=== PATIENT | female | born 1960 | race Caucasian/White ===

== ENCOUNTER → 2016-04-29 | Outpatient (CLI) | payer MEDICAID ==
[~2016-04-29] MED LIST: ACLI400A INH; ALBU0.8322 IH; ALBU2.5V4 INH; ALBU8.5H2 IH; ALBU8.5H2 PO; ALPR.5T PO; ALPR0.254 PO; ALPR0.5T7 PO; AZIT-21 PO; AZIT500T PO; CEFD300C PO; CEFD300C3 PO; CITA20TA4 PO; CLN150C PO; D50KC PO; DICL500C PO; DXCC100C PO; FLUT16SP22; FLUT1DIS27 IH; HYDR-2856 PO; HYDR1TAB PO; HYDR25TA4 PO; IBP800T PO; IPRA3AMP11 INH; IPRA4AER IH; IPRA4AER INH; LEVO500T69 PO; LORA10TA7 PO; LOSA50TA6 PO; Levofloxacin PO; Loratadine PO; MELO-195 PO; MONT10TA21 PO; MULT-974 PO; Montelukast Sodium PO; ONDA8TAB9 PO; POTA10CA43 PO; PRD20T PO; PRD50T PO; PRM25T PO; Prednisone PO; RT-COMBINH IH; SLMFT1E IH; TRAZ-144 PO; TRM50T PO; ZEMAIRA IV; [UNRECOGNIZED DRUG - OTHER]
[2016-04-29 14:30] LABS: BLOOD UREA NITROGEN 20 MG/DL (7-18); BUN/CREATININE RATIO 27; CREATININE SERUM 0.73 MG/DL (0.60-1.30); GFR ESTIMATED > 60
== END ==
LOC: LAB 14:02
PROVIDERS: ATTEND Internal Medicine Critical Care Medicine
DX: R09.02 Hypoxemia (principal)
CPT/HCPCS: 36415; 82565; 84520

== ENCOUNTER → 2016-04-30 | Outpatient (CLI) | payer MEDICAID ==
[~2016-04-30] MED LIST changes: +CATHETER FLUSH 10 ML SYR IV PRN; +IOHEXOL 350 MG/ML 100 ML (OMNIPAQUE 350) VIAL IV ONE; +NS 100 ML (IVPB) BAG IV ONE
--- NOTE | 2016-04-30 14:15 | Diagnostic Imaging Report ---
PROCEDURE: CT chest with contrast only. TECHNIQUE: Multiple contiguous axial images were obtained through the chest after administration of intravenous contrast. INDICATION: Asthma, anxiety, shortness of breath, oxygen at rehabilitation fell onto the 70% range. COMPARISON STUDY: CTA of the chest from 01/28/16. FINDINGS: Standard noncontrast images demonstrate no large pulmonary emboli. Smaller vessels cannot be well evaluated. No aortic dissection or aneurysm is present. The heart size is normal. No vascular calcifications are seen. There is no abnormal adenopathy. The visualized portions of the abdomen appear normal. Emphysematous changes are again seen within the lungs. No acute infiltrates are present. There are no pulmonary nodules. IMPRESSION: Stable emphysematous changes. Dictated by: Dictated on workstation # [id number]
== END ==
LOC: RAD 12:37
PROVIDERS: ATTEND Internal Medicine Critical Care Medicine
DX: R09.02 Hypoxemia (principal); R06.02 Shortness of breath; J45.909 Unspecified asthma, uncomplicated; E88.01 Alpha-1-antitrypsin deficiency; F41.9 Anxiety disorder, unspecified
CPT/HCPCS: 71260

== ENCOUNTER → 2016-05-27 | Outpatient (RCR) | payer MEDICAID ==
[2016-02-27 10:59] LABS: BASOPHILS # (AUTO) 0.1 10^3/uL (0.0-0.1); BASOPHILS % (AUTO) 1 % (0-10); EOSINOPHILS # (AUTO) 0.2 10^3/uL (0.0-0.3); EOSINOPHILS % (AUTO) 3 % (0-10); LYMPHOCYTES % (AUTO) 20 % (12-44); MEAN CORPUSCULAR HEMOGLOBIN 29 PG (25-34); MEAN CORPUSCULAR HGB CONC 33 G/DL (32-36); MEAN CORPUSCULAR VOLUME 88 FL (80-99); MEAN PLATELET VOLUME 10.4 FL (7.4-10.4); MONOCYTES # (AUTO) 0.8 X 10^3 (0.0-1.0); MONOCYTES % (AUTO) 15 % (0-12); NEUTROPHILS % (AUTO) 60 % (42-75); PLATELET COUNT 157 10^3/uL (130-400); RED BLOOD COUNT 4.75 10^6/uL (4.35-5.85); RED CELL DISTRIBUTION WIDTH 13.8 % (10.0-14.5)
[2016-02-27 11:45] LABS: ALANINE AMINOTRANSFERASE 20 U/L (0-55); ALBUMIN 3.9 G/DL (3.2-4.5); ANION GAP 7 MMOL/L (5-14); ASPARTATE AMINO TRANSFERASE 17 U/L (5-34); BILIRUBIN,TOTAL 0.4 MG/DL (0.1-1.0); BLOOD UREA NITROGEN 21 MG/DL (7-18); BUN/CREATININE RATIO 28; CALCIUM 9.3 MG/DL (8.5-10.1); CARBON DIOXIDE 29 MMOL/L (21-32); CHLORIDE 102 MMOL/L (98-107); CREATININE SERUM 0.74 MG/DL (0.60-1.30); GFR ESTIMATED > 60; GLUCOSE 103 MG/DL (70-105); POTASSIUM 4.3 MMOL/L (3.6-5.0); SODIUM 138 MMOL/L (135-145)
[~2016-05-27] MED LIST changes: -CATHETER FLUSH 10 ML SYR IV PRN; -IOHEXOL 350 MG/ML 100 ML (OMNIPAQUE 350) VIAL IV ONE; -NS 100 ML (IVPB) BAG IV ONE
== END | disposition home or self-care (01) ==
LOC: ONC 02-27 10:34 → PULM 03-18 08:18
PROVIDERS: ATTEND Nurse Practitioner Family
DX: D50.9 Iron deficiency anemia, unspecified (principal); E88.01 Alpha-1-antitrypsin deficiency; I12.9 Hypertensive chronic kidney disease with stage 1 through stage 4 chronic kidney disease, or unspecified chronic kidney disease; N18.9 Chronic kidney disease, unspecified; J44.9 Chronic obstructive pulmonary disease, unspecified; Z79.899 Other long term (current) drug therapy
CPT/HCPCS: 36415; 80053; 82728; 85025; 99211; 99213

== ENCOUNTER → 2016-08-05 | Outpatient (CLI) | payer MEDICAID ==
--- NOTE | 2016-08-05 14:25 | Diagnostic Imaging Report ---
EXAMINATION: PA and lateral views of the chest. INDICATION: Bronchitis. FINDINGS: There is an infusion port through the left subclavian vein with the tip at the cavoatrial junction. The lungs are hyperinflated. There is blunting of the left costophrenic angle suggestive of small effusion or pleural thickening, similar to 01/28/2016. There is minimal bibasilar atelectasis. The mediastinum and héctor appear unremarkable. IMPRESSION: COPD. Minimal bibasilar atelectasis. Dictated by: Dictated on workstation # [id number]
== END ==
LOC: RAD 12:32
PROVIDERS: ATTEND Nurse Practitioner Family
DX: J40 Bronchitis, not specified as acute or chronic (principal); J96.10 Chronic respiratory failure, unspecified whether with hypoxia or hypercapnia
CPT/HCPCS: 71020

== ENCOUNTER 2016-08-21 13:00 | Outpatient (RCR) | payer MEDICAID | END 2016-09-03 | disposition home or self-care (01) | LOC: PULM 13:00 | PROVIDERS: ATTEND Nurse Practitioner Family | DX: D50.9 Iron deficiency anemia, unspecified (principal); E88.01 Alpha-1-antitrypsin deficiency; I12.9 Hypertensive chronic kidney disease with stage 1 through stage 4 chronic kidney disease, or unspecified chronic kidney disease; N18.9 Chronic kidney disease, unspecified; J44.9 Chronic obstructive pulmonary disease, unspecified; Z79.899 Other long term (current) drug therapy ==

== ENCOUNTER 2016-09-17 09:01 | Outpatient (RCR) | payer MEDICAID ==
[2016-09-16 14:06] LABS: BASOPHILS # (AUTO) 0.1 10^3/uL (0.0-0.1); BASOPHILS % (AUTO) 1 % (0-10); EOSINOPHILS # (AUTO) 0.2 10^3/uL (0.0-0.3); EOSINOPHILS % (AUTO) 4 % (0-10); LYMPHOCYTES # (AUTO) 1.3 X 10^3 (1.0-4.0); LYMPHOCYTES % (AUTO) 24 % (12-44); MEAN CORPUSCULAR HEMOGLOBIN 29 PG (25-34); MEAN CORPUSCULAR HGB CONC 32 G/DL (32-36); MEAN CORPUSCULAR VOLUME 89 FL (80-99); MEAN PLATELET VOLUME 10.3 FL (7.4-10.4); MONOCYTES # (AUTO) 0.6 X 10^3 (0.0-1.0); MONOCYTES % (AUTO) 11 % (0-12); NEUTROPHILS # (AUTO) 3.1 X 10^3 (1.8-7.8); NEUTROPHILS % (AUTO) 60 % (42-75); PLATELET COUNT 182 10^3/uL (130-400); RED BLOOD COUNT 4.62 10^6/uL (4.35-5.85); RED CELL DISTRIBUTION WIDTH 14.1 % (10.0-14.5); WHITE BLOOD COUNT 5.2 10^3/uL (4.3-11.0)
[2016-09-16 14:46] LABS: ALANINE AMINOTRANSFERASE 20 U/L (0-55); ALBUMIN 3.9 GM/DL (3.2-4.5); ANION GAP 10 MMOL/L (5-14); ASPARTATE AMINO TRANSFERASE 14 U/L (5-34); BILIRUBIN,TOTAL 0.5 MG/DL (0.1-1.0); BLOOD UREA NITROGEN 14 MG/DL (7-18); BUN/CREATININE RATIO 19; CALCIUM 9.4 MG/DL (8.5-10.1); CARBON DIOXIDE 30 MMOL/L (21-32); CHLORIDE 98 MMOL/L (98-107); CREATININE SERUM 0.74 MG/DL (0.60-1.30); GFR ESTIMATED > 60; GLUCOSE 88 MG/DL (70-105); POTASSIUM 3.9 MMOL/L (3.6-5.0); SODIUM 138 MMOL/L (135-145); TOTAL PROTEIN 7.1 GM/DL (6.4-8.2)
== END 2016-11-22 | disposition home or self-care (01) ==
LOC: ONC 09:01
PROVIDERS: ATTEND Internal Medicine Hematology & Oncology
DX: D50.9 Iron deficiency anemia, unspecified (principal); E88.01 Alpha-1-antitrypsin deficiency; I12.9 Hypertensive chronic kidney disease with stage 1 through stage 4 chronic kidney disease, or unspecified chronic kidney disease; N18.9 Chronic kidney disease, unspecified; J44.9 Chronic obstructive pulmonary disease, unspecified; Z79.899 Other long term (current) drug therapy
CPT/HCPCS: 36415; 80053; 82728; 85025; 99213

== ENCOUNTER 2016-10-28 13:00 | Outpatient (RCR) | payer MEDICAID | END 2016-11-22 | disposition home or self-care (01) | LOC: PULM 13:00 | PROVIDERS: ATTEND Nurse Practitioner Family | DX: D50.9 Iron deficiency anemia, unspecified (principal); E88.01 Alpha-1-antitrypsin deficiency; I12.9 Hypertensive chronic kidney disease with stage 1 through stage 4 chronic kidney disease, or unspecified chronic kidney disease; N18.9 Chronic kidney disease, unspecified; J44.9 Chronic obstructive pulmonary disease, unspecified; Z79.899 Other long term (current) drug therapy ==

== ENCOUNTER 2017-02-03 13:00 | Outpatient (RCR) | payer MEDICAID | END 2017-02-23 | disposition home or self-care (01) | LOC: PULM 13:00 | PROVIDERS: ATTEND Nurse Practitioner Family | DX: D50.9 Iron deficiency anemia, unspecified (principal); E88.01 Alpha-1-antitrypsin deficiency; I12.9 Hypertensive chronic kidney disease with stage 1 through stage 4 chronic kidney disease, or unspecified chronic kidney disease; N18.9 Chronic kidney disease, unspecified; J44.9 Chronic obstructive pulmonary disease, unspecified; Z79.899 Other long term (current) drug therapy ==

== ENCOUNTER 2017-04-07 13:00 | Outpatient (RCR) | payer MEDICAID | END 2017-05-25 | disposition home or self-care (01) | LOC: PULM 13:00 | PROVIDERS: ATTEND Nurse Practitioner Family | DX: D50.9 Iron deficiency anemia, unspecified (principal); E88.01 Alpha-1-antitrypsin deficiency; I12.9 Hypertensive chronic kidney disease with stage 1 through stage 4 chronic kidney disease, or unspecified chronic kidney disease; N18.9 Chronic kidney disease, unspecified; J44.9 Chronic obstructive pulmonary disease, unspecified; Z79.899 Other long term (current) drug therapy ==

== ENCOUNTER 2017-09-24 08:57 | Outpatient (RCR) | payer MEDICAID ==
[2017-09-17 15:50] LABS: BASOPHILS # (AUTO) 0.1 10^3/uL (0.0-0.1); BASOPHILS % (AUTO) 1 % (0-10); EOSINOPHILS # (AUTO) 0.2 10^3/uL (0.0-0.3); EOSINOPHILS % (AUTO) 3 % (0-10); HEMATOCRIT 43 % (35-52); HEMOGLOBIN 14.6 G/DL (11.5-16.0); LYMPHOCYTES # (AUTO) 1.3 X 10^3 (1.0-4.0); LYMPHOCYTES % (AUTO) 25 % (12-44); MEAN CORPUSCULAR HEMOGLOBIN 30 PG (25-34); MEAN CORPUSCULAR HGB CONC 34 G/DL (32-36); MEAN CORPUSCULAR VOLUME 87 FL (80-99); MEAN PLATELET VOLUME 10.6 FL (7.4-10.4); MONOCYTES # (AUTO) 0.5 X 10^3 (0.0-1.0); MONOCYTES % (AUTO) 10 % (0-12); NEUTROPHILS # (AUTO) 3.2 X 10^3 (1.8-7.8); NEUTROPHILS % (AUTO) 61 % (42-75); PLATELET COUNT 189 10^3/uL (130-400); RED BLOOD COUNT 4.89 10^6/uL (4.35-5.85); RED CELL DISTRIBUTION WIDTH 13.6 % (10.0-14.5); WHITE BLOOD COUNT 5.3 10^3/uL (4.3-11.0)
[2017-09-17 16:10] LABS: ALANINE AMINOTRANSFERASE 18 U/L (0-55); ALBUMIN 4.1 GM/DL (3.2-4.5); ALKALINE PHOSPHATASE 94 U/L (40-136); BILIRUBIN,TOTAL 0.6 MG/DL (0.1-1.0); BUN/CREATININE RATIO 16; CALCIUM 10.2 MG/DL (8.5-10.1); CARBON DIOXIDE 29 MMOL/L (21-32); CHLORIDE 103 MMOL/L (98-107); GFR ESTIMATED > 60; GLUCOSE 94 MG/DL (70-105); POTASSIUM 4.8 MMOL/L (3.6-5.0); SODIUM 138 MMOL/L (135-145); TOTAL PROTEIN 7.2 GM/DL (6.4-8.2)
[~2017-09-24 08:57] MED LIST changes: +ACLI400A2 IH; +ALBU90AE IH; +ALPH1000 IV; +AZIT250T12 PO; +CETI10TA17 PO; +CITA20TA9 PO; +FLUT16SP22 NSEACH; +FLUT1DIS26 IH; +FURO40TA4 PO; +LOSA50TA7 PO; +MELO15TA39 PO; +MONT10TA24 PO; +MULT-1021 PO; +PRD10T PO; +TRAZ-190 PO
== END 2017-12-16 | disposition home or self-care (01) ==
LOC: ONC 08:57
PROVIDERS: ATTEND Internal Medicine Hematology & Oncology
DX: D50.9 Iron deficiency anemia, unspecified (principal); E88.01 Alpha-1-antitrypsin deficiency; I12.9 Hypertensive chronic kidney disease with stage 1 through stage 4 chronic kidney disease, or unspecified chronic kidney disease; N18.9 Chronic kidney disease, unspecified; J44.9 Chronic obstructive pulmonary disease, unspecified; Z79.899 Other long term (current) drug therapy
CPT/HCPCS: 80053; 82728; 85025; 99213

== ENCOUNTER → 2017-10-07 | Outpatient (CLI) | payer MEDICAID ==
[~2017-10-07] MED LIST changes: +LOSA50TA36 PO; -LOSA50TA7 PO; +RT-ALBUTEROL SULF 2.5 MG/3 ML PRE-MIX VIAL INH ONE; +RT-ALBUTEROL SULF 2.5 MG/3 ML PRE-MIX VIAL ONE
== END ==
LOC: RT 11:39
PROVIDERS: ATTEND Nurse Practitioner Family
DX: J96.10 Chronic respiratory failure, unspecified whether with hypoxia or hypercapnia (principal); J45.909 Unspecified asthma, uncomplicated; E88.01 Alpha-1-antitrypsin deficiency; E66.01 Morbid (severe) obesity due to excess calories; Z68.43 Body mass index [BMI] 50.0-59.9, adult
CPT/HCPCS: 94060; 94726; 94729

== ENCOUNTER 2017-10-27 10:00 | Outpatient (RCR) | payer MEDICAID ==
[2017-09-29 10:15] VITALS: BP 120/70
[2017-09-29 11:09] VITALS: BP 120/80
[2017-10-01 10:05] VITALS: BP 150/60
[2017-10-01 11:10] VITALS: BP 120/60
[2017-10-08 10:00] VITALS: BP 110/60
[2017-10-08 11:00] VITALS: BP 120/80
[2017-10-15 10:00] VITALS: BP 120/60
[2017-10-15 11:02] VITALS: BP 120/70
[~2017-10-27 10:00] MED LIST changes: -LOSA50TA36 PO; +LOSA50TA7 PO; -RT-ALBUTEROL SULF 2.5 MG/3 ML PRE-MIX VIAL INH ONE; -RT-ALBUTEROL SULF 2.5 MG/3 ML PRE-MIX VIAL ONE
[2017-10-27 10:05] VITALS: BP 125/75
[2017-11-12 10:20] VITALS: BP 116/80
[2017-11-12 10:55] VITALS: BP 139/61
== END 2017-11-08 | disposition home or self-care (01) ==
LOC: PULM 10:00
PROVIDERS: ATTEND Internal Medicine Critical Care Medicine
DX: J96.10 Chronic respiratory failure, unspecified whether with hypoxia or hypercapnia (principal); J45.909 Unspecified asthma, uncomplicated; E88.01 Alpha-1-antitrypsin deficiency; E66.01 Morbid (severe) obesity due to excess calories
CPT/HCPCS: 99211

== ENCOUNTER → 2017-10-29 | Outpatient (CLI) | payer MEDICAID ==
--- NOTE | 2017-10-29 12:34 | Diagnostic Imaging Report ---
EXAM: PA and lateral Chest 11:14 INDICATION: Shortness of breath. FINDINGS: The heart size is within normal limits and stable when compared to 06/27/2017. Also, as noted on the prior exam, there are coarse perihilar markings bilaterally, mild hyperexpansion of the lungs and blunting of both costophrenic angles. These finding seem similar to the prior study. There is no new area of pneumonia identified and there is no sign of overt congestive failure. The mediastinum is not widened. The osseous structures are intact. The left-sided Port-A-Cath seen previously is unchanged in position with the tip overlying the distal superior vena cava. IMPRESSION: Stable chest. When compared to the prior study, there has been no adverse change. There is no acute abnormality identified. Dictated by: Dictated on workstation # [id number]
== END ==
LOC: RAD 10:13
PROVIDERS: ATTEND Nurse Practitioner Family
DX: R06.02 Shortness of breath (principal)
CPT/HCPCS: 71046

== ENCOUNTER → 2017-11-16 | Outpatient (CLI) | payer MEDICAID ==
[~2017-11-16] MED LIST changes: +CATHETER FLUSH 10 ML SYR IV PRN; +IOHEXOL 350 MG/ML 150 ML (OMNIPAQUE 350) VIAL IV ONE; +NS 250 ML (IVPB) BAG IV ONE
[2017-11-16 09:31] LABS: BUN/CREATININE RATIO 29; CREATININE SERUM 0.73 MG/DL (0.60-1.30); GFR ESTIMATED > 60
--- NOTE | 2017-11-16 10:10 | Diagnostic Imaging Report ---
PROCEDURE: CT angiography of the chest with contrast. TECHNIQUE: Multiple contiguous axial images were obtained through the chest after uneventful bolus administration of intravenous contrast. 2D reconstructed CTA MIP acquisitions were also performed. INDICATION: Shortness of breath and hypoxia. FINDINGS: There is moderate centrilobular emphysematous change. There is some scarring in the lingula as well as the right lower lobe. There is no pleural or pericardial fluid. There is no pneumothorax. There is no pathologically enlarged adenopathy in the chest. Thoracic aorta is normal in caliber without evidence of dissection. There are no filling defects within the pulmonary arteries to suggest pulmonary embolism. There are degenerative changes in the spine. Visualized intraabdominal structures are unremarkable. IMPRESSION: Moderately severe centrilobular emphysema with scarring in the lingula and right lower lobe. No evidence of pulmonary embolism or aortic dissection. Dictated by: Dictated on workstation # [id number]
== END ==
LOC: RAD 09:03
PROVIDERS: ATTEND Internal Medicine Critical Care Medicine
DX: J43.2 Centrilobular emphysema (principal); E88.01 Alpha-1-antitrypsin deficiency; E66.01 Morbid (severe) obesity due to excess calories; J96.10 Chronic respiratory failure, unspecified whether with hypoxia or hypercapnia; J45.909 Unspecified asthma, uncomplicated
CPT/HCPCS: 36415; 71275; 82565; 84520

== ENCOUNTER 2018-01-12 10:00 | Outpatient (RCR) | payer MEDICAID ==
[2017-11-24 10:00] VITALS: BP 158/64
[2017-11-24 11:00] VITALS: BP 142/60
[2017-12-03 09:55] VITALS: BP 120/70
[2017-12-08 10:00] VITALS: BP 116/70
[2017-12-08 11:00] VITALS: BP 120/80
[2017-12-15 10:00] VITALS: BP 140/80
[2017-12-15 11:00] VITALS: BP 115/40
[2017-12-17 09:53] VITALS: BP 135/70
[2017-12-17 11:00] VITALS: BP 120/80
[2017-12-29 09:50] VITALS: BP 140/60
[2017-12-29 11:00] VITALS: BP 140/85
[2017-12-31 10:00] VITALS: BP 130/90
[2017-12-31 11:00] VITALS: BP 138/80
[2018-01-07 10:00] VITALS: BP 122/60
[2018-01-07 11:00] VITALS: BP 122/60
[2018-01-12 10:00] VITALS: BP 120/60
[~2018-01-12 10:00] MED LIST changes: -CATHETER FLUSH 10 ML SYR IV PRN; -IOHEXOL 350 MG/ML 150 ML (OMNIPAQUE 350) VIAL IV ONE; -NS 250 ML (IVPB) BAG IV ONE
[2018-01-12 11:00] VITALS: BP 115/70
[2018-02-02 10:00] VITALS: BP 118/65
== END 2018-02-22 | disposition home or self-care (01) ==
LOC: PULM 10:00
PROVIDERS: ATTEND Internal Medicine Critical Care Medicine
DX: J96.10 Chronic respiratory failure, unspecified whether with hypoxia or hypercapnia (principal); J45.909 Unspecified asthma, uncomplicated; E88.01 Alpha-1-antitrypsin deficiency; E66.01 Morbid (severe) obesity due to excess calories

== ENCOUNTER 2018-03-20 18:12 | Emergency (ER) | payer MEDICAID | END 2018-03-20 20:10 | disposition home or self-care (01) | LOC: ER 18:12 ==

== ENCOUNTER 2018-04-22 11:17 | Outpatient (RCR) | payer MEDICAID ==
[2018-02-18] MEDS: ALPHA 1 PROTEINASE INHIBITOR IV SCH ×2 (11:21)
[2018-02-18 11:45] VITALS: BP 116/73
[2018-02-25] MEDS: ALPHA 1 PROTEINASE INHIBITOR IV SCH ×2 (11:31)
[2018-02-25 11:55] VITALS: BP 132/85
[2018-03-04 11:00] VITALS: BP 149/55
[2018-03-04] MEDS: ALPHA 1 PROTEINASE INHIBITOR IV SCH ×2 (11:37)
[2018-03-11] MEDS: ALPHA 1 PROTEINASE INHIBITOR IV SCH ×2 (12:24)
[2018-03-11 12:40] VITALS: BP 111/89
[2018-03-25 11:32] VITALS: BP 138/94
[2018-04-06 12:15] VITALS: BP 136/60
[2018-04-13 11:37] VITALS: BP 107/74
[2018-04-13] MEDS: ALPHA 1 PROTEINASE INHIBITOR IV SCH ×2 (11:45)
[~2018-04-22] VITALS: Ht 165.1 cm; Wt 140.6 kg
[2018-04-22 11:17] VITALS: BP 116/87
[~2018-04-22 11:17] MED LIST changes: +ALPHA 1 PROTEINASE INHIBITOR IV ONE; +ALPHA 1 PROTEINASE INHIBITOR XX SCH; +BENZ100C18 PO; +CATHETER FLUSH 10 ML SYR IV PRN; +DOXY100C42 PO; +EPINEPHrine INJECTION 1 MG/ML AMP IM/IV/SC PRN; +GUAI1TBM19 PO; +LOSA50TA63 PO; -LOSA50TA7 PO; +METH4TAB PO
[2018-04-22] MEDS: ALPHA 1 PROTEINASE INHIBITOR IV SCH ×2 (11:45)
[2018-04-22] MEDS ORDERED: HEParin (CENTRAL IV FLUSH) 500 UNIT/5 ML SYR ONE (12:01)
[2018-04-22] MEDS ORDERED: HEParin (CENTRAL IV FLUSH) 500 UNIT/5 ML SYR IV ONE (12:15)
== END 2018-04-22 12:05 | disposition home or self-care (01) ==
LOC: SDC 11:17
PROVIDERS: ATTEND Internal Medicine Critical Care Medicine
DX: E88.01 Alpha-1-antitrypsin deficiency (principal)
CPT/HCPCS: 96365

== ENCOUNTER 2018-05-27 10:34 | Emergency (ER) | payer MEDICAID ==
[~2018-05-27] VITALS: Ht 165.1 cm; Wt 133.8 kg
[~2018-05-27 10:34] MED LIST changes: -ALPHA 1 PROTEINASE INHIBITOR IV ONE; -ALPHA 1 PROTEINASE INHIBITOR XX SCH; -CATHETER FLUSH 10 ML SYR IV PRN; -EPINEPHrine INJECTION 1 MG/ML AMP IM/IV/SC PRN
--- NOTE | 2018-05-27 10:52 | ED General ---
General Stated Complaint: IRREGULAR HEART BEAT;LOW OXYGEN Source of Information: Patient Exam Limitations: No Limitations History of Present Illness Date Seen by Provider: May 27, 2018 Time Seen by Provider: 10:50 Initial Comments To ER with reports of irregular heartbeat and low oxygen. Patient has COPD and wears oxygen [id number]. Today while at pulmonary rehabilitation they noticed her pulse to be irregular so they referred her to the emergency room. She states that she feels normal now and that this irregular pulse seems to come with exertion, she has been weaker than usual for the past few days. No fevers or chills. She is 94% on her baseline supplemental oxygen, heart rate is in the 80s sinus with occasional PVC. Timing/Duration: 1/2 Hour Severity: Mild Associated Systoms: No Chest Pain, No Cough, No Diaphoresis, No Fever/Chills, No Headaches, No Loss of Appetite; Malaise; No Nausea/Vomiting, No Rash, No Seizure, No Shortness of Air, No Syncope; Weakness Allergies and Home Medications Allergies Coded Allergies: Penicillins (Verified Allergy, Unknown, 03/29/18) Home Medications Aclidinium [place] 400 Mcg Aer.pow.ba, 1 PUFF IH BID, (Reported) Albuterol Sulfate 90 Mcg Aer.pow.ba, 2 PUFF IH QID PRN for SHORTNESS OF BREATH, (Reported) USE WITH SPACER Albuterol/Ipratropium 4 Gm Aero, 1 PUFF IH Q4H PRN for SHORTNESS OF BREATH, ( Reported) Wyhkb-4-Qducrmnynt Inhibitor 1,000 Mg Vial, IV We, (Reported) Alprazolam 0.25 Mg Tablet, 0.25 MG PO QID PRN for ANXIETY, (Reported) Azithromycin 250 Mg Tablet, 250 MG PO DAILY Prescribed by: TAWANNA FLEMING on 07/10/17 1009 Benzonatate 100 Mg Capsule, 1-2 TAB PO TID Prescribed by: TAMMY MINOR on 03/20/181917 Cetirizine HCl 10 Mg Tablet, 10 MG PO DAILY, (Reported) Citalopram Hydrobromide 20 Mg Tablet, 30 MG PO DAILY, (Reported) TAKES 1 & 1/2 OF A (20 MG) TABLET Doxycycline Monohydrate 100 Mg Capsule, 100 MG PO BID Prescribed by: TAMMY MINOR on 03/20/181917 Fluticasone Propionate 16 Gm [place].susp, 2 SPRAYS NSEACH DAILY, (Reported) Fluticasone/Salmeterol 1 Each Blst.w.dev, 1 PUFF IH BID, (Reported) RINSE MOUTH AND THROAT AFTER EACH USE Furosemide 40 Mg Tablet, 40 MG PO Q48H, (Reported) Guaifenesin/Dextromethorphan 1 Each Tbmp.12hr, 1 EACH PO BID Prescribed by: TAMMY MINOR on 03/20/181917 Losartan Potassium 50 Mg Tablet, 50 MG PO DAILY, (Reported) Meloxicam 15 Mg Tablet, 15 MG PO DAILY, (Reported) Methylprednisolone 4 Mg Tab.ds.pk, 4 MG PO UD Prescribed by: TAMMY MINOR on 03/20/181917 Montelukast Sodium 10 Mg Tablet, 10 MG PO HS, (Reported) Multivits-Min/Iron/FA/Lutein 1 Each Tablet, 1 TAB PO DAILY, (Reported) Prednisone 10 Mg Tab, 50 MG PO DAILY 50 mg x1 day, 40 mg x2 day, 30 mg x2 day, 20 mg x2 day, 10 mg x1 day Prescribed by: TAWANNA FLEMING on 07/10/17 100 Trazodone HCl 100 Mg Tablet, 100 MG PO HS, (Reported) Patient Home Medication List Home Medication List Reviewed: Yes Review of Systems Review of Systems Constitutional: see HPI, weakness EENTM: see HPI Respiratory: dyspnea on exertion (chronic and unchanged) Cardiovascular: No chest pain; palpitations Genitourinary: no symptoms reported Musculoskeletal: no symptoms reported Skin: no symptoms reported Psychiatric/Neurological: No Symptoms Reported Past Kprefuv-Tgzhtf-Fovhkm Hx Patient Social History Type Used: Cigarettes Former Smoker, Quit: July 05, 2006 2nd Hand Smoke Exposure: No (quit 2006) Recent Hopitalizations: No Immunizations Up To Date Tetanus Booster (TDap): Less than 5yrs PED Vaccines UTD: Yes Date of Pneumonia Vaccine: Oct 24, 2016 Date of Influenza Vaccine: Nov 24, 2015 Seasonal Allergies Seasonal Allergies: Yes Past Medical History Surgeries: Yes ( THORACENTISIS LEFT LUNG, LUNG BIOPSY; PORT LEFT CHEST) Tubal Ligation, Vascular Surgery 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) Asthma, Pneumonia, Chronic Bronchitis, COPD, Emphysema Currently Using CPAP: No Currently Using BIPAP: No Cardiac: Yes High Cholesterol, Hypertension Neurological: No Reproductive Disorders: No [employer] WORKER History: Tubal Ligation, Menopausal Sexually Transmitted Disease: No HIV/AIDS: No Genitourinary: No Gastrointestinal: No Musculoskeletal: Yes Arthritis Endocrine: No (OBESITY) HEENT: No Cancer: No Psychosocial: Yes Anxiety, Depression Integumentary: No Blood Disorders: No Adverse Reaction/Blood Tranf: No Family Medical History Cancer maternal uncle, Onset:40's - 50 Family history: Cardiovascular disease maternal grandmother, Onset:50's - 60 maternal grandfather, Onset:50's - 60 Psychotic disorder 03 MOTHER, Onset:20's - 25 Visual impairment maternal grandmother, Onset:50's - 60 Physical Exam Vital Signs Vital Signs - First Documented 05/27/18 10:35 Temp 98.6 Pulse 81 Resp 18 B/P (MAP) 145/91 (109) Pulse Ox 96 O2 Delivery Nasal Cannula O2 Flow Rate 3.00 Capillary Refill : Height, Weight, BMI Height: 5'5.00" Weight: 299lbs. 0.8oz. 140.332613ny; 50.1 BMI Method:Stated General Appearance: No Apparent Distress, WD/WN, Obese, Other (alert and oriented. Very pleasant. Oxygen saturation 94% on her baseline supplemental oxygen, heart rate is in the 80s sinus with rare PVC on telemetry monitoring) Eyes: Bilateral Eye Normal Inspection, Bilateral Eye PERRL HEENT: PERRL/EOMI, Normal ENT Inspection Neck: Full Range of Motion, Normal Inspection Respiratory: Normal Breath Sounds, No Accessory Muscle Use, No Respiratory Distress; No Wheezing Cardiovascular: Regular Rate, Rhythm, Normal Peripheral Pulses Gastrointestinal: Normal Bowel Sounds, Non Tender, Soft Extremity: Normal Capillary Refill, Normal Inspection Neurologic/Psychiatric: Alert, Oriented x3 Skin: Normal Color, Warm/Dry Progress/Results/Core Measures Suspected Sepsis SIRS Temperature: Pulse: Respiratory Rate: Laboratory Tests 05/27/18 10:47: White Blood Count 6.9 Blood Pressure / Mean: Laboratory Tests 05/27/18 10:47: Creatinine 0.83, INR Comment 1.0, Platelet Count 211, Total Bilirubin 0.5 Results/Orders Lab Results Laboratory Tests Test 05/27/18 10:47 Range/Units White Blood Count 6.9 4.3-11.0 10^3/uL Red Blood Count 5.01 4.35-5.85 10^6/uL Hemoglobin 14.6 11.5-16.0 G/DL Hematocrit 45 35-52 % Mean Corpuscular Volume 90 80-99 FL Mean Corpuscular Hemoglobin 29 25-34 PG Mean Corpuscular Hemoglobin Concent 32 32-36 G/DL Red Cell Distribution Width 13.7 10.0-14.5 % Platelet Count 211 130-400 10^3/uL Mean Platelet Volume 10.5 H 7.4-10.4 FL Neutrophils (%) (Auto) 66 42-75 % Lymphocytes (%) (Auto) 18 12-44 % Monocytes (%) (Auto) 12 0-12 % Eosinophils (%) (Auto) 3 0-10 % Basophils (%) (Auto) 1 0-10 % Neutrophils # (Auto) 4.6 1.8-7.8 X 10^3 Lymphocytes # (Auto) 1.3 1.0-4.0 X 10^3 Monocytes # (Auto) 0.8 0.0-1.0 X 10^3 Eosinophils # (Auto) 0.2 0.0-0.3 10^3/uL Basophils # (Auto) 0.1 0.0-0.1 10^3/uL Prothrombin Time 13.5 12.2-14.7 SEC INR Comment 1.0 0.8-1.4 Activated Partial Thromboplast Time 31 24-35 SEC Sodium Level 138 135-145 MMOL/L Potassium Level 4.0 3.6-5.0 MMOL/L Chloride Level 101 98-107 MMOL/L Carbon Dioxide Level 29 21-32 MMOL/L Anion Gap 8 5-14 MMOL/L Blood Urea Nitrogen 20 H 7-18 MG/DL Creatinine 0.83 0.60-1.30 MG/DL Estimat Glomerular Filtration Rate > 60 BUN/Creatinine Ratio 24 Glucose Level 102 70-105 MG/DL Calcium Level 10.4 H 8.5-10.1 MG/DL Corrected Calcium 10.2 H 8.5-10.1 MG/DL Magnesium Level 2.2 1.8-2.4 MG/DL Total Bilirubin 0.5 0.1-1.0 MG/DL Aspartate Amino Transf (AST/SGOT) 16 5-34 U/L Alanine Aminotransferase (ALT/SGPT) 19 0-55 U/L Alkaline Phosphatase 133 40-136 U/L Myoglobin 36.3 10.0-92.0 NG/ML Troponin I < 0.028 <0.028 NG/ML B-Type Natriuretic Peptide 19.1 <100.0 PG/ML Total Protein 8.0 6.4-8.2 GM/DL Albumin 4.3 3.2-4.5 GM/DL My Orders Orders - CRYSTAL DEMARCO APRN Cbc With Automated Diff (05/27/18 10:42) Magnesium (05/27/18 10:42) Chest 1 View, Ap/Pa Only (05/27/18 10:42) Ekg Tracing (05/27/18 10:42) Cardiac Profile 1 (05/27/18 10:42) Comprehensive Metabolic Panel (05/27/18 10:42) Myoglobin Serum (05/27/18 10:42) Protime With Inr (05/27/18 10:42) Partial Thromboplastin Time (05/27/18 10:42) O2 (05/27/18 10:42) Monitor-Rhythm Ecg Trace Only (05/27/18 10:42) Lipid Panel (05/28/18 06:00) Saline Lock/Iv-Start (05/27/18 10:42) BNP (05/27/18 10:42) Vital Signs/I&O 05/27/18 05/27/18 10:35 10:35 Temp 98.6 Pulse 81 Resp 18 B/P (MAP) 145/91 (109) Pulse Ox 96 96 O2 Delivery Nasal Cannula Nasal Cannula O2 Flow Rate 3.00 3.00 Capillary Refill : Diagnostic Imaging Diagonstic Imaging: CT Comments NAME: PATTIE JACKSON [facility] REC#: [id number] PT STATUS: REG ER : 1960 PHYSICIAN: CRYSTAL DEMARCO APRN ADMIT DATE: 05/27/18/ER Draft Date of Exam:05/27/18 CHEST 1 VIEW, AP/PA ONLY Indication: Hypoxia Frontal chest obtained at 1101 hrs am, and compared to 03/20/2018. Heart and mediastinal silhouette are normal in appearance. Port-A-Cath is unchanged. There is some linear scarring in the left midlung. There is some mild infiltrate versus atelectasis in the right base. There is no pneumothorax or gross pleural fluid. There is chronic blunting of the left costophrenic angle. IMPRESSION: Unchanged linear scarring in left midlung. There is some infiltrate versus atelectasis in the right lung base which is increased or new compared to the previous study. There appears to be chronic blunting of the left costophrenic angle. Dictated on workstation # [id number] Dict: 05/27/18 1108 Trans: 05/27/18 1111 [facility] [id number] Interpreted by: ANJANA BUTT MD Electronically signed by: Departure Communication (Admissions) Cefuroxime axetil since she is allergic to penicillins and I will not use a macrolide in addition or fluoroscopy quinolone as substitution due to the potential for QT prolongation when given with her other medications Impression Primary Impression: COPD (chronic obstructive pulmonary disease) Qualified Codes: J44.9 - Chronic obstructive pulmonary disease, unspecified Additional Impressions: Palpitations Pneumonia Dependence on supplemental oxygen Disposition: HOME, SELF-CARE Condition: Stable Departure-Patient Inst. Decision time for Depature: 11:40 Referrals: LEÓN RUDOLPH MD (PCP/Family) Primary Care Physician JACKSON BLACK MD FACP [facility] Randell ANDRADE MD, BASHAR J MD Patient Instructions: Palpitations (DC) Add. Discharge Instructions: 1. Call one of The cardiologists listed to make an appointment to be seen. Return to the emergency room with any concerns or worsening symptoms. Follow-up with your doctor next week. Scripts Cefuroxime Axetil (Cefuroxime) 500 Mg Tablet 500 MG PO BID, #14 TAB Prov: CRYSTAL DEMARCO [employer] 05/27/18 CRYSTAL DEMARCO APRN May 27, 2018 10:52
[2018-05-27 10:55] LABS: BASOPHILS # (AUTO) 0.1 10^3/uL (0.0-0.1); BASOPHILS % (AUTO) 1 % (0-10); EOSINOPHILS # (AUTO) 0.2 10^3/uL (0.0-0.3); EOSINOPHILS % (AUTO) 3 % (0-10); HEMATOCRIT 45 % (35-52); HEMOGLOBIN 14.6 G/DL (11.5-16.0); LYMPHOCYTES # (AUTO) 1.3 X 10^3 (1.0-4.0); LYMPHOCYTES % (AUTO) 18 % (12-44); MEAN CORPUSCULAR HEMOGLOBIN 29 PG (25-34); MEAN CORPUSCULAR HGB CONC 32 G/DL (32-36); MEAN CORPUSCULAR VOLUME 90 FL (80-99); MEAN PLATELET VOLUME 10.5 FL (7.4-10.4); MONOCYTES # (AUTO) 0.8 X 10^3 (0.0-1.0); MONOCYTES % (AUTO) 12 % (0-12); NEUTROPHILS # (AUTO) 4.6 X 10^3 (1.8-7.8); NEUTROPHILS % (AUTO) 66 % (42-75); PLATELET COUNT 211 10^3/uL (130-400); RED CELL DISTRIBUTION WIDTH 13.7 % (10.0-14.5); WHITE BLOOD COUNT 6.9 10^3/uL (4.3-11.0)
--- NOTE | 2018-05-27 11:04 | NUR ---
SEE LIST FROM DR BEE'S OFFICE FOR CURRENT MED LIST
--- OUTSIDE RECORDS SUMMARY | 2018-05-27 11:08 | XMS REPORT ---
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 40991558 Problem Chronic obstructive pulmonary disease, unspecified COPD type J44.9 Active [id number] ALLERGIES No Information ENCOUNTERS Encounter Location Date Diagnosis [place] [address] [address] Nov, [place] [address] [address]- 4694 Sep, [place] [address] [address]- 49[address] Aug, [place] [address] [place] [id number] [place] [address] 12293- 0208 Aug, Muscle strain T14.8 [place] [address] [address]- [address]107 Jul, Chronic obstructive pulmonary disease, unspecified COPD type J44.9 and Contusion of left knee, initial encounter S80.02XA [place] [address] [address]- 9788 May, Exposure to influenza Z20.828 [place] [address] [place] [id number] [place] [address] 25784- 6495 03 Mar, 2016 [place] [address] 82725- 9948 Mar, Acute pain of right knee M25.561 [place] [address] [place] [id number] [place] [address] 29452- 1475 Jan, Venous insufficiency I87.2 and Chronic obstructive pulmonary disease, unspecified J44.9 [facility] [address] [place] [id number] [place] [address] 49449- 3126 Dec, [place] [address] 37588- 9940 Dec, [place] [address] [place] [id number] [place] [address] 47064- 2577 Oct, Chronic obstructive pulmonary disease, unspecified COPD type J44.9 and Weakness R53.1 [place] [address] 66594- 1879 Sep, Cellulitis of left lower extremity L03.116 [place] [address] 93560- 9491 Sep, [place] [address] [place] [id number] [place] [address] 31988- 1944 Sep, [place] [address] [place] [id number] [place] [address] 13933- 8262 Sep, Chronic obstructive pulmonary disease, unspecified J44.9 [place] [address] [place] [id number] [place] [address] 45190- 2688 Aug, Chronic obstructive pulmonary disease, unspecified COPD type J44.9 and Eresh-3-vfxaojnebrd deficiency E88.01 [facility] [address] [place] [id number] [place] [address] 34135- 4399 Aug, [place] [address] [place] [id number] [place] [address] 98630- 0901 May, Sinusitis J32.9 [place] [address] [place] [id number] [place] [address] 12108- 3798 Apr, Exposure to influenza Z20.828 [facility] [address] [place] [address] 2648 Dec, [facility] [address] [place] [id number] [place] [address] 89279- 2781 Oct, [facility] [address] [place] [id number] [address] 8874 Sep, [facility] [address] [place] [id number] [place] [address] 54270- 4423 Sep, [facility] [address] [place] [id number] [place] [address] 59197- 5711 Sep, Bilateral conjunctivitis 372.30 [facility] [address] [place] [id number] [place] [address] 20459- 9214 Sep, [facility] [address] [place] [id number] [place] [address] 09279- 1016 Aug, [facility] [id number] [place] [address] 14616- 5710 Jul, Chronic airway obstruction, not elsewhere classified 496 [facility] [address] [place] [id number] [place] [address] 53247- 3923 June, [facility] [address], [place] [address]- 1817 June, [facility] [address] [address]- 9677 June, [facility] [address] [address]- 3929 June, [facility] [address] [place] [address]- 6164 May, [facility] [address] [place] [address]- 9453 May, [facility] [address] [address]- 1299 Apr, [facility] [place] [facility] [address] [id number] [place] [address]- 3639 Apr, [facility] [place] [facility] [address] [id number] [place] [address]- 1262 Apr, [facility] [place] [facility] [address] [id number] [place] [address]- 4531 Apr, [facility] [place] [facility] [address] [id number] [place] [address]- 7252 Apr, [facility] [place] [facility] [address] [id number] [place] [address]- 8091 Mar, [facility] [place] [facility] [address] [id number] [place] [address]- 6283 Mar, [facility] [place] [facility] [address] [id number] [place] [address]- 1204 Feb, [facility] [place] [facility] [address] [id number] [place] [address]- 5766 Feb, [facility] [place] [facility] [address] [id number] [place] [address]- 7590 Feb, [facility] [place] [facility] [address] [id number] [place] [address]- 9309 Feb, [facility] [place] [facility] [address] [id number] [place] [address]- 0207 Nov, [facility] [place] [facility] [address] [id number] [place] [address]- 8312 Nov, [facility] [place] [facility] [address] [id number] [place] [address]- 3100 Nov, [facility] [place] [facility] [address] [id number] [place] [address]- 2444 Nov, [facility] [place] [facility] [address] [id number] [place] [address]- 6563 Oct, [facility] [place] [facility] [address] [id number] [place] [address]- 1894 Oct, [facility] [place] [facility] [address] [id number] [place] [address]- 5311 Sep, [facility] [place] [facility] [address] [id number] [place] [address]- 7872 Sep, [facility] [place] [facility] [address] [id number] [place] [address]- 0220 Sep, [facility] [place] [facility] [address] [id number] [place] [address]- 1904 Sep, [facility] [place] [facility] [address] [id number] [place] [address]- 0096 Sep, [facility] [place] [facility] [address] [id number] [place] [address]- 8851 Sep, [facility] [place] [facility] [address] [id number] [place] [address]- 2821 Jul, [facility] [place] [facility] [address] [id number] [place] [address]- 6977 Jul, [facility] [place] [facility] [address] [id number] [place] [address]- 8928 Jul, [facility] [place] [facility] [address] [id number] [place] [address]- 3044 Jul, [facility] [place] [facility] [address] [id number] [place] [address]- 6938 May, [facility] [place] [facility] [address] [id number] [place] [address]- 2599 May, [facility] [place] [facility] [address] [id number] [place] [address]- 5693 May, [facility] [place] [facility] [address] [id number] [place] [address]- 5230 May, [facility] [place] [facility] [address] [id number] [place] [address]- 7761 Feb, [facility] [place] [facility] [address] [id number] [place] [address]- 3019 27 Feb, 2013 [facility] [address] [id number] [place] [address]- 8929 Feb, [facility] [place] [facility] [address] [id number] [place] [address]- 4775 16 Feb, 2013 [facility] [address] [id number] [place] [address]- 3946 16 Feb, 2013 [facility] [address] [id number] [place] [address]- 4721 15 Feb, 2013 [facility] [address] [id number] [place] 9972 Jan, [facility] [address] [id number] [place] [address]- 6551 Jan, [facility] [address] [id number] [place] [address]- 8461 Dec, [facility] [address] [id number] [place] [address]- 5073 Dec, [facility] [address] [id number] [place] [address]- 5894 Dec, [facility] [address] [id number] [place] [address]- 5351 Dec, [facility] [place] [facility] [address] [id number] [place] [address]- 2514 Dec, [facility] [address] [id number] [place] [address]- 2400 18 Nov, 2012 [facility] [place] [facility] [address] [id number] [place] [address]- 3974 18 Nov, 2012 [facility] [place] [facility] [address] [id number] [place] [address]- 4064 26 Oct, 2012 [facility] [place] [facility] [address] [id number] [place] [address]- 6473 Oct, [facility] [address] [id number] [place] [address]- 7087 Sep, [facility] [place] [facility] [address] [id number] [place] [address]- 7412 Sep, [facility] [place] [facility] [address] [id number] [place] [address]- 6757 Aug, [facility] [place] [facility] [address] [id number] [place] [address]- 6594 Aug, [facility] [address] [id number] [place] [address]- 7487 Aug, [facility] [place] [facility] [address] [id number] [place] [address]- 5842 Aug, [facility] [place] [facility] [address] [id number] [place] [address]- 0261 June, [facility] [address] [id number] [place] [address]- 9058 Apr, [facility] [place] [facility] [address] [id number] [place] [address]- 9336 Apr, [facility] [place] [facility] [address] [id number] [place] [address]- 3858 Apr, [facility] [place] [facility] [address] [id number] [place] [address]- 7436 Apr, [facility] [place] [facility] [address] [id number] [place] [address]- 6992 Mar, [facility] [place] [facility] [address] [id number] [place] [address]- 1976 Mar, [facility] [place] [facility] [address] [id number] [place] [address]- 7226 Feb, [facility] [place] [facility] [address] [id number] [place] [address]- 6546 Jan, [facility] [place] [facility] [address] [id number] [place] [address]- 4971 Jan, [facility] [place] [facility] [address] [id number] [place] [address]- 4628 Dec, [facility] [place] [facility] [address] [id number] [place] [address]- 1515 Dec, [facility] [place] [facility] [address] [id number] [place] [address]- 7756 Dec, [facility] [place] [facility] [address] [id number] [place] [address]- 8483 Dec, [facility] [place] [facility] [address] [id number] [place] [address]- 2627 Dec, [facility] [place] [facility] [address] [id number] [place] [address]- 7530 Dec, [facility] [place] [facility] [address] [facility] [id number] [place] [address]- 2639 Dec, [facility] [place] [facility] [address] [id number] [place] [address]- 7619 Dec, [facility] [place] [facility] [address] [facility] [id number] [place] [address]- 0898 Nov, [facility] [place] [facility] [address] [facility] [id number] [place] [address]- 9904 Nov, [facility] [place] [facility] [address] [facility] [id number] [place] [address]- 8380 Nov, [facility] [place] [facility] [address] [id number], [place] [address]- 6753 Nov, [facility] [place] [facility] [address] [id number] [place] [address]- 2353 Nov, [facility] [place] [facility] [address] [facility] [id number] [place] [address]- 1862 Nov, [facility] [place] [facility] [address] [facility] [id number], [place] [address]- 1432 Oct, [facility] [place] [facility] [address] [id number] [place] [address]- 5720 Oct, [facility] [place] [facility] [address] [id number] [place] [address]- 2036 Oct, [facility] [place] [facility] [address] [id number] [place] [address]- 8926 Oct, [facility] [place] [facility] [address] [id number] [place] [address]- 9146 Oct, [facility] [place] [facility] [address] [id number] [place] [address]- 3988 Sep, [facility] [place] [facility] [address] [id number] [place] [address]- 0731 Sep, [facility] [place] [facility] [address] [id number] [place] [address]- 5056 Sep, [facility] [place] [facility] [address] [id number] [place] [address]- 9586 Sep, [facility] [place] [facility] [address] [id number] [place] [address]- 0840 Aug, [facility] [place] [facility] [address] [id number] [place] [address]- 8273 Aug, [facility] [place] [facility] [address] [id number] [place] [address]- 9102 Aug, [facility] [place] [facility] [address] [id number] [place] [address]- 1122 Aug, [facility] [place] [facility] [address] [id number] [place] [address]- 0259 Aug, [facility] [place] [facility] [address] [id number] [place] [address]- 2182 Aug, [facility] [place] [facility] [address] [id number] [place] [address]- 6033 Aug, [facility] [place] [facility] [address] [id number] [place] [address]- 8876 Jul, [facility] [address] [id number] [place] [address]- 6253 Jul, [facility] [place] [facility] [address] [id number] [place] [address]- 1476 June, [facility] [place] [facility] [address] [id number] [place] [address]- 9260 June, [facility] [place] [facility] [address] [id number] [place] [address]- 9050 June, [facility] [place] [facility] [address] [id number] [place] [address]- 5340 June, [facility] [place] [facility] [address] [id number] [place] [address]- 8119 May, [facility] [place] [facility] [address] [id number] [place] [address]- 2486 May, [facility] [place] [facility] [address] [id number] [place] [address]- 0421 Apr, [facility] [place] [facility] [address] [id number] [place] [address]- 4535 Mar, [facility] [place] [facility] [address] [id number] [place] [address]- 4352 Mar, [facility] [place] [facility] [address] [id number] [place] [address]- 8725 Mar, [facility] [place] [facility] [address] [id number] [place] [address]- 3766 Feb, [facility] [place] [facility] [address] [id number] [place] [address]- 7519 Feb, [facility] [place] [facility] [address] [id number] [place] [address]- 9494 Feb, [facility] [place] [facility] [address] [id number] [place] [address]- 6014 Dec, [facility] [place] [facility] [address] [id number] [place] [address]- 0290 17 Dec, 2010 [facility] [place] [facility] [address] [id number] [place] [address]- 4558 17 Dec, 2010 [facility] [place] [facility] [address] [id number] [place] [address]- 9826 24 Nov, 2010 [facility] [place] [facility] [address] [id number] [place] [address]- 2940 Nov, [facility] [place] [facility] [address] [id number] [place] [address]- 3350 Nov, [facility] [place] [facility] [address] [id number] [place] [address]- 4914 Nov, [facility] [place] [facility] [address] [id number] [place] [address]- 4165 Nov, [facility] [place] [facility] [address] [id number] [place] [address]- 0823 Nov, [facility] [place] [facility] [address] [id number] [place] [address]- 8893 14 Jan, 2010 [facility] [place] [facility] [address] [id number] [place] [address]- 3282 14 Jan, 2010 [facility] [place] [facility] [address] [id number] [place] [address]- 3041 Dec, [facility] [place] [facility] [address] [id number] [place] [address]- 0436 Dec, [facility] [place] [facility] [address] [id number] [place] [address]- 4954 Nov, [facility] [place] [facility] [address] [id number] [place] [address]- 7269 Mar, [facility] [place] [facility] [address] [id number] [place] [address]- 2546 Dec, [facility] [place] [facility] [address] [id number] [place] [address]- 1806 Dec, [facility] [address] [facility] [id number] [place] [address]- 2546 Nov, [facility] [address] [facility] [id number] [place] [address]- 2546 Mar, IMMUNIZATIONS No Known Immunizations SOCIAL HISTORY Never Assessed REASON FOR VISIT Schedule eye exam PLAN OF CARE VITAL SIGNS MEDICATIONS Unknown Medications RESULTS No Results PROCEDURES No Known procedures INSTRUCTIONS MEDICATIONS ADMINISTERED No Known Medications MEDICAL (GENERAL) HISTORY Type Description Date Medical History chronic obstructive pulmonary disease (COPD) Medical History hypertension Medical History asthma Medical History hyperlipidemia Medical History Ckkkt-7-lsqojkkxcvr deficiency Medical History anemia -resolved Surgical History tubal ligation 1994 Surgical History lung drained prior to tubal 1994 Hospitalization History surgeries Hospitalization History pneumonia 05/07 Hospitalization History pneumonia 07/07
[2018-05-27 11:11] LABS: PROTHROMBIN TIME PATIENT 13.5 SEC (12.2-14.7)
--- NOTE | 2018-05-27 11:11 | Diagnostic Imaging Report ---
Indication: Hypoxia Frontal chest obtained at 1101 hrs am, and compared to 03/20/2018. Heart and mediastinal silhouette are normal in appearance. Port-A-Cath is unchanged. There is some linear scarring in the left midlung. There is some mild infiltrate versus atelectasis in the right base. There is no pneumothorax or gross pleural fluid. There is chronic blunting of the left costophrenic angle. IMPRESSION: Unchanged linear scarring in left midlung. There is some infiltrate versus atelectasis in the right lung base which is increased or new compared to the previous study. There appears to be chronic blunting of the left costophrenic angle. Dictated by: Dictated on workstation # [id number]
--- OUTSIDE RECORDS SUMMARY | 2018-05-27 11:15 | XMS REPORT | Continuity of Care Document ---
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 TREVIZO STEVEDORING SUPERINTENDENT Ot 273.4 05/02/2015 REMY TREVIZO STEVEDORING SUPERINTENDENT Ot 280.9 05/02/2015 REMY TREVIZO STEVEDORING SUPERINTENDENT Ot 401.9 05/02/2015 REMY TREVIZO STEVEDORING SUPERINTENDENT Ot 496 05/02/2015 TREVIZOREMY Beasley STEVEDORING SUPERINTENDENT Ot 585.3 05/02/2015 REMY TREVIZO STEVEDORING SUPERINTENDENT Ot V58.69 05/11/2015 ERNESTO CAMPBELL N Ot D50.9 06/05/2015 ERNESTO CAMPBELL N Ot D50.9 06/07/2015 Ot 285.9 06/07/2015 Ot 621.2 06/07/2015 Ot 626.2 06/07/2015 Ot 793.82 06/07/2015 Ot V76.12 06/07/2015 Ot 793.89 06/07/2015 Ot 793.11 06/07/2015 Ot 492.8 06/07/2015 REMY TREVIZO STEVEDORING SUPERINTENDENT Ot 273.4 06/07/2015 REMY TREVIZO STEVEDORING SUPERINTENDENT Ot 280.9 06/07/2015 REMY TREVIZO STEVEDORING SUPERINTENDENT Ot 496 06/07/2015 REMY TREVIZO STEVEDORING SUPERINTENDENT Ot 626.2 06/07/2015 REMY TREVIZO S STEVEDORING SUPERINTENDENT Ot V58.69 06/07/2015 LOIS SANDERS DO Ot 278.01 06/07/2015 LOIS SANDERS DO Ot 493.20 06/07/2015 TREVIZOREMY Beasley S STEVEDORING SUPERINTENDENT Ot 273.4 06/07/2015 TREVIZOREMY Beasley S STEVEDORING SUPERINTENDENT Ot 280.9 06/07/2015 REMY TREVIZO S STEVEDORING SUPERINTENDENT Ot 496 06/07/2015 TREVIZOREMY Beasley S STEVEDORING SUPERINTENDENT Ot 626.2 06/07/2015 REMY TREVIZO S STEVEDORING SUPERINTENDENT Ot V58.69 06/07/2015 REMY TREVIZO S STEVEDORING SUPERINTENDENT Ot 273.4 06/07/2015 REMY TREVIZO S STEVEDORING SUPERINTENDENT Ot 280.9 06/07/2015 REMY TREVIZO S STEVEDORING SUPERINTENDENT Ot 496 06/07/2015 REMY TREVIZO S STEVEDORING SUPERINTENDENT Ot 626.2 06/07/2015 REYM TREVIZO STEVEDORING SUPERINTENDENT Ot V58.69 06/07/2015 LOIS SANDERS DO Ot 273.4 06/07/2015 LOIS SANDERS DO Ot 518.83 06/07/2015 LOIS SANDERS DO Ot 786.05 06/07/2015 ANKITA TAM DO Ot V76.12 06/07/2015 ADRIANERNESTO N Ot 273.4 06/07/2015 ADRIANERNESTO WOODS N Ot 280.9 06/07/2015 ADRIANERNESTO WOODS N Ot 496 06/07/2015 ADRIAN ERNESTO N Ot 626.2 06/07/2015 ADRIANMELVIRI N Ot V58.69 06/07/2015 Ot 273.4 06/07/2015 Ot 280.8 06/07/2015 Ot 496 06/07/2015 Ot 585.3 06/07/2015 Ot 626.2 06/07/2015 Ot V58.69 06/07/2015 Ot 273.4 06/07/2015 Ot 280.9 06/07/2015 Ot 401.9 06/07/2015 Ot 496 06/07/2015 AYDEN GUZMAN, ARANZA F Ot 273.4 06/07/2015 REMY TREVIZO STEVEDORING SUPERINTENDENT Ot 273.4 06/07/2015 REMY TREVIZO STEVEDORING SUPERINTENDENT Ot 280.9 06/07/2015 REMY TREVIZO STEVEDORING SUPERINTENDENT Ot 401.9 06/07/2015 REMY TREVIZO STEVEDORING SUPERINTENDENT Ot 496 06/07/2015 REMY TREVIZO STEVEDORING SUPERINTENDENT Ot 585.3 06/07/2015 REMY TREVIZO STEVEDORING SUPERINTENDENT Ot V58.69 06/07/2015 ADRIAN ERNESTO N Ot D50.9 06/07/2015 ADRIANERNESTO N Ot D50.9 06/07/2015 TAM DO, ANKITA C Ot Z12.31 06/07/2015 TAM DO, ANKITA C Ot Z12.31 06/08/2015 TAM DO, ANKITA C Ot Z12.31 ENCNTR SCREEN MAMMOGRAM FOR MALIGNANT NE 06/08/2015 TAM DO, ANKITA C Ot N91.2 AMENORRHEA, UNSPECIFIED 06/15/2015 TAM DO, ANKITA C Ot N91.2 AMENORRHEA, UNSPECIFIED 06/19/2015 TAM DO, ANKITA C Ot Z12.31 ENCNTR SCREEN MAMMOGRAM FOR MALIGNANT NE 08/05/2015 ERNESTO CAMPBELL Ot D50.9 IRON DEFICIENCY ANEMIA, UNSPECIFIED 08/08/2015 REMY TREVIZO STEVEDORING SUPERINTENDENT Ot D50.9 IRON DEFICIENCY ANEMIA, UNSPECIFIED 08/15/2015 REMY TREVIZO STEVEDORING SUPERINTENDENT Ot D50.9 IRON DEFICIENCY ANEMIA, UNSPECIFIED 08/15/2015 REMY TREVIZO STEVEDORING SUPERINTENDENT Ot E88.01 TAZIX-4-USWPOKPHWXF DEFICIENCY 08/15/2015 REMY TREVIZO STEVEDORING SUPERINTENDENT Ot I12.9 HYPERTENSIVE CHRONIC KIDNEY DISEASE W ST 08/15/2015 REMY TREVIZO STEVEDORING SUPERINTENDENT Ot J44.9 CHRONIC OBSTRUCTIVE PULMONARY DISEASE, U 08/15/2015 REMY TREVIZO STEVEDORING SUPERINTENDENT Ot N18.9 CHRONIC KIDNEY DISEASE, UNSPECIFIED 08/15/2015 REMY TREVIZO STEVEDORING SUPERINTENDENT Ot Z79.899 OTHER RADIATION MONITOR (CURRENT) DRUG THERAPY 08/17/2015 REMY TREVIZO STEVEDORING SUPERINTENDENT Ot D50.9 IRON DEFICIENCY ANEMIA, UNSPECIFIED 08/30/2015 REMY TREVIZO Ot D50.9 IRON DEFICIENCY ANEMIA, UNSPECIFIED 08/30/2015 REMY TREVIZO Ot E88.01 VGBMM-0-SEHSDYPHYUA DEFICIENCY 08/30/2015 REMY TREVIZO Ot I12.9 HYPERTENSIVE CHRONIC KIDNEY DISEASE W ST 08/30/2015 REMY TREVIZO Ot J44.9 CHRONIC OBSTRUCTIVE PULMONARY DISEASE, U 08/30/2015 REMY TREVIZO Ot N18.9 CHRONIC KIDNEY DISEASE, UNSPECIFIED 08/30/2015 REMY TREVIZO Ot Z79.899 OTHER RADIATION MONITOR (CURRENT) DRUG THERAPY 01/28/2016 DANIEL BRITTON DO Ot F41.9 ANXIETY DISORDER, UNSPECIFIED 01/28/2016 DANIEL BRITTON DO Ot I10 ESSENTIAL (PRIMARY) HYPERTENSION 01/28/2016 DANIEL BRITTON DO, Ot J44.9 CHRONIC OBSTRUCTIVE PULMONARY DISEASE, U 01/28/2016 DANIEL BRITTON DO Ot R00.2 PALPITATIONS 01/28/2016 DANIEL BRITTON DO Ot R06.02 SHORTNESS OF BREATH 01/28/2016 DANIEL BRITTON DO Ot Z79.899 OTHER RADIATION MONITOR (CURRENT) DRUG THERAPY 01/28/2016 DANIEL BRITTON DO Ot Z87.891 PERSONAL HISTORY OF NICOTINE DEPENDENCE 01/29/2016 Ot 793.82 INCONCLUSIVE MAMMOGRAM 01/29/2016 Ot V76.12 OTH SCREEN MAMMO-MALIGN NEOPLASM OF [place] 01/29/2016 Ot 793.89 OTH (ABN) FINDINGS ON RADIOLOGICAL EXAMI 01/29/2016 Ot 793.11 SOLITARY PULMONARY NODULE 01/29/2016 Ot 492.8 EMPHYSEMA NEC 01/29/2016 REMY TREVIZOP Ot 273.4 OAXWS-8-EGQODBOHNIP DEFICIENCY 01/29/2016 REMY TREVIZO Ot 280.9 IRON DEFIC ANEMIA NOS 01/29/2016 REMY TREVIZO Ot 496 CHR AIRWAY OBSTRUCT NEC 01/29/2016 REMY TREVIZOP Ot 626.2 EXCESSIVE MENSTRUATION 01/29/2016 REMY TREVIZO Ot V58.69 OTH MED,LT,CURRENT USE 01/29/2016 LOIS SANDERS DO Ot 278.01 MORBID OBESITY 01/29/2016 LOIS SANDERS DO Ot 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, NOS 01/29/2016 REMY TREVIZO STEVEDORING SUPERINTENDENT Ot 273.4 ZSBSD-2-ICGINYQAUIY DEFICIENCY 01/29/2016 REMY TREVIZO STEVEDORING SUPERINTENDENT Ot 280.9 IRON DEFIC ANEMIA NOS 01/29/2016 REMY TREVIZO STEVEDORING SUPERINTENDENT Ot 496 CHR AIRWAY OBSTRUCT NEC 01/29/2016 REMY TREVIZO STEVEDORING SUPERINTENDENT Ot 626.2 EXCESSIVE MENSTRUATION 01/29/2016 REMY TREVIZO STEVEDORING SUPERINTENDENT Ot V58.69 OTH MED,LT,CURRENT USE 01/29/2016 REMY TREVIZO STEVEDORING SUPERINTENDENT Ot 273.4 UPQXW-9-MPQFEOYYOAC DEFICIENCY 01/29/2016 REMY TREVIZO STEVEDORING SUPERINTENDENT Ot 280.9 IRON DEFIC ANEMIA NOS 01/29/2016 REMY TREVIZO STEVEDORING SUPERINTENDENT Ot 496 CHR AIRWAY OBSTRUCT NEC 01/29/2016 REMY TREVIZO STEVEDORING SUPERINTENDENT Ot 626.2 EXCESSIVE MENSTRUATION 01/29/2016 REMY TREVIZO STEVEDORING SUPERINTENDENT Ot V58.69 OTH MED,LT,CURRENT USE 01/29/2016 LOIS SANDERS DO Ot 273.4 ILPKC-2-DMGKFRCXCGJ DEFICIENCY 01/29/2016 LOIS SANDERS DO Ot 518.83 CHRONIC RESPIRATORY FAILURE 01/29/2016 LOIS SANDERS DO Ot 786.05 SHORTNESS OF BREATH 01/29/2016 ANKITA TAM DO Ot V76.12 OTH SCREEN MAMMO-MALIGN NEOPLASM OF [place] 01/29/2016 ERNESTO CAMPBELL Ot 273.4 GAVQL-0-ZXFORZWORFT DEFICIENCY 01/29/2016 ERNESTO CAMPBELL Ot 280.9 IRON DEFIC ANEMIA NOS 01/29/2016 ERNESTO CAMPBELL Ot 496 CHR AIRWAY OBSTRUCT NEC 01/29/2016 ERNESTO CAMPBELL Ot 626.2 EXCESSIVE MENSTRUATION 01/29/2016 ERNESTO CAMPBELL Ot V58.69 OTH MED,LT,CURRENT USE 01/29/2016 Ot 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 01/29/2016 Ot 280.8 IRON DEFIC ANEMIA NEC 01/29/2016 Ot 496 CHR AIRWAY OBSTRUCT NEC 01/29/2016 Ot 585.3 CHRONIC KIDNEY DISEASE, STAGE III (MODER 01/29/2016 Ot 626.2 EXCESSIVE MENSTRUATION 01/29/2016 Ot V58.69 OTH MED,LT, CURRENT USE 01/29/2016 Ot 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 01/29/2016 Ot 280.9 IRON DEFIC ANEMIA NOS 01/29/2016 Ot 401.9 HYPERTENSION NOS 01/29/2016 Ot 496 CHR AIRWAY OBSTRUCT NEC 01/29/2016 ARANZA HENSLEY MD Ot 273.4 EDRGW-1-HSWYLLENPUU DEFICIENCY 01/29/2016 REMY TREVIZO STEVEDORING SUPERINTENDENT Ot 273.4 QFXWX-3-EHSDRTOUKJY DEFICIENCY 01/29/2016 REMY TREVIZO STEVEDORING SUPERINTENDENT Ot 280.9 IRON DEFIC ANEMIA NOS 01/29/2016 REMY TREVIZO STEVEDORING SUPERINTENDENT Ot 401.9 HYPERTENSION NOS 01/29/2016 REMY TREVIZOP Ot 496 CHR AIRWAY OBSTRUCT NEC 01/29/2016 REMY TREVIZOP Ot 585.3 CHRONIC KIDNEY DISEASE, STAGE III (MODER 01/29/2016 REMY TREVIZOP Ot V58.69 OTH MED,LT,CURRENT USE 01/29/2016 ERNESTO CAMPBELL Ot D50.9 IRON DEFICIENCY ANEMIA, UNSPECIFIED 01/29/2016 ANKITA TAM DO Ot Z12.31 ENCNTR SCREEN MAMMOGRAM FOR MALIGNANT NE 01/29/2016 ANKITA TAM DO Ot N91.2 AMENORRHEA, UNSPECIFIED 01/29/2016 REMY TREVIZOP Ot D50.9 IRON DEFICIENCY ANEMIA, UNSPECIFIED 01/29/2016 REMY TREVIZOP Ot E88.01 GYLRI-8-KWYLAWCOPYY DEFICIENCY 01/29/2016 REMY TREVIZOP Ot I12.9 HYPERTENSIVE CHRONIC KIDNEY DISEASE W ST 01/29/2016 REMY TREVIZOP Ot J44.9 CHRONIC OBSTRUCTIVE PULMONARY DISEASE, U 01/29/2016 REMY TREVIZOP Ot N18.9 CHRONIC KIDNEY DISEASE, UNSPECIFIED 01/29/2016 REMY TREVIZOP Ot Z79.899 OTHER JAIL (CURRENT) DRUG THERAPY 01/29/2016 REMY TREVIZOP Ot D50.9 IRON DEFICIENCY ANEMIA, UNSPECIFIED 01/29/2016 MARIO ANDERSON APRN Ot D50.9 IRON DEFICIENCY ANEMIA, UNSPECIFIED 01/29/2016 DANIEL BRITTON DO Ot F41.9 ANXIETY DISORDER, UNSPECIFIED 01/29/2016 DANIEL BRITTON DO Ot I10 ESSENTIAL (PRIMARY) HYPERTENSION 01/29/2016 DANIEL BRITTON DO Ot J44.9 CHRONIC OBSTRUCTIVE PULMONARY DISEASE, U 01/29/2016 DANIEL BRITTON DO Ot R00.2 PALPITATIONS 01/29/2016 DANIEL BRITTON DO Ot R06.02 SHORTNESS OF BREATH 01/29/2016 DANIEL BRITTON DO Ot Z79.899 OTHER RADIATION MONITOR (CURRENT) DRUG THERAPY 01/29/2016 DANIEL BRITTON DO Ot Z87.891 PERSONAL HISTORY OF NICOTINE DEPENDENCE 01/30/2016 Ot 793.82 INCONCLUSIVE MAMMOGRAM 01/30/2016 Ot V76.12 OTH SCREEN MAMMO-MALIGN NEOPLASM OF [place] 01/30/2016 Ot 793.89 OTH (ABN) FINDINGS ON RADIOLOGICAL EXAMI 01/30/2016 Ot 793.11 SOLITARY PULMONARY NODULE 01/30/2016 Ot 492.8 EMPHYSEMA NEC 01/30/2016 REMY TREVIZO STEVEDORING SUPERINTENDENT Ot 273.4 CBTOW-1-URFYHHPZUXV DEFICIENCY 01/30/2016 REMY TREVIZO STEVEDORING SUPERINTENDENT Ot 280.9 IRON DEFIC ANEMIA NOS 01/30/2016 REMY TREVIZO STEVEDORING SUPERINTENDENT Ot 496 CHR AIRWAY OBSTRUCT NEC 01/30/2016 REMY TREVIZO STEVEDORING SUPERINTENDENT Ot 626.2 EXCESSIVE MENSTRUATION 01/30/2016 REMY TREVIZOP Ot V58.69 OTH MED,LT,CURRENT USE 01/30/2016 LOIS SANDERS DO Ot 278.01 MORBID OBESITY 01/30/2016 LOIS SANDERS DO Ot 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, NOS 01/30/2016 REMY TREVIZOP Ot 273.4 BRGCR-7-USAAYVTGWQK DEFICIENCY 01/30/2016 REMY TREVIZO STEVEDORING SUPERINTENDENT Ot 280.9 IRON DEFIC ANEMIA NOS 01/30/2016 REMY TREVIZO STEVEDORING SUPERINTENDENT Ot 496 CHR AIRWAY OBSTRUCT NEC 01/30/2016 REMY TREVIZO STEVEDORING SUPERINTENDENT Ot 626.2 EXCESSIVE MENSTRUATION 01/30/2016 REMY TREVIZO STEVEDORING SUPERINTENDENT Ot V58.69 OTH MED,LT,CURRENT USE 01/30/2016 REMY TREVIZO STEVEDORING SUPERINTENDENT Ot 273.4 RKAIM-9-LELFWYSYHEG DEFICIENCY 01/30/2016 REMY TREVIZO STEVEDORING SUPERINTENDENT Ot 280.9 IRON DEFIC ANEMIA NOS 01/30/2016 REMY TREVIZO STEVEDORING SUPERINTENDENT Ot 496 CHR AIRWAY OBSTRUCT NEC 01/30/2016 REMY TREVIZO STEVEDORING SUPERINTENDENT Ot 626.2 EXCESSIVE MENSTRUATION 01/30/2016 REMY TREVIZO STEVEDORING SUPERINTENDENT Ot V58.69 OTH MED,LT,CURRENT USE 01/30/2016 LOIS SANDERS DO Ot 273.4 JDKJA-7-MLIMEWBRXGZ DEFICIENCY 01/30/2016 LOIS SANDERS DO Ot 518.83 CHRONIC RESPIRATORY FAILURE 01/30/2016 LOIS SANDERS DO Ot 786.05 SHORTNESS OF BREATH 01/30/2016 ANKITA TAM DO Ot V76.12 OTH SCREEN MAMMO-MALIGN NEOPLASM OF [place] 01/30/2016 ERNESTO CAMPBELL N Ot 273.4 WAQHM-4-ICYIMALPYPO DEFICIENCY 01/30/2016 ERNESTO CAMPBELL Ot 280.9 IRON DEFIC ANEMIA NOS 01/30/2016 ERNESTO CAMPBELL N Ot 496 CHR AIRWAY OBSTRUCT NEC 01/30/2016 ERNESTO CAMPBELL N Ot 626.2 EXCESSIVE MENSTRUATION 01/30/2016 ERNESTO CAMPBELL Ot V58.69 OTH MED,LT,CURRENT USE 01/30/2016 Ot 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 01/30/2016 Ot 280.8 IRON DEFIC ANEMIA NEC 01/30/2016 Ot 496 CHR AIRWAY OBSTRUCT NEC 01/30/2016 Ot 585.3 CHRONIC KIDNEY DISEASE, STAGE III (MODER 01/30/2016 Ot 626.2 EXCESSIVE MENSTRUATION 01/30/2016 Ot V58.69 OTH MED,LT, CURRENT USE 01/30/2016 Ot 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 01/30/2016 Ot 280.9 IRON DEFIC ANEMIA NOS 01/30/2016 Ot 401.9 HYPERTENSION NOS 01/30/2016 Ot 496 CHR AIRWAY OBSTRUCT NEC 01/30/2016 AYDEN GUZMAN, ARNAZA Sawyer Ot 273.4 PNBSS-2-FOSIWZDVMAD DEFICIENCY 01/30/2016 REMY TREVIZO STEVEDORING SUPERINTENDENT Ot 273.4 MJOJB-3-TXULMSVJMJV DEFICIENCY 01/30/2016 REMY TREVIZO STEVEDORING SUPERINTENDENT Ot 280.9 IRON DEFIC ANEMIA NOS 01/30/2016 REMY TREVIZO STEVEDORING SUPERINTENDENT Ot 401.9 HYPERTENSION NOS 01/30/2016 REMY TREVIZO STEVEDORING SUPERINTENDENT Ot 496 CHR AIRWAY OBSTRUCT NEC 01/30/2016 REMY TREVIZO STEVEDORING SUPERINTENDENT Ot 585.3 CHRONIC KIDNEY DISEASE, STAGE III (MODER 01/30/2016 REMY TREVIZOP Ot V58.69 OTH MED,LT,CURRENT USE 01/30/2016 ERNESTO CAMPBELL Ot D50.9 IRON DEFICIENCY ANEMIA, UNSPECIFIED 01/30/2016 ANKITA TAM DO Ot Z12.31 ENCNTR SCREEN MAMMOGRAM FOR MALIGNANT NE 01/30/2016 ANKITA TAM DO Ot N91.2 AMENORRHEA, UNSPECIFIED 01/30/2016 REMY TREVIZO STEVEDORING SUPERINTENDENT Ot D50.9 IRON DEFICIENCY ANEMIA, UNSPECIFIED 01/30/2016 REMY TREVIZO STEVEDORING SUPERINTENDENT Ot E88.01 NOHAF-9-YTIJBBTSTJH DEFICIENCY 01/30/2016 REMY TREVIZOP Ot I12.9 HYPERTENSIVE CHRONIC KIDNEY DISEASE W ST 01/30/2016 REMY TREVIZO STEVEDORING SUPERINTENDENT Ot J44.9 CHRONIC OBSTRUCTIVE PULMONARY DISEASE, U 01/30/2016 REMY TREVIZO STEVEDORING SUPERINTENDENT Ot N18.9 CHRONIC KIDNEY DISEASE, UNSPECIFIED 01/30/2016 REMY TREVIZO STEVEDORING SUPERINTENDENT Ot Z79.899 OTHER RADIATION MONITOR (CURRENT) DRUG THERAPY 01/30/2016 REMY TREVIZO STEVEDORING SUPERINTENDENT Ot D50.9 IRON DEFICIENCY ANEMIA, UNSPECIFIED 01/30/2016 MARIO ANDERSON ORDINARY SEAMAN Ot D50.9 IRON DEFICIENCY ANEMIA, UNSPECIFIED 02/28/2016 MARIO ANDERSON ORDINARY SEAMAN Ot D50.9 IRON DEFICIENCY ANEMIA, UNSPECIFIED 03/06/2016 MARIO ANDERSON ORDINARY SEAMAN Ot D50.9 IRON DEFICIENCY ANEMIA, UNSPECIFIED 03/06/2016 MARIO ANDERSON ORDINARY SEAMAN Ot E88.01 LSZUN-2-MYKQCCLUSDN DEFICIENCY 03/06/2016 MARIO ANDERSON ORDINARY SEAMAN Ot I12.9 HYPERTENSIVE CHRONIC KIDNEY DISEASE W ST 03/06/2016 MARIO ANDERSON ORDINARY SEAMAN Ot J44.9 CHRONIC OBSTRUCTIVE PULMONARY DISEASE, U 03/06/2016 MARIO ANDERSON ORDINARY SEAMAN Ot N18.9 CHRONIC KIDNEY DISEASE, UNSPECIFIED 03/06/2016 MARIO ANDERSON ORDINARY SEAMAN Ot Z79.899 OTHER JAIL (CURRENT) DRUG THERAPY 03/17/2016 MARIO ANDERSON ORDINARY SEAMAN Ot D50.9 IRON DEFICIENCY ANEMIA, UNSPECIFIED 03/17/2016 MARIO ANDERSON ORDINARY SEAMAN Ot E88.01 WSXYC-6-YTTTAPPWVAS DEFICIENCY 03/17/2016 MARIO ANDERSON ORDINARY SEAMAN Ot I12.9 HYPERTENSIVE CHRONIC KIDNEY DISEASE W ST 03/17/2016 MARIO ANDERSON ORDINARY SEAMAN Ot J44.9 CHRONIC OBSTRUCTIVE PULMONARY DISEASE, U 03/17/2016 MARIO ANDERSON ORDINARY SEAMAN Ot N18.9 CHRONIC KIDNEY DISEASE, UNSPECIFIED 03/17/2016 MARIO ANDERSON ORDINARY SEAMAN Ot Z79.899 OTHER RADIATION MONITOR (CURRENT) DRUG THERAPY 03/17/2016 MARIO ANDERSON ORDINARY SEAMAN Ot D50.9 IRON DEFICIENCY ANEMIA, UNSPECIFIED 03/17/2016 MARIO ANDERSON ORDINARY SEAMAN Ot E88.01 ICVBA-0-HVLFLNSEDXV DEFICIENCY 03/17/2016 MARIO ANDERSON ORDINARY SEAMAN Ot I12.9 HYPERTENSIVE CHRONIC KIDNEY DISEASE W ST 03/17/2016 MARIO ANDERSON ORDINARY SEAMAN Ot J44.9 CHRONIC OBSTRUCTIVE PULMONARY DISEASE, U 03/17/2016 MARIO ANDERSON ORDINARY SEAMAN Ot N18.9 CHRONIC KIDNEY DISEASE, UNSPECIFIED 03/17/2016 MARIO ANDERSON ORDINARY SEAMAN Ot Z79.899 OTHER JAIL (CURRENT) DRUG THERAPY 03/17/2016 MARIO ANDERSON ORDINARY SEAMAN Ot D50.9 IRON DEFICIENCY ANEMIA, UNSPECIFIED 03/17/2016 MARIO ANDERSON ORDINARY SEAMAN Ot E88.01 ZWEJX-9-ECCETSIFHUP DEFICIENCY 03/17/2016 MARIO ANDERSON ORDINARY SEAMAN Ot I12.9 HYPERTENSIVE CHRONIC KIDNEY DISEASE W ST 03/17/2016 MARIO ANDERSON ORDINARY SEAMAN Ot J44.9 CHRONIC OBSTRUCTIVE PULMONARY DISEASE, U 03/17/2016 MARIO ANDERSON ORDINARY SEAMAN Ot N18.9 CHRONIC KIDNEY DISEASE, UNSPECIFIED 03/17/2016 MARIO ANDERSON ORDINARY SEAMAN Ot Z79.899 OTHER JAIL (CURRENT) DRUG THERAPY 03/17/2016 MARIO ANDERSON ORDINARY SEAMAN Ot D50.9 IRON DEFICIENCY ANEMIA, UNSPECIFIED 03/17/2016 MARIO ANDERSON APRN Ot E88.01 ZMIHD-8-VYNIRKSPOHQ DEFICIENCY 03/17/2016 MARIO ANDERSON ORDINARY SEAMAN Ot I12.9 HYPERTENSIVE CHRONIC KIDNEY DISEASE W ST 03/17/2016 MARIO ANDERSON ORDINARY SEAMAN Ot J44.9 CHRONIC OBSTRUCTIVE PULMONARY DISEASE, U 03/17/2016 MARIO ANDERSON ORDINARY SEAMAN Ot N18.9 CHRONIC KIDNEY DISEASE, UNSPECIFIED 03/17/2016 MARIO ANDERSON ORDINARY SEAMAN Ot Z79.899 OTHER JAIL (CURRENT) DRUG THERAPY 04/08/2016 MARIO ANDERSON ORDINARY SEAMAN Ot D50.9 IRON DEFICIENCY ANEMIA, UNSPECIFIED 04/08/2016 MARIO ANDERSON APRN Ot E88.01 YYCHR-7-XAMGAYQVVFQ DEFICIENCY 04/08/2016 MARIO ANDERSON ORDINARY SEAMAN Ot I12.9 HYPERTENSIVE CHRONIC KIDNEY DISEASE W ST 04/08/2016 MARIO ANDERSON ORDINARY SEAMAN Ot J44.9 CHRONIC OBSTRUCTIVE PULMONARY DISEASE, U 04/08/2016 MARIO ANDERSON ORDINARY SEAMAN Ot N18.9 CHRONIC KIDNEY DISEASE, UNSPECIFIED 04/08/2016 MARIO ANDERSON ORDINARY SEAMAN Ot Z79.899 OTHER RADIATION MONITOR (CURRENT) DRUG THERAPY 04/30/2016 LOIS SANDERS DO Ot R09.02 HYPOXEMIA 05/01/2016 LOIS SANDERS DO Ot E88.01 VSJCW-6-ZCRAUZRFSYN DEFICIENCY 05/01/2016 LOIS SANDERS DO Ot F41.9 ANXIETY DISORDER, UNSPECIFIED 05/01/2016 LOIS SANDERS DO Ot J45.909 UNSPECIFIED ASTHMA, UNCOMPLICATED 05/01/2016 LOIS SANDERS DO Ot R06.02 SHORTNESS OF BREATH 05/01/2016 LOIS SANDERS DO Ot R09.02 HYPOXEMIA 05/02/2016 LOIS SANDERS DO Ot E88.01 NTGFJ-0-QHBJMIMZOKM DEFICIENCY 05/02/2016 LOIS SANDERS DO, Ot F41.9 ANXIETY DISORDER, UNSPECIFIED 05/02/2016 TOMMYLOIS WELCH DO Ot J45.909 UNSPECIFIED ASTHMA, UNCOMPLICATED 05/02/2016 TOMMY LOIS OCAMPO Ot R06.02 SHORTNESS OF BREATH 05/02/2016 TOMMY OCAMPOLOIS Ot R09.02 HYPOXEMIA 05/05/2016 TOMMY OCAMPO LOIS Mejias Ot R09.02 HYPOXEMIA 05/09/2016 TOMMY OCAMPO LOIS Randell Ot R09.02 HYPOXEMIA 05/26/2016 TOMMY LOIS Mejias Ot E88.01 HRCWJ-4-IYKROKJWIJP DEFICIENCY 05/26/2016 TOMMY LOIS Randell Ot F41.9 ANXIETY DISORDER, UNSPECIFIED 05/26/2016 TOMMY OCAMPO LOIS Randell Ot J45.909 UNSPECIFIED ASTHMA, UNCOMPLICATED 05/26/2016 TOMMY OCAMPO LOIS Mejias Ot R06.02 SHORTNESS OF BREATH 05/26/2016 TOMMY OCAMPO LOIS Mejias Ot R09.02 HYPOXEMIA 05/27/2016 MARIO ANDERSON APRN Ot D50.9 IRON DEFICIENCY ANEMIA, UNSPECIFIED 05/27/2016 MARIO ANDERSON APRN Ot E88.01 VTUHS-4-VRBWTAFWSXM DEFICIENCY 05/27/2016 MARIO ANDERSON APRN Ot I12.9 HYPERTENSIVE CHRONIC KIDNEY DISEASE W 05/27/2016 MARIO ANDERSON APRN Ot J44.9 CHRONIC OBSTRUCTIVE PULMONARY DISEASE, U 05/27/2016 MARIO ANDERSON APRN Ot N18.9 CHRONIC KIDNEY DISEASE, UNSPECIFIED 05/27/2016 MARIO ANDERSON APRN Ot Z79.899 OTHER JAIL (CURRENT) DRUG THERAPY 06/05/2016 MARIO ANDERSON APRN Ot D50.9 IRON DEFICIENCY ANEMIA, UNSPECIFIED 06/05/2016 MARIO ANDERSON APRN Ot E88.01 SFIMW-1-GVDKVHJFXEH DEFICIENCY 06/05/2016 MARIO ANDERSON APRN Ot I12.9 HYPERTENSIVE CHRONIC KIDNEY DISEASE W ST 06/05/2016 MARIO ANDERSON ORDINARY SEAMAN Ot J44.9 CHRONIC OBSTRUCTIVE PULMONARY DISEASE, U 06/05/2016 MARIO ANDERSON ORDINARY SEAMAN Ot N18.9 CHRONIC KIDNEY DISEASE, UNSPECIFIED 06/05/2016 MARIO ANDERSON ORDINARY SEAMAN Ot Z79.899 OTHER JAIL (CURRENT) DRUG THERAPY 06/05/2016 MARIO ANDERSON ORDINARY SEAMAN Ot D50.9 IRON DEFICIENCY ANEMIA, UNSPECIFIED 06/05/2016 MARIO ANDERSON ORDINARY SEAMAN Ot E88.01 CPMVR-4-NQPEPQTQDJT DEFICIENCY 06/05/2016 MARIO ANDERSON ORDINARY SEAMAN Ot I12.9 HYPERTENSIVE CHRONIC KIDNEY DISEASE W ST 06/05/2016 MARIO ANDERSON ORDINARY SEAMAN Ot J44.9 CHRONIC OBSTRUCTIVE PULMONARY DISEASE, U 06/05/2016 MARIO ANDERSON ORDINARY SEAMAN Ot N18.9 CHRONIC KIDNEY DISEASE, UNSPECIFIED 06/05/2016 MARIO ANDERSON ORDINARY SEAMAN Ot Z79.899 OTHER RADIATION MONITOR (CURRENT) DRUG THERAPY 06/06/2016 MARIO ANDERSON ORDINARY SEAMAN Ot D50.9 IRON DEFICIENCY ANEMIA, UNSPECIFIED 06/06/2016 MARIO ANDERSON ORDINARY SEAMAN Ot E88.01 YKFYI-9-SHBDIXQPFZL DEFICIENCY 06/06/2016 MARIO ANDERSON ORDINARY SEAMAN Ot I12.9 HYPERTENSIVE CHRONIC KIDNEY DISEASE W ST 06/06/2016 MARIO ANDERSON ORDINARY SEAMAN Ot J44.9 CHRONIC OBSTRUCTIVE PULMONARY DISEASE, U 06/06/2016 MARIO ANDERSON ORDINARY SEAMAN Ot N18.9 CHRONIC KIDNEY DISEASE, UNSPECIFIED 06/06/2016 MARIO ANDERSON ORDINARY SEAMAN Ot Z79.899 OTHER RADIATION MONITOR (CURRENT) DRUG THERAPY 07/04/2016 MARIO ANDERSON ORDINARY SEAMAN Ot D50.9 IRON DEFICIENCY ANEMIA, UNSPECIFIED 07/04/2016 MARIO ANDERSON ORDINARY SEAMAN Ot E88.01 MDUDX-4-VAVCKDAGYJU DEFICIENCY 07/04/2016 MARIO ANDERSON ORDINARY SEAMAN Ot I12.9 HYPERTENSIVE CHRONIC KIDNEY DISEASE W ST 07/04/2016 MARIO ANDERSON ORDINARY SEAMAN Ot J44.9 CHRONIC OBSTRUCTIVE PULMONARY DISEASE, U 07/04/2016 MARIO ANDERSON ORDINARY SEAMAN Ot N18.9 CHRONIC KIDNEY DISEASE, UNSPECIFIED 07/04/2016 MARIO ANDERSON ORDINARY SEAMAN Ot Z79.899 OTHER RADIATION MONITOR (CURRENT) DRUG THERAPY 08/05/2016 Ot 793.11 SOLITARY PULMONARY NODULE 08/05/2016 Ot 492.8 EMPHYSEMA NEC 08/05/2016 JANET TREVIZOCHRIS S STEVEDORING SUPERINTENDENT Ot 273.4 UMLSE-8-NFKHKODPRYC DEFICIENCY 08/05/2016 SANTHOSH REMY S STEVEDORING SUPERINTENDENT Ot 280.9 IRON DEFIC ANEMIA NOS 08/05/2016 SANTHOSH REMY S STEVEDORING SUPERINTENDENT Ot 496 CHR AIRWAY OBSTRUCT NEC 08/05/2016 SANTHOSH REMY S STEVEDORING SUPERINTENDENT Ot 626.2 EXCESSIVE MENSTRUATION 08/05/2016 SANTHOSH REMY Beasley STEVEDORING SUPERINTENDENT Ot V58.69 OTH MED,LT,CURRENT USE 08/05/2016 LOIS SANDERS DO Ot 278.01 MORBID OBESITY 08/05/2016 LOIS SANDERS DO Ot 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, NOS 08/05/2016 SANTHOSH REMY S STEVEDORING SUPERINTENDENT Ot 273.4 JELJP-9-UNNCDSCDIIJ DEFICIENCY 08/05/2016 SANTHOSH REMY S STEVEDORING SUPERINTENDENT Ot 280.9 IRON DEFIC ANEMIA NOS 08/05/2016 SANTHOSH REMY S STEVEDORING SUPERINTENDENT Ot 496 CHR AIRWAY OBSTRUCT NEC 08/05/2016 SANTHOSH REMY S STEVEDORING SUPERINTENDENT Ot 626.2 EXCESSIVE MENSTRUATION 08/05/2016 TREVIZO REMY Beasley STEVEDORING SUPERINTENDENT Ot V58.69 OTH MED,LT,CURRENT USE 08/05/2016 SANTHOSH REMY S STEVEDORING SUPERINTENDENT Ot 273.4 FCNSI-3-LKRSGHYSODL DEFICIENCY 08/05/2016 SANTHOSH REMY S STEVEDORING SUPERINTENDENT Ot 280.9 IRON DEFIC ANEMIA NOS 08/05/2016 JANET TREVIZOCHRIS S STEVEDORING SUPERINTENDENT Ot 496 CHR AIRWAY OBSTRUCT NEC 08/05/2016 SANTHOSH REMY S STEVEDORING SUPERINTENDENT Ot 626.2 EXCESSIVE MENSTRUATION 08/05/2016 REMY TREVIZO S STEVEDORING SUPERINTENDENT Ot V58.69 OTH MED,LT,CURRENT USE 08/05/2016 LOIS SANDERS DO Ot 273.4 VZMLV-2-MTGTOHUNKMP DEFICIENCY 08/05/2016 LOIS SANDERS DO Ot 518.83 CHRONIC RESPIRATORY FAILURE 08/05/2016 LOIS SANDERS DO Ot 786.05 SHORTNESS OF BREATH 08/05/2016 ANKITA TAM DO Ot V76.12 OTH SCREEN MAMMO-MALIGN NEOPLASM OF [place] 08/05/2016 ERNESTO CAMPBELL Ot 273.4 XXBHK-6-HMAJVCUTOAC DEFICIENCY 08/05/2016 ERNESTO CAMPBELL N Ot 280.9 IRON DEFIC ANEMIA NOS 08/05/2016 ERNESTO CAMPBELL N Ot 496 CHR AIRWAY OBSTRUCT NEC 08/05/2016 ERNESTO CAMPBELL N Ot 626.2 EXCESSIVE MENSTRUATION 08/05/2016 ERNESTO CAMPBELL Ot V58.69 OTH MED,LT,CURRENT USE 08/05/2016 Ot 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 08/05/2016 Ot 280.8 IRON DEFIC ANEMIA NEC 08/05/2016 Ot 496 CHR AIRWAY OBSTRUCT NEC 08/05/2016 Ot 585.3 CHRONIC KIDNEY DISEASE, STAGE III (MODER 08/05/2016 Ot 626.2 EXCESSIVE MENSTRUATION 08/05/2016 Ot V58.69 OTH MED,LT, CURRENT USE 08/05/2016 Ot 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 08/05/2016 Ot 280.9 IRON DEFIC ANEMIA NOS 08/05/2016 Ot 401.9 HYPERTENSION NOS 08/05/2016 Ot 496 CHR AIRWAY OBSTRUCT NEC 08/05/2016 AYDEN GUZMAN, ARANZA Sawyer Ot 273.4 NPPBV-7-BURYRWMTSQL DEFICIENCY 08/05/2016 REMY TREVIZO STEVEDORING SUPERINTENDENT Ot 273.4 TEZCI-4-SLZPQVYIXAE DEFICIENCY 08/05/2016 REMY TREVIZO STEVEDORING SUPERINTENDENT Ot 280.9 IRON DEFIC ANEMIA NOS 08/05/2016 REMY TREVIZO STEVEDORING SUPERINTENDENT Ot 401.9 HYPERTENSION NOS 08/05/2016 REMY TREVIZO STEVEDORING SUPERINTENDENT Ot 496 CHR AIRWAY OBSTRUCT NEC 08/05/2016 REMY TREVIZO STEVEDORING SUPERINTENDENT Ot 585.3 CHRONIC KIDNEY DISEASE, STAGE III (MODER 08/05/2016 REMY TREVIZO STEVEDORING SUPERINTENDENT Ot V58.69 OTH MED,LT,CURRENT USE 08/05/2016 ERNESTO CAMPBELL N Ot D50.9 IRON DEFICIENCY ANEMIA, UNSPECIFIED 08/05/2016 ANKITA TAM DO Ot Z12.31 ENCNTR SCREEN MAMMOGRAM FOR MALIGNANT NE 08/05/2016 ANKITA TAM DO Ot N91.2 AMENORRHEA, UNSPECIFIED 08/05/2016 REMY TREVIZO STEVEDORING SUPERINTENDENT Ot D50.9 IRON DEFICIENCY ANEMIA, UNSPECIFIED 08/05/2016 REMY TREVIZO STEVEDORING SUPERINTENDENT Ot E88.01 ENAFD-5-SFKVSQLDYBW DEFICIENCY 08/05/2016 TREVIZOREMY Beasley STEVEDORING SUPERINTENDENT Ot I12.9 HYPERTENSIVE CHRONIC KIDNEY DISEASE W ST 08/05/2016 TREVIZOREMY Beasley STEVEDORING SUPERINTENDENT Ot J44.9 CHRONIC OBSTRUCTIVE PULMONARY DISEASE, U 08/05/2016 REMY TREVIZO STEVEDORING SUPERINTENDENT Ot N18.9 CHRONIC KIDNEY DISEASE, UNSPECIFIED 08/05/2016 REMY TREVIZO STEVEDORING SUPERINTENDENT Ot Z79.899 OTHER JAIL (CURRENT) DRUG THERAPY 08/05/2016 TREVIZOREMY Beasley STEVEDORING SUPERINTENDENT Ot D50.9 IRON DEFICIENCY ANEMIA, UNSPECIFIED 08/05/2016 LOIS SANDERS DO Ot E88.01 ZKWWH-3-WMXBXZZDQYJ DEFICIENCY 08/05/2016 LOIS SANDERS DO Ot F41.9 ANXIETY DISORDER, UNSPECIFIED 08/05/2016 LOIS SANDERS DO Ot J45.909 UNSPECIFIED ASTHMA, UNCOMPLICATED 08/05/2016 LOIS SANDERS DO Ot R06.02 SHORTNESS OF BREATH 08/05/2016 LOIS SANDERS DO Ot R09.02 HYPOXEMIA 08/05/2016 LOIS SANDERS DO Ot R09.02 HYPOXEMIA 08/05/2016 MARIO ANDERSON APRN Ot D50.9 IRON DEFICIENCY ANEMIA, UNSPECIFIED 08/05/2016 MARIO ANDERSON APRN Ot E88.01 VMBWX-9-ECQNPBQSADY DEFICIENCY 08/05/2016 MARIO ANDERSON APRN Ot I12.9 HYPERTENSIVE CHRONIC KIDNEY DISEASE W ST 08/05/2016 MARIO ANDERSON APRN Ot J44.9 CHRONIC OBSTRUCTIVE PULMONARY DISEASE, U 08/05/2016 MARIO ANDERSON ORDINARY SEAMAN Ot N18.9 CHRONIC KIDNEY DISEASE, UNSPECIFIED 08/05/2016 MARIO ANDERSON ORDINARY SEAMAN Ot Z79.899 OTHER JAIL (CURRENT) DRUG THERAPY 08/15/2016 MARIO ANDERSON APRN Ot J40 BRONCHITIS, NOT SPECIFIED ACUTE OR CH 08/15/2016 MARIO ANDERSON ORDINARY SEAMAN Ot J96.10 CHRONIC RESPIRATORY FAILURE, UNSP W HYPO 09/03/2016 MARIO ANDERSON APRN Ot D50.9 IRON DEFICIENCY ANEMIA, UNSPECIFIED 09/03/2016 JUSTIN, MARIO E ORDINARY SEAMAN Ot E88.01 WATBS-1-NGDNKPZJCVH DEFICIENCY 09/03/2016 MARIO ANDERSON E ORDINARY SEAMAN Ot I12.9 HYPERTENSIVE CHRONIC KIDNEY DISEASE W ST 09/03/2016 MARIO ANDERSON E ORDINARY SEAMAN Ot J44.9 CHRONIC OBSTRUCTIVE PULMONARY DISEASE, U 09/03/2016 MARIO ANDERSON ORDINARY SEAMAN Ot N18.9 CHRONIC KIDNEY DISEASE, UNSPECIFIED 09/03/2016 MARIO ANDERSON ORDINARY SEAMAN Ot Z79.899 OTHER RADIATION MONITOR (CURRENT) DRUG THERAPY 09/04/2016 MARIO ANDERSON ORDINARY SEAMAN Ot D50.9 IRON DEFICIENCY ANEMIA, UNSPECIFIED 09/04/2016 MARIO ANDERSON ORDINARY SEAMAN Ot E88.01 GUZRA-1-CDXIQMVOSQD DEFICIENCY 09/04/2016 MARIO ANDERSON ORDINARY SEAMAN Ot I12.9 HYPERTENSIVE CHRONIC KIDNEY DISEASE W ST 09/04/2016 MARIO ANDERSON ORDINARY SEAMAN Ot J44.9 CHRONIC OBSTRUCTIVE PULMONARY DISEASE, U 09/04/2016 MARIO ANDERSON ORDINARY SEAMAN Ot N18.9 CHRONIC KIDNEY DISEASE, UNSPECIFIED 09/04/2016 MARIO ANDERSON ORDINARY SEAMAN Ot Z79.899 OTHER RADIATION MONITOR (CURRENT) DRUG THERAPY 09/17/2016 ADRIAN, BOBAN N Ot D50.9 IRON DEFICIENCY ANEMIA, UNSPECIFIED 09/17/2016 ADRIAN, BOBAN N Ot E88.01 FLDBO-8-NJGSSJUEORN DEFICIENCY 09/17/2016 ADRIAN, BOBAN N Ot I12.9 HYPERTENSIVE CHRONIC KIDNEY DISEASE W ST 09/17/2016 ADRIAN, BOBAN N Ot J44.9 CHRONIC OBSTRUCTIVE PULMONARY DISEASE, U 09/17/2016 ADRIAN, BOBAN N Ot N18.9 CHRONIC KIDNEY DISEASE, UNSPECIFIED 09/17/2016 ADRIAN, BOBAN N Ot Z79.899 OTHER JAIL (CURRENT) DRUG THERAPY 09/17/2016 MARIO ANDERSON ORDINARY SEAMAN Ot D50.9 IRON DEFICIENCY ANEMIA, UNSPECIFIED 09/17/2016 MARIO ANDERSON ORDINARY SEAMAN Ot E88.01 LKHGV-4-QIFVSLZQTOK DEFICIENCY 09/17/2016 MARIO ANDERSON ORDINARY SEAMAN Ot I12.9 HYPERTENSIVE CHRONIC KIDNEY DISEASE W ST 09/17/2016 MARIO ANDERSON ORDINARY SEAMAN Ot J44.9 CHRONIC OBSTRUCTIVE PULMONARY DISEASE, U 09/17/2016 MARIO ANDERSON ORDINARY SEAMAN Ot N18.9 CHRONIC KIDNEY DISEASE, UNSPECIFIED 09/17/2016 MAI ANDERSONINE Harvey ORDINARY SEAMAN Ot Z79.899 OTHER JAIL (CURRENT) DRUG THERAPY 10/03/2016 MAI ANDERSONINE E ORDINARY SEAMAN Ot D50.9 IRON DEFICIENCY ANEMIA, UNSPECIFIED 10/03/2016 MAI ANDERSONINE E ORDINARY SEAMAN Ot E88.01 GPQFN-9-KDVJFJMYDBS DEFICIENCY 10/03/2016 MARIO ANDERSON ORDINARY SEAMAN Ot I12.9 HYPERTENSIVE CHRONIC KIDNEY DISEASE W ST 10/03/2016 MARIO ANDERSON ORDINARY SEAMAN Ot J44.9 CHRONIC OBSTRUCTIVE PULMONARY DISEASE, U 10/03/2016 MARIO ANDERSON ORDINARY SEAMAN Ot N18.9 CHRONIC KIDNEY DISEASE, UNSPECIFIED 10/03/2016 MAI ANDERSONINE Harvey ORDINARY SEAMAN Ot Z79.899 OTHER JAIL (CURRENT) DRUG THERAPY 10/03/2016 ADRIAN BOBAN N Ot D50.9 IRON DEFICIENCY ANEMIA, UNSPECIFIED 10/03/2016 ADRIAN, BOBAN N Ot E88.01 FFJSB-3-UBWEUEXDLWO DEFICIENCY 10/03/2016 ADRIAN, BOBAN N Ot I12.9 HYPERTENSIVE CHRONIC KIDNEY DISEASE W ST 10/03/2016 ADRIAN, BOBAN N Ot J44.9 CHRONIC OBSTRUCTIVE PULMONARY DISEASE, U 10/03/2016 ADRIAN, BOBAN N Ot N18.9 CHRONIC KIDNEY DISEASE, UNSPECIFIED 10/03/2016 ADRIAN, BOBAN N Ot Z79.899 OTHER RADIATION MONITOR (CURRENT) DRUG THERAPY 11/22/2016 MARIO ANDERSON ORDINARY SEAMAN Ot D50.9 IRON DEFICIENCY ANEMIA, UNSPECIFIED 11/22/2016 MARIO ANDERSON E ORDINARY SEAMAN Ot E88.01 IJGFB-1-QVXDZFQUUGD DEFICIENCY 11/22/2016 MARIO ANDERSON ORDINARY SEAMAN Ot I12.9 HYPERTENSIVE CHRONIC KIDNEY DISEASE W ST 11/22/2016 MARIO ANDERSON ORDINARY SEAMAN Ot J44.9 CHRONIC OBSTRUCTIVE PULMONARY DISEASE, U 11/22/2016 MAI ANDERSONINE E ORDINARY SEAMAN Ot N18.9 CHRONIC KIDNEY DISEASE, UNSPECIFIED 11/22/2016 MAI ANDERSONINE E ORDINARY SEAMAN Ot Z79.899 OTHER RADIATION MONITOR (CURRENT) DRUG THERAPY 11/22/2016 ADRIAN, BOBAN N Ot D50.9 IRON DEFICIENCY ANEMIA, UNSPECIFIED 11/22/2016 ERNESTO CAMPBELL N Ot E88.01 ASDGG-8-YPGVBPAHMFL DEFICIENCY 11/22/2016 ERNESTO CAMPBELL N Ot I12.9 HYPERTENSIVE CHRONIC KIDNEY DISEASE W ST 11/22/2016 ERNESTO CAMPBELL N Ot J44.9 CHRONIC OBSTRUCTIVE PULMONARY DISEASE, U 11/22/2016 ERNESTO CAMPBELL N Ot N18.9 CHRONIC KIDNEY DISEASE, UNSPECIFIED 11/22/2016 ADRIAN, BOBVIRI N Ot Z79.899 OTHER RADIATION MONITOR (CURRENT) DRUG THERAPY 11/25/2016 MAI ANDERSONINE Harvey ORDINARY SEAMAN Ot D50.9 IRON DEFICIENCY ANEMIA, UNSPECIFIED 11/25/2016 MAI ANDERSONINE Harvey ORDINARY SEAMAN Ot E88.01 CMSHA-0-AZEVYALJFVN DEFICIENCY 11/25/2016 MAI ANDERSONINE E ORDINARY SEAMAN Ot I12.9 HYPERTENSIVE CHRONIC KIDNEY DISEASE W ST 11/25/2016 MAI ANDERSONINE Harvey ORDINARY SEAMAN Ot J44.9 CHRONIC OBSTRUCTIVE PULMONARY DISEASE, U 11/25/2016 MIA ANDERSONINE Harvey ORDINARY SEAMAN Ot N18.9 CHRONIC KIDNEY DISEASE, UNSPECIFIED 11/25/2016 MAI ANDERSONINE E ORDINARY SEAMAN Ot Z79.899 OTHER JAIL (CURRENT) DRUG THERAPY 11/26/2016 MAI ANDERSONINE Harvey ORDINARY SEAMAN Ot D50.9 IRON DEFICIENCY ANEMIA, UNSPECIFIED 11/26/2016 MAI ANDERSONINE E ORDINARY SEAMAN Ot E88.01 XZARS-5-XPSPBQSYDDP DEFICIENCY 11/26/2016 MARIO ANDERSON ORDINARY SEAMAN Ot I12.9 HYPERTENSIVE CHRONIC KIDNEY DISEASE W ST 11/26/2016 MARIO ANDERSON ORDINARY SEAMAN Ot J44.9 CHRONIC OBSTRUCTIVE PULMONARY DISEASE, U 11/26/2016 MAI ANDERSONINE E ORDINARY SEAMAN Ot N18.9 CHRONIC KIDNEY DISEASE, UNSPECIFIED 11/26/2016 MAI ANDERSONINE E ORDINARY SEAMAN Ot Z79.899 OTHER RADIATION MONITOR (CURRENT) DRUG THERAPY 11/28/2016 MAI ANDERSONINE E ORDINARY SEAMAN Ot D50.9 IRON DEFICIENCY ANEMIA, UNSPECIFIED 11/28/2016 MAI ANDERSONINE E ORDINARY SEAMAN Ot E88.01 MKBVU-8-BWRUGWKGWTO DEFICIENCY 11/28/2016 MAI ANDERSONINE E ORDINARY SEAMAN Ot I12.9 HYPERTENSIVE CHRONIC KIDNEY DISEASE W ST 11/28/2016 MARIO ANDERSON ORDINARY SEAMAN Ot J44.9 CHRONIC OBSTRUCTIVE PULMONARY DISEASE, U 11/28/2016 MARIO ANDERSON ORDINARY SEAMAN Ot N18.9 CHRONIC KIDNEY DISEASE, UNSPECIFIED 11/28/2016 MARIO ANDERSON ORDINARY SEAMAN Ot Z79.899 OTHER RADIATION MONITOR (CURRENT) DRUG THERAPY 12/31/2016 MARIO ANDERSON ORDINARY SEAMAN Ot D50.9 IRON DEFICIENCY ANEMIA, UNSPECIFIED 12/31/2016 MARIO ANDERSON ORDINARY SEAMAN Ot E88.01 KJRIS-7-STTZGHFQUCU DEFICIENCY 12/31/2016 MARIO ANDERSON ORDINARY SEAMAN Ot I12.9 HYPERTENSIVE CHRONIC KIDNEY DISEASE W ST 12/31/2016 MARIO ANDERSON ORDINARY SEAMAN Ot J44.9 CHRONIC OBSTRUCTIVE PULMONARY DISEASE, U 12/31/2016 MARIO ANDERSON ORDINARY SEAMAN Ot N18.9 CHRONIC KIDNEY DISEASE, UNSPECIFIED 12/31/2016 MARIO ANDERSON ORDINARY SEAMAN Ot Z79.899 OTHER JAIL (CURRENT) DRUG THERAPY 01/09/2017 MARIO ANDERSON ORDINARY SEAMAN Ot D50.9 IRON DEFICIENCY ANEMIA, UNSPECIFIED 01/09/2017 MARIO ANDERSON ORDINARY SEAMAN Ot E88.01 NXWDL-3-PPQLECBMFLW DEFICIENCY 01/09/2017 MARIO ANDERSON ORDINARY SEAMAN Ot I12.9 HYPERTENSIVE CHRONIC KIDNEY DISEASE W ST 01/09/2017 MARIO ANDERSON ORDINARY SEAMAN Ot J44.9 CHRONIC OBSTRUCTIVE PULMONARY DISEASE, U 01/09/2017 MARIO ANDERSON ORDINARY SEAMAN Ot N18.9 CHRONIC KIDNEY DISEASE, UNSPECIFIED 01/09/2017 MARIO ANDERSON ORDINARY SEAMAN Ot Z79.899 OTHER RADIATION MONITOR (CURRENT) DRUG THERAPY 02/23/2017 MARIO ANDERSON ORDINARY SEAMAN Ot D50.9 IRON DEFICIENCY ANEMIA, UNSPECIFIED 02/23/2017 MARIO ANDRESON ORDINARY SEAMAN Ot E88.01 NHVAF-1-LCDDTQOQMTG DEFICIENCY 02/23/2017 MARIO ANDERSON ORDINARY SEAMAN Ot I12.9 HYPERTENSIVE CHRONIC KIDNEY DISEASE W ST 02/23/2017 MARIO ANDERSON ORDINARY SEAMAN Ot J44.9 CHRONIC OBSTRUCTIVE PULMONARY DISEASE, U 02/23/2017 MARIO ANDERSON ORDINARY SEAMAN Ot N18.9 CHRONIC KIDNEY DISEASE, UNSPECIFIED 02/23/2017 MARIO ANDERSON ORDINARY SEAMAN Ot Z79.899 OTHER JAIL (CURRENT) DRUG THERAPY 02/25/2017 MARIO ANDERSON ORDINARY SEAMAN Ot D50.9 IRON DEFICIENCY ANEMIA, UNSPECIFIED 02/25/2017 MAI ANDERSONINE Harvey ORDINARY SEAMAN Ot E88.01 IPKED-2-AYZWYMQNZBW DEFICIENCY 02/25/2017 MAI ANDERSONINE Harvey ORDINARY SEAMAN Ot I12.9 HYPERTENSIVE CHRONIC KIDNEY DISEASE W ST 02/25/2017 MARIO ANDERSON ORDINARY SEAMAN Ot J44.9 CHRONIC OBSTRUCTIVE PULMONARY DISEASE, U 02/25/2017 MARIO ANDERSON ORDINARY SEAMAN Ot N18.9 CHRONIC KIDNEY DISEASE, UNSPECIFIED 02/25/2017 MARIO ANDERSON ORDINARY SEAMAN Ot Z79.899 OTHER RADIATION MONITOR (CURRENT) DRUG THERAPY 04/07/2017 MARIO ANDERSON ORDINARY SEAMAN Ot D50.9 IRON DEFICIENCY ANEMIA, UNSPECIFIED 04/07/2017 MARIO ANDERSON ORDINARY SEAMAN Ot E88.01 NIXMW-6-TTZOVXYWXSN DEFICIENCY 04/07/2017 MARIO ANDERSON ORDINARY SEAMAN Ot I12.9 HYPERTENSIVE CHRONIC KIDNEY DISEASE W ST 04/07/2017 MARIO ANDERSON ORDINARY SEAMAN Ot J44.9 CHRONIC OBSTRUCTIVE PULMONARY DISEASE, U 04/07/2017 MARIO ANDERSON ORDINARY SEAMAN Ot N18.9 CHRONIC KIDNEY DISEASE, UNSPECIFIED 04/07/2017 MAI ANDERSONINE E ORDINARY SEAMAN Ot Z79.899 OTHER JAIL (CURRENT) DRUG THERAPY 05/25/2017 MARIO ANDERSON ORDINARY SEAMAN Ot D50.9 IRON DEFICIENCY ANEMIA, UNSPECIFIED 05/25/2017 MARIO ANDERSON ORDINARY SEAMAN Ot E88.01 TDSWI-4-RFKBNKRQKBK DEFICIENCY 05/25/2017 MARIO ANDERSON ORDINARY SEAMAN Ot I12.9 HYPERTENSIVE CHRONIC KIDNEY DISEASE W ST 05/25/2017 MARIO ANDERSON ORDINARY SEAMAN Ot J44.9 CHRONIC OBSTRUCTIVE PULMONARY DISEASE, U 05/25/2017 MAI ANDERSONINE Harvey ORDINARY SEAMAN Ot N18.9 CHRONIC KIDNEY DISEASE, UNSPECIFIED 05/25/2017 MAI ANDERSONINE Harvey ORDINARY SEAMAN Ot Z79.899 OTHER JAIL (CURRENT) DRUG THERAPY 07/07/2017 REMY TREVIZO Ot 273.4 JTMWS-4-GMYYIFIIWIL DEFICIENCY 07/07/2017 SANTHOSH REMY Beasley STEVEDORING SUPERINTENDENT Ot 280.9 IRON DEFIC ANEMIA NOS 07/07/2017 TREVIZOREMY Beasley S STEVEDORING SUPERINTENDENT Ot 496 CHR AIRWAY OBSTRUCT NEC 07/07/2017 TREVIZOREMY Beasley S STEVEDORING SUPERINTENDENT Ot 626.2 EXCESSIVE MENSTRUATION 07/07/2017 TREVIZOREMY Beasley STEVEDORING SUPERINTENDENT Ot V58.69 OTH MED,LT,CURRENT USE 07/07/2017 LOIS SANDERS DO Ot 278.01 MORBID OBESITY 07/07/2017 LOIS SANDERS DO Ot 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, NOS 07/07/2017 SANTH[place]H REMY S STEVEDORING SUPERINTENDENT Ot 273.4 ZGRCO-2-CKSUUYZGJED DEFICIENCY 07/07/2017 SANTHOSH REMY S STEVEDORING SUPERINTENDENT Ot 280.9 IRON DEFIC ANEMIA NOS 07/07/2017 TREVIZOREMY Beasley S STEVEDORING SUPERINTENDENT Ot 496 CHR AIRWAY OBSTRUCT NEC 07/07/2017 TREVIZO REMY S STEVEDORING SUPERINTENDENT Ot 626.2 EXCESSIVE MENSTRUATION 07/07/2017 TREVIZO REMY Beasley STEVEDORING SUPERINTENDENT Ot V58.69 OTH MED,LT,CURRENT USE 07/07/2017 TREVIZO REMY S STEVEDORING SUPERINTENDENT Ot 273.4 JZBGZ-5-QPEOSFAXPZO DEFICIENCY 07/07/2017 SANTH[place] REMY S STEVEDORING SUPERINTENDENT Ot 280.9 IRON DEFIC ANEMIA NOS 07/07/2017 TREVIZOREMY Beasley S STEVEDORING SUPERINTENDENT Ot 496 CHR AIRWAY OBSTRUCT NEC 07/07/2017 TREVIZO REMY S STEVEDORING SUPERINTENDENT Ot 626.2 EXCESSIVE MENSTRUATION 07/07/2017 SANTHOSH REMY S STEVEDORING SUPERINTENDENT Ot V58.69 OTH MED,LT,CURRENT USE 07/07/2017 LOIS SANDERS DO Ot 273.4 HXSSQ-7-QENCVEACEGK DEFICIENCY 07/07/2017 LOIS SANDERS DO Ot 518.83 CHRONIC RESPIRATORY FAILURE 07/07/2017 LOIS SANDERS DO Ot 786.05 SHORTNESS OF BREATH 07/07/2017 ANKITA TAM DO Ot V76.12 OTH SCREEN MAMMO-MALIGN NEOPLASM OF [place] 07/07/2017 ERNESTO CAMPBELL Ot 273.4 VEEIT-2-WIQEWMXAVQK DEFICIENCY 07/07/2017 ERNESTO CAMPBELL Ot 280.9 IRON DEFIC ANEMIA NOS 07/07/2017 ERNESTO CAMPBELL N Ot 496 CHR AIRWAY OBSTRUCT NEC 07/07/2017 ERNESTO CAMPBELL N Ot 626.2 EXCESSIVE MENSTRUATION 07/07/2017 ERNESTO CAMPBELL N Ot V58.69 OTH MED,LT,CURRENT USE 07/07/2017 Ot 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 07/07/2017 Ot 280.8 IRON DEFIC ANEMIA NEC 07/07/2017 Ot 496 CHR AIRWAY OBSTRUCT NEC 07/07/2017 Ot 585.3 CHRONIC KIDNEY DISEASE, STAGE III (MODER 07/07/2017 Ot 626.2 EXCESSIVE MENSTRUATION 07/07/2017 Ot V58.69 OTH MED,LT, CURRENT USE 07/07/2017 Ot 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 07/07/2017 Ot 280.9 IRON DEFIC ANEMIA NOS 07/07/2017 Ot 401.9 HYPERTENSION NOS 07/07/2017 Ot 496 CHR AIRWAY OBSTRUCT NEC 07/07/2017 AYDEN GUZMAN, ARANZA Sawyer Ot 273.4 XITUU-4-WQCBMGJNOYS DEFICIENCY 07/07/2017 TREVIZOREMY Beasley S STEVEDORING SUPERINTENDENT Ot 273.4 WPWBF-1-DDBDCDNQQYY DEFICIENCY 07/07/2017 REMY TREVIZO S STEVEDORING SUPERINTENDENT Ot 280.9 IRON DEFIC ANEMIA NOS 07/07/2017 REMY TREVIZO S STEVEDORING SUPERINTENDENT Ot 401.9 HYPERTENSION NOS 07/07/2017 REMY TREVIZO S STEVEDORING SUPERINTENDENT Ot 496 CHR AIRWAY OBSTRUCT NEC 07/07/2017 REMY TREVIZO S STEVEDORING SUPERINTENDENT Ot 585.3 CHRONIC KIDNEY DISEASE, STAGE III (MODER 07/07/2017 REMY TREVIZO STEVEDORING SUPERINTENDENT Ot V58.69 OTH MED,LT,CURRENT USE 07/07/2017 ERNESTO CAMPBELL Long Ot D50.9 IRON DEFICIENCY ANEMIA, UNSPECIFIED 07/07/2017 ANKITA TAM DO Ot Z12.31 ENCNTR SCREEN MAMMOGRAM FOR MALIGNANT NE 07/07/2017 ANKITA TAM DO Ot N91.2 AMENORRHEA, UNSPECIFIED 07/07/2017 REMY TREVIZO S STEVEDORING SUPERINTENDENT Ot D50.9 IRON DEFICIENCY ANEMIA, UNSPECIFIED 07/07/2017 REMY TREVIZO S STEVEDORING SUPERINTENDENT Ot E88.01 ZJFLH-0-VOHJQSIRTIF DEFICIENCY 07/07/2017 REMY TREVIZO S STEVEDORING SUPERINTENDENT Ot I12.9 HYPERTENSIVE CHRONIC KIDNEY DISEASE W ST 07/07/2017 TREVIZOREMY Beasley STEVEDORING SUPERINTENDENT Ot J44.9 CHRONIC OBSTRUCTIVE PULMONARY DISEASE, U 07/07/2017 REMY TREVIZO STEVEDORING SUPERINTENDENT Ot N18.9 CHRONIC KIDNEY DISEASE, UNSPECIFIED 07/07/2017 REMY TREVIZO STEVEDORING SUPERINTENDENT Ot Z79.899 OTHER RADIATION MONITOR (CURRENT) DRUG THERAPY 07/07/2017 TREVIZOREMY Beasley STEVEDORING SUPERINTENDENT Ot D50.9 IRON DEFICIENCY ANEMIA, UNSPECIFIED 07/07/2017 LOIS SANDERS DO Ot E88.01 FLHTH-2-XAJWZDVXIRG DEFICIENCY 07/07/2017 LOIS SANDERS DO Ot F41.9 ANXIETY DISORDER, UNSPECIFIED 07/07/2017 LOIS SANDERS DO Ot J45.909 UNSPECIFIED ASTHMA, UNCOMPLICATED 07/07/2017 LOIS SANDERS DO Ot R06.02 SHORTNESS OF BREATH 07/07/2017 LOIS SANDERS DO Ot R09.02 HYPOXEMIA 07/07/2017 LOIS SANDERS DO Ot R09.02 HYPOXEMIA 07/07/2017 MARIO ANDERSON APRN Ot J40 BRONCHITIS, NOT SPECIFIED ACUTE OR CH 07/07/2017 MARIO ANDERSON APRN Ot J96.10 CHRONIC RESPIRATORY FAILURE, UNSP W HYPO 07/07/2017 ERNESTO CAMPBELL Ot D50.9 IRON DEFICIENCY ANEMIA, UNSPECIFIED 07/07/2017 ERNESTO CAMPBELL Ot E88.01 RNTVK-7-MYECJNRVROQ DEFICIENCY 07/07/2017 ERNESTO CAMPBELL Ot I12.9 HYPERTENSIVE CHRONIC KIDNEY DISEASE W ST 07/07/2017 ERNESTO CAMPBELL Ot J44.9 CHRONIC OBSTRUCTIVE PULMONARY DISEASE, U 07/07/2017 ERNESTO CAMPBELL Ot N18.9 CHRONIC KIDNEY DISEASE, UNSPECIFIED 07/07/2017 ERNESTO CAMPBELL Ot Z79.899 OTHER JAIL (CURRENT) DRUG THERAPY 07/07/2017 MARIO ANDERSON APRN Ot D50.9 IRON DEFICIENCY ANEMIA, UNSPECIFIED 07/07/2017 MARIO ANDERSON APRN Ot E88.01 FTTOL-8-IVTSTRCMOAD DEFICIENCY 07/07/2017 MARIO ANDERSON APRN Ot I12.9 HYPERTENSIVE CHRONIC KIDNEY DISEASE W ST 07/07/2017 MARIO ANDESRON APRN Ot J44.9 CHRONIC OBSTRUCTIVE PULMONARY DISEASE, U 07/07/2017 MARIO ANDERSON APRN Ot N18.9 CHRONIC KIDNEY DISEASE, UNSPECIFIED 07/07/2017 MARIO ANDERSON APRN Ot Z79.899 OTHER JAIL (CURRENT) DRUG THERAPY 07/09/2017 ARANZA HENSLEY MD, Ot E66.01 MORBID (SEVERE) OBESITY DUE TO EXCESS CA 07/09/2017 ARANZA HENSLEY MD, Ot E88.01 OGFJP-8-YJWQUAGSZGQ DEFICIENCY 07/09/2017 ARANZA HENSLEY MD, Ot F32.9 MAJOR DEPRESSIVE DISORDER, SINGLE EPISOD 07/09/2017 ARANZA HENSLEY MD, Ot F41.9 ANXIETY DISORDER, UNSPECIFIED 07/09/2017 ARANZA HENSLEY MD, Ot J43.9 EMPHYSEMA, UNSPECIFIED 07/09/2017 ARANZA HENSLEY MD, Ot J45.909 UNSPECIFIED ASTHMA, UNCOMPLICATED 07/09/2017 ARANZA HENSLEY MD Ot J96.20 ACUTE AND CHR RESP FAILURE, UNSP W HYPOX 07/09/2017 ARANZA HENSLEY MD, Ot J98.11 ATELECTASIS 07/09/2017 ARANZA HENSLEY MD, Ot M19.91 PRIMARY OSTEOARTHRITIS, UNSPECIFIED SITE 07/09/2017 ARANZA HENSLEY MD Ot R91.8 OTHER NONSPECIFIC ABNORMAL FINDING OF ZHAO 07/09/2017 ARANZA HENSLEY MD Ot Z68.43 BODY MASS INDEX (BMI) 50-59.9 , ADULT 07/09/2017 ARANZA HENSLEY MD Ot Z87.01 PERSONAL HISTORY OF PNEUMONIA (RECURRENT 07/09/2017 ARANZA HENSLEY MD, Ot Z87.891 PERSONAL HISTORY OF NICOTINE DEPENDENCE 07/09/2017 ARANZA HENSLEY MD Ot Z99.81 DEPENDENCE ON SUPPLEMENTAL OXYGEN 07/10/2017 ARANZA HENSLEY MD, Ot E66.01 MORBID (SEVERE) OBESITY DUE TO EXCESS CA 07/10/2017 ARANZA HENSLEY MD, Ot E88.01 TPJMA-7-CQMWPOISDLM DEFICIENCY 07/10/2017 ARANZA HENSLEY MD, Ot F32.9 MAJOR DEPRESSIVE DISORDER, SINGLE EPISOD 07/10/2017 ARANZA HENSLEY MD, Ot F41.9 ANXIETY DISORDER, UNSPECIFIED 07/10/2017 ARANZA HENSLEY MD Ot J43.9 EMPHYSEMA, UNSPECIFIED 07/10/2017 ARANZA HENSLEY MD Ot J45.909 UNSPECIFIED ASTHMA, UNCOMPLICATED 07/10/2017 ARANZA HENSLEY MD Ot J96.20 ACUTE AND CHR RESP FAILURE, UNSP W HYPOX 07/10/2017 ARANZA HENSLEY MD Ot J98.11 ATELECTASIS 07/10/2017 ARANZA HENSLEY MD Ot M19.91 PRIMARY OSTEOARTHRITIS, UNSPECIFIED SITE 07/10/2017 ARANZA HENSLEY MD Ot R91.8 OTHER NONSPECIFIC ABNORMAL FINDING OF ZHAO 07/10/2017 ARANZA HENSLEY MD Ot Z68.43 BODY MASS INDEX (BMI) 50-59.9 , ADULT 07/10/2017 ARANZA HENSLEY MD Ot Z87.01 PERSONAL HISTORY OF PNEUMONIA (RECURRENT 07/10/2017 ARANZA HENSLEY MD Ot Z87.891 PERSONAL HISTORY OF NICOTINE DEPENDENCE 07/10/2017 ARANZA HENSLEY MD Ot Z99.81 DEPENDENCE ON SUPPLEMENTAL OXYGEN 09/03/2017 LOIS SANDERS DO Ot E66.01 MORBID (SEVERE) OBESITY DUE TO EXCESS CA 09/03/2017 LOIS SANDERS DO Ot E88.01 GGSLF-7-KUDFOSOJJTT DEFICIENCY 09/03/2017 LOIS SANDERS DO, Ot J45.909 UNSPECIFIED ASTHMA, UNCOMPLICATED 09/03/2017 LOIS SANDERS DO Ot J96.10 CHRONIC RESPIRATORY FAILURE, UNSP W HYPO 09/18/2017 ERNESTO CAMPBELL Ot D50.9 IRON DEFICIENCY ANEMIA, UNSPECIFIED 09/18/2017 ERNESTO CAMPBELL Ot E88.01 ZGHQK-1-GBDKOTXFONQ DEFICIENCY 09/18/2017 ERNESTO CAMPBELL Ot I12.9 HYPERTENSIVE CHRONIC KIDNEY DISEASE W ST 09/18/2017 ERNESTO CAMPBELL Ot J44.9 CHRONIC OBSTRUCTIVE PULMONARY DISEASE, U 09/18/2017 ERNESTO CAMPBELL Ot N18.9 CHRONIC KIDNEY DISEASE, UNSPECIFIED 09/18/2017 ERNESTO CAMPBELL Ot Z79.899 OTHER RADIATION MONITOR (CURRENT) DRUG THERAPY 10/13/2017 MARIO ANDERSON APRN Ot E66.01 MORBID (SEVERE) OBESITY DUE TO EXCESS CA 10/13/2017 MARIO ANDERSON APRN Ot E88.01 FEFJT-0-BVKSLGDTWRO DEFICIENCY 10/13/2017 MARIO ANDERSON APRN Ot J45.909 UNSPECIFIED ASTHMA, UNCOMPLICATED 10/13/2017 MARIO ANDERSON APRN Ot J96.10 CHRONIC RESPIRATORY FAILURE, UNSP W HYPO 10/13/2017 MARIO ANDERSON APRN Ot Z68.43 BODY MASS INDEX (BMI) 50-59.9 , ADULT 10/15/2017 LOIS SANDERS DO Ot E66.01 MORBID (SEVERE) OBESITY DUE TO EXCESS CA 10/15/2017 LOIS SANDERS DO Ot E88.01 OETMY-8-RPGAJZILUMS DEFICIENCY 10/15/2017 LOIS SANDERS DO Ot J45.909 UNSPECIFIED ASTHMA, UNCOMPLICATED 10/15/2017 LOIS SANDERS DO Ot J96.10 CHRONIC RESPIRATORY FAILURE, UNSP W HYPO 10/20/2017 MARIO ANDERSON APRN Ot E66.01 MORBID (SEVERE) OBESITY DUE TO EXCESS CA 10/20/2017 MARIO ANDERSON APRN Ot E88.01 TLEHF-5-TVAWBKCEWME DEFICIENCY 10/20/2017 MARIO ANDERSON APRN Ot J45.909 UNSPECIFIED ASTHMA, UNCOMPLICATED 10/20/2017 MARIO ANDERSON APRN Ot J96.10 CHRONIC RESPIRATORY FAILURE, UNSP W HYPO 10/20/2017 MARIO ANDERSON APRN Ot Z68.43 BODY MASS INDEX (BMI) 50-59.9 , ADULT 10/27/2017 LOIS SANDERS DO Ot E66.01 MORBID (SEVERE) OBESITY DUE TO EXCESS CA 10/27/2017 LOIS SANDERS DO Ot E88.01 EBIPY-1-JEIGDVKJHXW DEFICIENCY 10/27/2017 LOIS SANDERS DO Ot J45.909 UNSPECIFIED ASTHMA, UNCOMPLICATED 10/27/2017 LOIS SANDERS DO Ot J96.10 CHRONIC RESPIRATORY FAILURE, UNSP W HYPO 10/30/2017 MARIO ANDERSON APRN Ot R06.02 SHORTNESS OF BREATH 11/04/2017 MARIO ANDERSON APRN Ot R06.02 SHORTNESS OF BREATH 11/08/2017 LOIS SANDERS DO, Ot E66.01 MORBID (SEVERE) OBESITY DUE TO EXCESS CA 11/08/2017 LOIS SANDERS DO Ot E88.01 HFFYY-1-MKYNBZSVWSG DEFICIENCY 11/08/2017 LOIS SANDERS DO, Ot J45.909 UNSPECIFIED ASTHMA, UNCOMPLICATED 11/08/2017 LOIS SANDERS DO Ot J96.10 CHRONIC RESPIRATORY FAILURE, UNSP W HYPO 11/10/2017 MARIO ANDERSON APRN Ot R06.02 SHORTNESS OF BREATH 11/10/2017 LOIS SANDERS DO Ot E66.01 MORBID (SEVERE) OBESITY DUE TO EXCESS CA 11/10/2017 LOIS SANDERS DO, Ot E88.01 LUULK-6-FHRPISCKLIE DEFICIENCY 11/10/2017 LOIS SANDERS DO, Ot J45.909 UNSPECIFIED ASTHMA, UNCOMPLICATED 11/10/2017 LOIS SANDERS DO, Ot J96.10 CHRONIC RESPIRATORY FAILURE, UNSP W HYPO 11/14/2017 LOIS SANDERS DO, Ot E66.01 MORBID (SEVERE) OBESITY DUE TO EXCESS CA 11/14/2017 LOIS SANDERS DO, Ot E88.01 YVUYW-6-ATOKCXVHZQL DEFICIENCY 11/14/2017 LOIS SANDERS DO, Ot J45.909 UNSPECIFIED ASTHMA, UNCOMPLICATED 11/14/2017 LOIS SANDERS DO Ot J96.10 CHRONIC RESPIRATORY FAILURE, UNSP W HYPO 11/17/2017 LOIS SANDERS DO Ot E66.01 MORBID (SEVERE) OBESITY DUE TO EXCESS CA 11/17/2017 LOIS SANDERS DO, Ot E88.01 TQGFJ-8-ZDOOIHFPJFM DEFICIENCY 11/17/2017 LOIS SANDERS DO Ot J43.2 CENTRILOBULAR EMPHYSEMA 11/17/2017 LOIS SANDERS DO, Ot J45.909 UNSPECIFIED ASTHMA, UNCOMPLICATED 11/17/2017 LOIS SANDERS DO Ot J96.10 CHRONIC RESPIRATORY FAILURE, UNSP W HYPO 11/24/2017 LOIS SANDERS DO Ot E66.01 MORBID (SEVERE) OBESITY DUE TO EXCESS CA 11/24/2017 LOIS SANDERS DO, Ot E88.01 GLBDC-3-YSRTNKUBZYO DEFICIENCY 11/24/2017 LOIS SANDERS DO Ot J45.909 UNSPECIFIED ASTHMA, UNCOMPLICATED 11/24/2017 LOIS SANDERS DO Ot J96.10 CHRONIC RESPIRATORY FAILURE, UNSP W HYPO 11/27/2017 LOIS SANDERS DO Ot E66.01 MORBID (SEVERE) OBESITY DUE TO EXCESS CA 11/27/2017 LOIS SANDERS DO Ot E88.01 NUTFQ-0-TKNGNLXUSCQ DEFICIENCY 11/27/2017 LOIS SANDERS DO Ot J45.909 UNSPECIFIED ASTHMA, UNCOMPLICATED 11/27/2017 LOIS SANDERS DO Ot J96.10 CHRONIC RESPIRATORY FAILURE, UNSP W HYPO 12/03/2017 LOIS SANDERS DO Ot E66.01 MORBID (SEVERE) OBESITY DUE TO EXCESS CA 12/03/2017 LOIS SANDERS DO Ot E88.01 SRDTN-1-URBMWYACZNU DEFICIENCY 12/03/2017 LOIS SANDERS DO Ot J45.909 UNSPECIFIED ASTHMA, UNCOMPLICATED 12/03/2017 LOIS SANDERS DO Ot J96.10 CHRONIC RESPIRATORY FAILURE, UNSP W HYPO 12/08/2017 LOIS SANDERS DO Ot E66.01 MORBID (SEVERE) OBESITY DUE TO EXCESS CA 12/08/2017 LOIS SANDERS DO Ot E88.01 VULRN-5-YZXEHPXBMHS DEFICIENCY 12/08/2017 LOIS SANDERS DO Ot J45.909 UNSPECIFIED ASTHMA, UNCOMPLICATED 12/08/2017 LOIS SANDERS DO Ot J96.10 CHRONIC RESPIRATORY FAILURE, UNSP W HYPO 12/08/2017 LOIS SANDERS DO Ot E66.01 MORBID (SEVERE) OBESITY DUE TO EXCESS CA 12/08/2017 LOIS SANDERS DO Ot E88.01 ENDHH-6-FZEVPQTFXAK DEFICIENCY 12/08/2017 LOIS SANDERS DO Ot J43.2 CENTRILOBULAR EMPHYSEMA 12/08/2017 LOIS SANDERS DO Ot J45.909 UNSPECIFIED ASTHMA, UNCOMPLICATED 12/08/2017 LOIS SANDERS DO Ot J96.10 CHRONIC RESPIRATORY FAILURE, UNSP W HYPO 12/15/2017 LOIS SANDERS DO Ot E66.01 MORBID (SEVERE) OBESITY DUE TO EXCESS CA 12/15/2017 LOIS SANDERS DO Ot E88.01 LGIJH-1-MUJTSUAIFMN DEFICIENCY 12/15/2017 LOIS SANDERS DO Ot J45.909 UNSPECIFIED ASTHMA, UNCOMPLICATED 12/15/2017 LOIS SANDERS DO Ot J96.10 CHRONIC RESPIRATORY FAILURE, UNSP W HYPO 12/16/2017 ERNESTO CAMPBELL Ot D50.9 IRON DEFICIENCY ANEMIA, UNSPECIFIED 12/16/2017 ERNESTO CAMPBELL Ot E88.01 YHDKK-6-OACVXIPBLHI DEFICIENCY 12/16/2017 ERNESTO CAMPBELL Ot I12.9 HYPERTENSIVE CHRONIC KIDNEY DISEASE W ST 12/16/2017 ERNESTO CAMPBELL Ot J44.9 CHRONIC OBSTRUCTIVE PULMONARY DISEASE, U 12/16/2017 ERNESTO CAMPBELL Ot N18.9 CHRONIC KIDNEY DISEASE, UNSPECIFIED 12/16/2017 ERNESTO CAMPBELL N Ot Z79.899 OTHER JAIL (CURRENT) DRUG THERAPY 12/17/2017 LOIS SANDERS DO Ot E66.01 MORBID (SEVERE) OBESITY DUE TO EXCESS CA 12/17/2017 LOIS SANDERS DO Ot E88.01 NONST-5-TEAGZVZWDNP DEFICIENCY 12/17/2017 LOIS SANDERS DO, Ot J45.909 UNSPECIFIED ASTHMA, UNCOMPLICATED 12/17/2017 LOIS SANDERS DO, Ot J96.10 CHRONIC RESPIRATORY FAILURE, UNSP W HYPO 12/17/2017 ERNESTO CAMPBELL Ot D50.9 IRON DEFICIENCY ANEMIA, UNSPECIFIED 12/17/2017 ERNESTO CAMPBELL Ot E88.01 GQWCU-0-IVHSUXQJIZU DEFICIENCY 12/17/2017 ERNESTO CAMPBELL Ot I12.9 HYPERTENSIVE CHRONIC KIDNEY DISEASE W ST 12/17/2017 ERNESTO CAMPBELL Ot J44.9 CHRONIC OBSTRUCTIVE PULMONARY DISEASE, U 12/17/2017 ERNESTO CAMPBELL N Ot N18.9 CHRONIC KIDNEY DISEASE, UNSPECIFIED 12/17/2017 ERNESTO CAMPBELL N Ot Z79.899 OTHER JAIL (CURRENT) DRUG THERAPY 12/29/2017 LOIS SANDERS DO Ot E66.01 MORBID (SEVERE) OBESITY DUE TO EXCESS CA 12/29/2017 LOIS SANDERS DO Ot E88.01 OQJSC-1-GWOTNORSWFJ DEFICIENCY 12/29/2017 LOIS SANDERS DO Ot J45.909 UNSPECIFIED ASTHMA, UNCOMPLICATED 12/29/2017 LOIS SANDERS DO Ot J96.10 CHRONIC RESPIRATORY FAILURE, UNSP W HYPO 01/05/2018 LOIS SANDERS DO Ot E66.01 MORBID (SEVERE) OBESITY DUE TO EXCESS CA 01/05/2018 LOIS SANDERS DO Ot E88.01 UNKET-5-WFUQMALDKHU DEFICIENCY 01/05/2018 LOIS SANDERS DO Ot J45.909 UNSPECIFIED ASTHMA, UNCOMPLICATED 01/05/2018 LOIS SANDERS DO Ot J96.10 CHRONIC RESPIRATORY FAILURE, UNSP W HYPO 02/02/2018 LOIS SANDERS DO Ot E66.01 MORBID (SEVERE) OBESITY DUE TO EXCESS CA 02/02/2018 LOIS SANDERS DO Ot E88.01 GAAOK-2-GYOFQKIVZKZ DEFICIENCY 02/02/2018 LOIS SANDERS DO Ot J45.909 UNSPECIFIED ASTHMA, UNCOMPLICATED 02/02/2018 LOIS SANDERS DO Ot J96.10 CHRONIC RESPIRATORY FAILURE, UNSP W HYPO 02/22/2018 LOIS SANDERS DO Ot E66.01 MORBID (SEVERE) OBESITY DUE TO EXCESS CA 02/22/2018 LOIS SANDERS DO Ot E88.01 HWORV-6-QZTHVTIEVLL DEFICIENCY 02/22/2018 LOIS SANDERS DO, Ot J45.909 UNSPECIFIED ASTHMA, UNCOMPLICATED 02/22/2018 LOIS SANDERS DO Ot J96.10 CHRONIC RESPIRATORY FAILURE, UNSP W HYPO 02/25/2018 REMY TREVIZOP Ot 273.4 YDOJM-4-HTZIRBPPEPU DEFICIENCY 02/25/2018 REMY TREVIZO STEVEDORING SUPERINTENDENT Ot 280.9 IRON DEFIC ANEMIA NOS 02/25/2018 REMY TREVIZO STEVEDORING SUPERINTENDENT Ot 496 CHR AIRWAY OBSTRUCT NEC 02/25/2018 REMY TREVIZOP Ot 626.2 EXCESSIVE MENSTRUATION 02/25/2018 REMY TREVIZOP Ot V58.69 OTH MED,LT,CURRENT USE 02/25/2018 LOIS SANDERS DO Ot 278.01 MORBID OBESITY 02/25/2018 LOIS SANDERS DO Ot 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, NOS 02/25/2018 REMY TREVIZO STEVEDORING SUPERINTENDENT Ot 273.4 FENUR-0-JKYJRFUDTZR DEFICIENCY 02/25/2018 REMY TREVIZO STEVEDORING SUPERINTENDENT Ot 280.9 IRON DEFIC ANEMIA NOS 02/25/2018 REMY TREVIZO STEVEDORING SUPERINTENDENT Ot 496 CHR AIRWAY OBSTRUCT NEC 02/25/2018 REMY TREVIZO STEVEDORING SUPERINTENDENT Ot 626.2 EXCESSIVE MENSTRUATION 02/25/2018 REMY TREVIZO STEVEDORING SUPERINTENDENT Ot V58.69 OTH MED,LT,CURRENT USE 02/25/2018 REMY TREVIZO STEVEDORING SUPERINTENDENT Ot 273.4 OYVYB-3-KRLOSYEEXCL DEFICIENCY 02/25/2018 REMY TREVIZO STEVEDORING SUPERINTENDENT Ot 280.9 IRON DEFIC ANEMIA NOS 02/25/2018 REMY TREVIZO STEVEDORING SUPERINTENDENT Ot 496 CHR AIRWAY OBSTRUCT NEC 02/25/2018 REMY TREVIZO STEVEDORING SUPERINTENDENT Ot 626.2 EXCESSIVE MENSTRUATION 02/25/2018 TREVIZOREMY Beasley STEVEDORING SUPERINTENDENT Ot V58.69 OTH MED,LT,CURRENT USE 02/25/2018 LOIS SANDERS DO Ot 273.4 DPKMB-7-TLENCNQUPXA DEFICIENCY 02/25/2018 LOIS SANDERS DO Ot 518.83 CHRONIC RESPIRATORY FAILURE 02/25/2018 LOIS SANDERS DO Ot 786.05 SHORTNESS OF BREATH 02/25/2018 ANKITA TAM DO Ot V76.12 OTH SCREEN MAMMO-MALIGN NEOPLASM OF [place]RI[place] 02/25/2018 ERNESTO CAMPBELL Ot 273.4 FORSH-1-MDECWMVKUGU DEFICIENCY 02/25/2018 ERNESTO CAMPBELL Ot 280.9 IRON DEFIC ANEMIA NOS 02/25/2018 ERNESTO CAMPBELL Ot 496 CHR AIRWAY OBSTRUCT NEC 02/25/2018 ERNESTO CAMPBELL Ot 626.2 EXCESSIVE MENSTRUATION 02/25/2018 ERNESTO CAMPBELL Ot V58.69 OTH MED,LT,CURRENT USE 02/25/2018 Ot 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 02/25/2018 Ot 280.8 IRON DEFIC ANEMIA NEC 02/25/2018 Ot 496 CHR AIRWAY OBSTRUCT NEC 02/25/2018 Ot 585.3 CHRONIC KIDNEY DISEASE, STAGE III (MODER 02/25/2018 Ot 626.2 EXCESSIVE MENSTRUATION 02/25/2018 Ot V58.69 OTH MED,LT, CURRENT USE 02/25/2018 Ot 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 02/25/2018 Ot 280.9 IRON DEFIC ANEMIA NOS 02/25/2018 Ot 401.9 HYPERTENSION NOS 02/25/2018 Ot 496 CHR AIRWAY OBSTRUCT NEC 02/25/2018 AYDEN GUZMAN, ARANZA Sawyer Ot 273.4 BBOUC-0-LEQJWKJHYRI DEFICIENCY 02/25/2018 REMY TREVIZO STEVEDORING SUPERINTENDENT Ot 273.4 PFLCT-7-CXGBQJNDBPV DEFICIENCY 02/25/2018 REMY TREVIZO STEVEDORING SUPERINTENDENT Ot 280.9 IRON DEFIC ANEMIA NOS 02/25/2018 REMY TREVIZO STEVEDORING SUPERINTENDENT Ot 401.9 HYPERTENSION NOS 02/25/2018 REMY TREVIZO STEVEDORING SUPERINTENDENT Ot 496 CHR AIRWAY OBSTRUCT NEC 02/25/2018 REMY TREVIZO STEVEDORING SUPERINTENDENT Ot 585.3 CHRONIC KIDNEY DISEASE, STAGE III (MODER 02/25/2018 REMY TREVIZOP Ot V58.69 OTH MED,LT,CURRENT USE 02/25/2018 ERNESTO CAMPBELL Ot D50.9 IRON DEFICIENCY ANEMIA, UNSPECIFIED 02/25/2018 ANKITA TAM DO Ot Z12.31 ENCNTR SCREEN MAMMOGRAM FOR MALIGNANT NE 02/25/2018 ANKITA TAM DO Ot N91.2 AMENORRHEA, UNSPECIFIED 02/25/2018 REMY TREVIZOP Ot D50.9 IRON DEFICIENCY ANEMIA, UNSPECIFIED 02/25/2018 REMY TREVIZOP Ot E88.01 JDECW-9-MAHMRSVMZMW DEFICIENCY 02/25/2018 REMY TREVIZO STEVEDORING SUPERINTENDENT Ot I12.9 HYPERTENSIVE CHRONIC KIDNEY DISEASE W ST 02/25/2018 REMY TREVIZO STEVEDORING SUPERINTENDENT Ot J44.9 CHRONIC OBSTRUCTIVE PULMONARY DISEASE, U 02/25/2018 REMY TREVIZOP Ot N18.9 CHRONIC KIDNEY DISEASE, UNSPECIFIED 02/25/2018 REMY TREVIZO STEVEDORING SUPERINTENDENT Ot Z79.899 OTHER RADIATION MONITOR (CURRENT) DRUG THERAPY 02/25/2018 REMY TREVIZO STEVEDORING SUPERINTENDENT Ot D50.9 IRON DEFICIENCY ANEMIA, UNSPECIFIED 02/25/2018 LOIS SANDERS DO Ot E88.01 GCADH-3-XEOXONRLIEK DEFICIENCY 02/25/2018 LOIS SANDERS DO Ot F41.9 ANXIETY DISORDER, UNSPECIFIED 02/25/2018 LOIS SANDERS DO Ot J45.909 UNSPECIFIED ASTHMA, UNCOMPLICATED 02/25/2018 LOIS SANDERS DO Ot R06.02 SHORTNESS OF BREATH 02/25/2018 LOIS SANDERS DO Ot R09.02 HYPOXEMIA 02/25/2018 LOIS SANDERS DO Ot R09.02 HYPOXEMIA 02/25/2018 MARIO ANDERSON APRN Ot J40 BRONCHITIS, NOT SPECIFIED ACUTE OR CH 02/25/2018 MARIO ANDERSON APRN Ot J96.10 CHRONIC RESPIRATORY FAILURE, UNSP W HYPO 02/25/2018 MARIO ANDERSON APRN Ot D50.9 IRON DEFICIENCY ANEMIA, UNSPECIFIED 02/25/2018 MARIO ANDERSON APRN Ot E88.01 KVITN-7-BPAEHUMZUJG DEFICIENCY 02/25/2018 MARIO ANDERSON APRN Ot I12.9 HYPERTENSIVE CHRONIC KIDNEY DISEASE W ST 02/25/2018 MARIO ANDERSON APRN Ot J44.9 CHRONIC OBSTRUCTIVE PULMONARY DISEASE, U 02/25/2018 MARIO ANDERSON APRN Ot N18.9 CHRONIC KIDNEY DISEASE, UNSPECIFIED 02/25/2018 MARIO ANDERSON APRN Ot Z79.899 OTHER RADIATION MONITOR (CURRENT) DRUG THERAPY 02/25/2018 MARIO ANDERSON APRN Ot E66.01 MORBID (SEVERE) OBESITY DUE TO EXCESS CA 02/25/2018 MARIO ANDERSON APRN Ot E88.01 FHBDE-4-LYSDTZXEROB DEFICIENCY 02/25/2018 MARIO ANDERSON APRN Ot J45.909 UNSPECIFIED ASTHMA, UNCOMPLICATED 02/25/2018 MARIO ANDERSON APRN Ot J96.10 CHRONIC RESPIRATORY FAILURE, UNSP W HYPO 02/25/2018 MARIO ANDERSON APRN Ot Z68.43 BODY MASS INDEX (BMI) 50-59.9 , ADULT 02/25/2018 MARIO ANDERSON APRN Ot R06.02 SHORTNESS OF BREATH 02/25/2018 LOIS SANDERS DO Ot E66.01 MORBID (SEVERE) OBESITY DUE TO EXCESS CA 02/25/2018 LOIS SANDERS DO, Ot E88.01 XSJYT-2-FDTTBVAJWOH DEFICIENCY 02/25/2018 LOIS SANDERS DO, Ot J43.2 CENTRILOBULAR EMPHYSEMA 02/25/2018 LOIS SANDERS DO, Ot J45.909 UNSPECIFIED ASTHMA, UNCOMPLICATED 02/25/2018 LOIS SANDERS DO, Ot J96.10 CHRONIC RESPIRATORY FAILURE, UNSP W HYPO 02/25/2018 ERNESTO CAMPBELL Ot D50.9 IRON DEFICIENCY ANEMIA, UNSPECIFIED 02/25/2018 ERNESTO CAMPBELL Ot E88.01 BDZYA-8-XRPAROCTUHN DEFICIENCY 02/25/2018 ERNESTO CAMPBELL Ot I12.9 HYPERTENSIVE CHRONIC KIDNEY DISEASE W ST 02/25/2018 ERNESTO CAMPBELL Ot J44.9 CHRONIC OBSTRUCTIVE PULMONARY DISEASE, U 02/25/2018 ERNESTO CAMPBELL Ot N18.9 CHRONIC KIDNEY DISEASE, UNSPECIFIED 02/25/2018 ERNESTO CAMPBELL Ot Z79.899 OTHER JAIL (CURRENT) DRUG THERAPY 02/25/2018 LOIS SANDERS DO, Ot E66.01 MORBID (SEVERE) OBESITY DUE TO EXCESS CA 02/25/2018 LOIS SANDERS DO, Ot E88.01 UNNJO-6-CIGAVZVPIOD DEFICIENCY 02/25/2018 LOIS SANDERS DO, Ot J45.909 UNSPECIFIED ASTHMA, UNCOMPLICATED 02/25/2018 LOIS SANDERS DO, Ot J96.10 CHRONIC RESPIRATORY FAILURE, UNSP W HYPO 03/04/2018 LOIS SANDERS DO, Ot E66.01 MORBID (SEVERE) OBESITY DUE TO EXCESS CA 03/04/2018 LOIS SANDERS DO, Ot E88.01 ZGJRY-9-VNADJIAUSUF DEFICIENCY 03/04/2018 LOIS SANDERS DO, Ot J45.909 UNSPECIFIED ASTHMA, UNCOMPLICATED 03/04/2018 LOIS SANDERS DO, Ot J96.10 CHRONIC RESPIRATORY FAILURE, UNSP W HYPO 03/04/2018 LOIS SANDERS DO, Ot E88.01 HEOCE-5-DXHQEADVIXC DEFICIENCY 03/04/2018 LOIS SANDERS DO, Ot E88.01 FFLUM-3-NXSLJVJHNOT DEFICIENCY 03/09/2018 LOIS SANDERS DO, Ot E66.01 MORBID (SEVERE) OBESITY DUE TO EXCESS CA 03/09/2018 LOIS SANDERS DO Ot E88.01 XBWTV-2-PKPVUEAQMPU DEFICIENCY 03/09/2018 LOIS SANDERS DO Ot J45.909 UNSPECIFIED ASTHMA, UNCOMPLICATED 03/09/2018 LOIS SANDERS DO Ot J96.10 CHRONIC RESPIRATORY FAILURE, UNSP W HYPO 03/09/2018 LOIS SANDERS DO Ot E66.01 MORBID (SEVERE) OBESITY DUE TO EXCESS CA 03/09/2018 LOIS SANDERS DO Ot E88.01 BGGKS-0-PGZEYIKYHQP DEFICIENCY 03/09/2018 LOIS SANDERS DO Ot J45.909 UNSPECIFIED ASTHMA, UNCOMPLICATED 03/09/2018 LOIS SANDERS DO Ot J96.10 CHRONIC RESPIRATORY FAILURE, UNSP W HYPO 03/11/2018 LOIS SANDERS DO Ot E66.01 MORBID (SEVERE) OBESITY DUE TO EXCESS CA 03/11/2018 LOIS SANDERS DO Ot E88.01 ATQML-3-UCCBLDGUWAP DEFICIENCY 03/11/2018 LOIS SANDERS DO Ot J45.909 UNSPECIFIED ASTHMA, UNCOMPLICATED 03/11/2018 LOIS SANDERS DO Ot J96.10 CHRONIC RESPIRATORY FAILURE, UNSP W HYPO 03/11/2018 LOIS SANDERS DO Ot E88.01 RPVTL-9-WLUDHAYZBQY DEFICIENCY 03/16/2018 LOIS SANDERS DO Ot E66.01 MORBID (SEVERE) OBESITY DUE TO EXCESS CA 03/16/2018 LOIS SANDERS DO Ot E88.01 RWWDB-3-BMFYMSZJXER DEFICIENCY 03/16/2018 LOIS SANDERS DO Ot J45.909 UNSPECIFIED ASTHMA, UNCOMPLICATED 03/16/2018 LOIS SANDERS DO Ot J96.10 CHRONIC RESPIRATORY FAILURE, UNSP W HYPO 03/18/2018 LOIS SANDERS DO Ot E66.01 MORBID (SEVERE) OBESITY DUE TO EXCESS CA 03/18/2018 LOIS SANDERS DO Ot E88.01 ANVGI-2-LLDGZNDLQWW DEFICIENCY 03/18/2018 LOIS SANDERS DO Ot J45.909 UNSPECIFIED ASTHMA, UNCOMPLICATED 03/18/2018 LOIS SANDERS DO Ot J96.10 CHRONIC RESPIRATORY FAILURE, UNSP W HYPO 03/20/2018 ERNESTO CAMPBELL Long Ot 273.4 VDSRX-4-GDPEZHBNMSK DEFICIENCY 03/20/2018 ADRIAN ERNESTO Alves Ot 280.9 IRON DEFIC ANEMIA NOS 03/20/2018 ADRIAN ERNESTO Alves Ot 496 CHR AIRWAY OBSTRUCT NEC 03/20/2018 ERNESTO CAMPBELL Long Ot 626.2 EXCESSIVE MENSTRUATION 03/20/2018 ERNESTO CAMPBELL Long Ot V58.69 OTH MED,LT,CURRENT USE 03/20/2018 MARIO ANDERSON ORDINARY SEAMAN Ot D50.9 IRON DEFICIENCY ANEMIA, UNSPECIFIED 03/20/2018 MARIO ANDERSON ORDINARY SEAMAN Ot E88.01 CMVLJ-4-GHVICPSUNUU DEFICIENCY 03/20/2018 MARIO ANDERSON ORDINARY SEAMAN Ot I12.9 HYPERTENSIVE CHRONIC KIDNEY DISEASE W ST 03/20/2018 MARIO ANDERSON ORDINARY SEAMAN Ot J44.9 CHRONIC OBSTRUCTIVE PULMONARY DISEASE, U 03/20/2018 MARIO ANDERSON ORDINARY SEAMAN Ot N18.9 CHRONIC KIDNEY DISEASE, UNSPECIFIED 03/20/2018 MARIO ANDERSON ORDINARY SEAMAN Ot Z79.899 OTHER RADIATION MONITOR (CURRENT) DRUG THERAPY 03/20/2018 MEL CAMPBELLVIRI Alves Ot D50.9 IRON DEFICIENCY ANEMIA, UNSPECIFIED 03/20/2018 ADRIANERNESTO Ot E88.01 WZZZB-5-STXWQIAIWEX DEFICIENCY 03/20/2018 ADRIAN ERNESTO Alves Ot I12.9 HYPERTENSIVE CHRONIC KIDNEY DISEASE W ST 03/20/2018 ADRIAN, ERNESTO Alves Ot J44.9 CHRONIC OBSTRUCTIVE PULMONARY DISEASE, U 03/20/2018 ADRIAN ERNESTO Alves Ot N18.9 CHRONIC KIDNEY DISEASE, UNSPECIFIED 03/20/2018 ADRIAN ERNESTO Alves Ot Z79.899 OTHER JAIL (CURRENT) DRUG THERAPY 03/20/2018 MILY DO, TAMMY K Ot E66.9 OBESITY, UNSPECIFIED 03/20/2018 MILY DO, TAMMY K Ot E78.00 PURE HYPERCHOLESTEROLEMIA, UNSPECIFIED 03/20/2018 MILY DO, TAMMY K Ot E88.01 JRBXW-1-FCEUVMMSDAR DEFICIENCY 03/20/2018 MILY DO, TAMMY K Ot F32.9 MAJOR DEPRESSIVE DISORDER, SINGLE EPISOD 03/20/2018 MILY DO, TAMMY K Ot F41.9 ANXIETY DISORDER, UNSPECIFIED 03/20/2018 TAMMY MINOR DO Ot I10 ESSENTIAL (PRIMARY) HYPERTENSION 03/20/2018 TAMYM MINOR DO Ot J44.9 CHRONIC OBSTRUCTIVE PULMONARY DISEASE, U 03/20/2018 TAMMY MINOR DO Ot R05 COUGH 03/20/2018 TMAMY MINOR DO Ot Z68.43 BODY MASS INDEX (BMI) 50-59.9, ADULT 03/20/2018 TAMMY MINOR DO Ot Z79.51 RADIATION MONITOR (CURRENT) USE OF INHALED STERO 03/20/2018 TAMMY MINOR DO Ot Z79.52 RADIATION MONITOR (CURRENT) USE OF SYSTEMIC STER 03/20/2018 TAMMY MINOR DO Ot Z82.49 FAMILY HX OF ISCHEM HEART DIS AND OTH DI 03/20/2018 TAMMY MINOR DO Ot Z87.01 PERSONAL HISTORY OF PNEUMONIA (RECURRENT 03/20/2018 TAMMY MINOR DO Ot Z87.891 PERSONAL HISTORY OF NICOTINE DEPENDENCE 03/20/2018 TAMMY MINOR DO Ot Z88.0 ALLERGY STATUS TO PENICILLIN 03/20/2018 TAMMY MINOR DO Ot Z98.51 TUBAL LIGATION STATUS 03/20/2018 TAMMY MINOR DO Ot Z98.890 OTHER SPECIFIED POSTPROCEDURAL STATES 03/20/2018 TAMMY MINOR DO Ot Z99.81 DEPENDENCE ON SUPPLEMENTAL OXYGEN 03/22/2018 TAMMY MINOR DO Ot E66.9 OBESITY, UNSPECIFIED 03/22/2018 TAMMY MINOR DO Ot E78.00 PURE HYPERCHOLESTEROLEMIA, UNSPECIFIED 03/22/2018 MILY TAMMY OCAMPO Ot E88.01 XDOVL-8-JBIXGUAAVDY DEFICIENCY 03/22/2018 TAMMY MINOR DO Ot F32.9 MAJOR DEPRESSIVE DISORDER, SINGLE EPISOD 03/22/2018 TAMMY MINOR DO Ot F41.9 ANXIETY DISORDER, UNSPECIFIED 03/22/2018 TAMMY MINOR DO Ot I10 ESSENTIAL (PRIMARY) HYPERTENSION 03/22/2018 TAMMY MINOR DO Ot J44.9 CHRONIC OBSTRUCTIVE PULMONARY DISEASE, U 03/22/2018 TAMMY MINOR DO Ot R05 COUGH 03/22/2018 TAMMY MINOR DO Ot Z68.43 BODY MASS INDEX (BMI) 50-59.9, ADULT 03/22/2018 MILY OCAMPOSLADEA Maritza Ot Z79.51 JAIL (CURRENT) USE OF INHALED STERO 03/22/2018 MILY OCAMPOSLADEA Maritza Ot Z79.52 JAIL (CURRENT) USE OF SYSTEMIC STER 03/22/2018 MILY OCAMPOSLADEA Maritza Ot Z82.49 FAMILY HX OF ISCHEM HEART DIS AND OTH DI 03/22/2018 MILY OCAMPO TAMMY Mraitza Ot Z87.01 PERSONAL HISTORY OF PNEUMONIA (RECURRENT 03/22/2018 MILY OCAMPOSLADEA Maritza Ot Z87.891 PERSONAL HISTORY OF NICOTINE DEPENDENCE 03/22/2018 MILY OCAMPOTAMMY Ot Z88.0 ALLERGY STATUS TO PENICILLIN 03/22/2018 MILY DOTAMMY Ot Z98.51 TUBAL LIGATION STATUS 03/22/2018 MILY OCAMPO TAMMY Maritza Ot Z98.890 OTHER SPECIFIED POSTPROCEDURAL STATES 03/22/2018 TAMMY MINOR DO Ot Z99.81 DEPENDENCE ON SUPPLEMENTAL OXYGEN 03/25/2018 LOIS SANDERS DO Ot E88.01 UKCPN-7-MSRWZZUSOXK DEFICIENCY 03/29/2018 ERNESTO CAMPBELL Ot 273.4 KHCMZ-6-RTVPHFNUNQF DEFICIENCY 03/29/2018 ERNESTO CAMPBELL Ot 280.9 IRON DEFIC ANEMIA NOS 03/29/2018 ENRESTO CAMPBELL Ot 496 CHR AIRWAY OBSTRUCT NEC 03/29/2018 ERNESTO CAMPBELL Ot 626.2 EXCESSIVE MENSTRUATION 03/29/2018 ERNESTO CAMPBELL Ot V58.69 OTH MED,LT,CURRENT USE 03/29/2018 MARIO ANDERSON APRN Ot D50.9 IRON DEFICIENCY ANEMIA, UNSPECIFIED 03/29/2018 MARIO ANDERSON APRN Ot E88.01 EKMJB-9-WXHWYOWGVQM DEFICIENCY 03/29/2018 MRAIO ANDERSON APRN Ot I12.9 HYPERTENSIVE CHRONIC KIDNEY DISEASE W ST 03/29/2018 MARIO ANDERSON APRN Ot J44.9 CHRONIC OBSTRUCTIVE PULMONARY DISEASE, U 03/29/2018 MARIO ANDERSON APRN Ot N18.9 CHRONIC KIDNEY DISEASE, UNSPECIFIED 03/29/2018 MARIO ANDERSON APRN Ot Z79.899 OTHER JAIL (CURRENT) DRUG THERAPY 03/29/2018 ERNESTO CAMPBELL Ot D50.9 IRON DEFICIENCY ANEMIA, UNSPECIFIED 03/29/2018 ERNESTO CAMPBELL Long Ot E88.01 FBDBO-0-FQFBIDBTHGA DEFICIENCY 03/29/2018 ERNESTO CAMPBELL Ot I12.9 HYPERTENSIVE CHRONIC KIDNEY DISEASE W ST 03/29/2018 ERNESTO CAMPBELL Long Ot J44.9 CHRONIC OBSTRUCTIVE PULMONARY DISEASE, U 03/29/2018 ERNESTO CAMPBELL Long Ot N18.9 CHRONIC KIDNEY DISEASE, UNSPECIFIED 03/29/2018 ERNESTO CAMPBELL Ot Z79.899 OTHER RADIATION MONITOR (CURRENT) DRUG THERAPY 04/01/2018 LOIS SANDERS DO, Ot E88.01 SKGZR-5-XADWBCJTFCY DEFICIENCY 04/01/2018 LOIS SANDERS DO, Ot E88.01 AMIWE-0-BIRVTVHUNLW DEFICIENCY 04/01/2018 LOIS SANDERS DO, Ot E66.01 MORBID (SEVERE) OBESITY DUE TO EXCESS CA 04/01/2018 LOIS SANDERS DO Ot E88.01 CVTOV-1-SSRFYMJLOLC DEFICIENCY 04/01/2018 LOIS SANDERS DO, Ot J45.909 UNSPECIFIED ASTHMA, UNCOMPLICATED 04/01/2018 LOIS SANDERS DO, Ot J96.10 CHRONIC RESPIRATORY FAILURE, UNSP W HYPO 04/06/2018 LOIS SANDERS DO Ot E66.01 MORBID (SEVERE) OBESITY DUE TO EXCESS CA 04/06/2018 LOIS SANDERS DO, Ot E88.01 PUSBV-7-VVUCEEEFLWF DEFICIENCY 04/06/2018 LOIS SANDERS DO, Ot J45.909 UNSPECIFIED ASTHMA, UNCOMPLICATED 04/06/2018 LOIS SANDERS DO Ot J96.10 CHRONIC RESPIRATORY FAILURE, UNSP W HYPO 04/06/2018 LOIS SANDERS DO, Ot E88.01 AZOAM-9-KEXROLOAHGH DEFICIENCY 04/06/2018 LOIS SANDERS DO Ot E88.01 IFYFM-6-RLPULQFXAYG DEFICIENCY 04/06/2018 LOIS SANDERS DO Ot E66.01 MORBID (SEVERE) OBESITY DUE TO EXCESS CA 04/06/2018 LOIS SANDERS DO, Ot E88.01 JPGOE-4-UAUOOYVSWTT DEFICIENCY 04/06/2018 LOIS SANDERS DO, Ot J45.909 UNSPECIFIED ASTHMA, UNCOMPLICATED 04/06/2018 LOIS SANDERS DO, Ot J96.10 CHRONIC RESPIRATORY FAILURE, UNSP W HYPO 04/08/2018 LOIS SANDERS DO Ot E66.01 MORBID (SEVERE) OBESITY DUE TO EXCESS CA 04/08/2018 LOIS SANDERS DO, Ot E88.01 YCEAF-7-ZQRXFPSVTLV DEFICIENCY 04/08/2018 LOIS SANDERS DO, Ot J45.909 UNSPECIFIED ASTHMA, UNCOMPLICATED 04/08/2018 LOIS SANDERS DO, Ot J96.10 CHRONIC RESPIRATORY FAILURE, UNSP W HYPO 04/13/2018 LOIS SANDERS DO, Ot E66.01 MORBID (SEVERE) OBESITY DUE TO EXCESS CA 04/13/2018 LOIS SANDERS DO, Ot E88.01 AOLUL-9-IGUDDDXRBSW DEFICIENCY 04/13/2018 LOIS SANDERS DO, Ot J45.909 UNSPECIFIED ASTHMA, UNCOMPLICATED 04/13/2018 LOIS SANDERS DO, Ot J96.10 CHRONIC RESPIRATORY FAILURE, UNSP W HYPO 04/13/2018 LOIS SANDERS DO, Ot E88.01 EPZGZ-6-YBOJRATCWNM DEFICIENCY 04/13/2018 LOIS SANDERS DO, Ot E66.01 MORBID (SEVERE) OBESITY DUE TO EXCESS CA 04/13/2018 LOIS ASNDERS DO Ot E88.01 TBDXX-7-ZWQVKKETYNW DEFICIENCY 04/13/2018 LOIS SANDERS DO, Ot J45.909 UNSPECIFIED ASTHMA, UNCOMPLICATED 04/13/2018 LOIS SANDERS DO, Ot J96.10 CHRONIC RESPIRATORY FAILURE, UNSP W HYPO 04/13/2018 LOIS SANDERS DO Ot E88.01 SQGMU-1-TAWBWVXRZQD DEFICIENCY 04/22/2018 LOIS SANDERS DO Ot E66.01 MORBID (SEVERE) OBESITY DUE TO EXCESS CA 04/22/2018 LOIS SANDERS DO Ot E88.01 IEEPQ-0-JRGSTFUQOXI DEFICIENCY 04/22/2018 LOIS SANDERS DO, Ot J45.909 UNSPECIFIED ASTHMA, UNCOMPLICATED 04/22/2018 LOIS SANDERS DO, Ot J96.10 CHRONIC RESPIRATORY FAILURE, UNSP W HYPO 04/22/2018 LOIS SANDERS DO Ot E88.01 JONMG-2-WCSDHINZAJX DEFICIENCY 04/22/2018 LOIS SANDERS DO Ot E88.01 AUFEC-4-AIEVWZORDZR DEFICIENCY 04/27/2018 LOIS SANDERS DO Ot E66.01 MORBID (SEVERE) OBESITY DUE TO EXCESS CA 04/27/2018 LOIS SANDERS DO Ot E88.01 LWTUB-0-PXWKVYMZZFP DEFICIENCY 04/27/2018 LOIS SANDERS DO Ot J45.909 UNSPECIFIED ASTHMA, UNCOMPLICATED 04/27/2018 LOIS SANDERS DO Ot J96.10 CHRONIC RESPIRATORY FAILURE, UNSP W HYPO 04/29/2018 LOIS SANDERS DO Ot E66.01 MORBID (SEVERE) OBESITY DUE TO EXCESS CA 04/29/2018 LOIS SANDERS DO Ot E88.01 TZIBR-4-CWCMFNHNTCQ DEFICIENCY 04/29/2018 LOIS SANDERS DO Ot J45.909 UNSPECIFIED ASTHMA, UNCOMPLICATED 04/29/2018 LOIS SANDERS DO Ot J96.10 CHRONIC RESPIRATORY FAILURE, UNSP W HYPO 05/04/2018 LOIS SANDERS DO Ot E66.01 MORBID (SEVERE) OBESITY DUE TO EXCESS CA 05/04/2018 LOIS SANDERS DO Ot E88.01 UGCPB-1-XZCDDLRFXAE DEFICIENCY 05/04/2018 LOIS SANDERS DO Ot J45.909 UNSPECIFIED ASTHMA, UNCOMPLICATED 05/04/2018 LOIS SANDERS DO Ot J96.10 CHRONIC RESPIRATORY FAILURE, UNSP W HYPO 05/11/2018 LOIS SANDERS DO Ot E66.01 MORBID (SEVERE) OBESITY DUE TO EXCESS CA 05/11/2018 LOIS SANDERS DO Ot E88.01 [id number]-1-MIATTMVVCAJ DEFICIENCY 05/11/2018 LOIS SANDERS DO Ot J45.909 UNSPECIFIED ASTHMA, UNCOMPLICATED 05/11/2018 LOIS SANDERS DO Ot J96.10 CHRONIC RESPIRATORY FAILURE, [facility] 05/25/2018 LOIS SANDERS DO Ot E66.01 MORBID (SEVERE) OBESITY DUE TO EXCESS CA 05/25/2018 LOIS SANDERS DO Ot E88.01 [id number]-0-[id number] DEFICIENCY 05/25/2018 LOIS SANDERS DO Ot J45.909 UNSPECIFIED ASTHMA, UNCOMPLICATED 05/25/2018 LOIS SANDERS DO Ot J96.10 CHRONIC RESPIRATORY FAILURE, UNSP W HYPO Procedures Code Description Performed By Performed On 33.24 ENDOSCOPIC BRONCHIAL BX 08/01/2011 69086 OXIMETRY 03/10/2013 73732 OXIMETRY 06/02/2014 Results Test Result Range Complete blood count (CBC) with automated white blood cell (WBC) differential - 01/28/16 20:30 Blood leukocytes automated count (number/volume) 7.7 10*3/uL 4.3-11.0 Blood erythrocytes automated count (number/volume) 4.88 10*6/uL 4.35-5.85 Venous blood hemoglobin measurement (mass/volume) 14.4 g/dL 11.5-16.0 Blood hematocrit (volume fraction) 43 % 35-52 Automated erythrocyte mean corpuscular volume 88 [foz_us] 80-99 Automated erythrocyte mean corpuscular hemoglobin (mass per erythrocyte) 30 pg 25-34 Automated erythrocyte mean corpuscular hemoglobin concentration measurement ( mass/volume) 34 g/dL 32-36 Automated erythrocyte distribution width ratio 13.7 % 10.0-14.5 Automated blood platelet count (count/volume) 170 10*3/uL 130-400 Automated blood platelet mean volume measurement 11.1 [foz_us] 7.4-10.4 Automated blood neutrophils/100 leukocytes 55 % 42-75 Automated blood lymphocytes/100 leukocytes 23 % 12-44 Blood monocytes/100 leukocytes 14 % 0-12 Automated blood eosinophils/100 leukocytes 8 % 0-10 Automated blood basophils/100 leukocytes 1 % 0-10 Blood neutrophils automated count (number/volume) 4.2 10*3 1.8-7.8 Blood lymphocytes automated count (number/volume) 1.8 10*3 1.0-4.0 Blood monocytes automated count (number/volume) 1.1 10*3 0.0-1.0 Automated eosinophil count 0.6 10*3/uL 0.0-0.3 Automated blood basophil count (count/volume) 0.1 10*3/uL 0.0-0.1 Fibrin D-dimer FEU measurement in platelet poor plasma (mass/volume) - 20:30 Fibrin D-dimer FEU measurement in platelet poor plasma (mass/volume) 0.87 ug/mL 0.00-0.49 Comprehensive metabolic panel - 01/28/16 20:30 Serum or plasma sodium measurement (moles/volume) 141 mmol/L 135-145 Serum or plasma potassium measurement (moles/volume) 3.9 mmol/L 3.6-5.0 Serum or plasma chloride measurement (moles/volume) 105 mmol/L 98-107 Carbon dioxide 27 mmol/L 21-32 Serum or plasma anion gap determination (moles/volume) 9 mmol/L 5-14 Serum or plasma urea nitrogen measurement (mass/volume) 18 mg/dL 7-18 Serum or plasma creatinine measurement (mass/volume) 0.77 mg/dL 0.60-1.30 Serum or plasma urea nitrogen/creatinine mass ratio 23 NRG Serum or plasma creatinine measurement with calculation of estimated glomerular filtration rate > NRG Serum or plasma glucose measurement (mass/volume) 92 mg/dL 70-105 Serum or plasma calcium measurement (mass/volume) 9.6 mg/dL 8.5-10.1 Serum or plasma total bilirubin measurement (mass/volume) 0.4 mg/dL 0.1-1.0 Serum or plasma alkaline phosphatase measurement (enzymatic activity/volume) 142 U/L 40-136 Serum or plasma aspartate aminotransferase measurement (enzymatic activity/ volume) 19 U/L 5-34 Serum or plasma alanine aminotransferase measurement (enzymatic activity/volume ) 23 U/L 0-55 Serum or plasma protein measurement (mass/volume) 6.9 g/dL 6.4-8.2 Serum or plasma albumin measurement (mass/volume) 3.9 g/dL 3.2-4.5 Magnesium - 01/28/16 20:30 Magnesium 1.9 mg/dL 1.8-2.4 Serum or plasma troponin i.cardiac measurement (mass/volume) - 01/28/16 20:30 Serum or plasma troponin i.cardiac measurement (mass/volume) < ng/ mL <0.30 Serum or plasma lithium measurement (moles/volume) - 01/28/16 20:30 BNP level 48.2 pg/mL <100.0 Lipase - 01/28/16 20:30 Lipase 38 U/L 8-78 THYROID STIMULATING HORMONE - 01/28/16 20:30 THYROID STIMULATING HORMONE 4.70 u[iU]/mL 0.35-4.94 Urine drug screening test - 01/28/16 21:19 Urine phencyclidine detection by screening method NEGATIVE NEGATIVE Urine benzodiazepines detection by screening method POSITIVE NEGATIVE Urine cocaine detection NEGATIVE NEGATIVE Urine amphetamines detection by screening method NEGATIVE NEGATIVE Urine methamphetamine detection by screening method NEGATIVE NEGATIVE Urine cannabinoids detection by screening method NEGATIVE NEGATIVE Urine opiates detection by screening method NEGATIVE NEGATIVE Urine barbiturates detection NEGATIVE NEGATIVE Screening urine tricyclic antidepressants detection NEGATIVE NEGATIVE Urine methadone detection by screening method NEGATIVE NEGATIVE Urine oxycodone detection NEGATIVE NEGATIVE Urine propoxyphene detection NEGATIVE NEGATIVE Serum or plasma C reactive protein measurement (mass/volume) - 07/07/17 14:54 Serum or plasma C reactive protein measurement (mass/volume) 1.82 mg /dL 0.00-0.50 Complete blood count (CBC) with automated white blood cell (WBC) differential - 07/07/17 14:56 Blood leukocytes automated count (number/volume) 5.3 10*3/uL 4.3-11.0 Blood erythrocytes automated count (number/volume) 4.67 10*6/uL 4.35-5.85 Venous blood hemoglobin measurement (mass/volume) 13.7 g/dL 11.5-16.0 Blood hematocrit (volume fraction) 42 % 35-52 Automated erythrocyte mean corpuscular volume 89 [foz_us] 80-99 Automated erythrocyte mean corpuscular hemoglobin (mass per erythrocyte) 29 pg 25-34 Automated erythrocyte mean corpuscular hemoglobin concentration measurement ( mass/volume) 33 g/dL 32-36 Automated erythrocyte distribution width ratio 13.8 % 10.0-14.5 Automated blood platelet count (count/volume) 149 10*3/uL 130-400 Automated blood platelet mean volume measurement 10.7 [foz_us] 7.4-10.4 Automated blood neutrophils/100 leukocytes 56 % 42-75 Automated blood lymphocytes/100 leukocytes 19 % 12-44 Blood monocytes/100 leukocytes 19 % 0-12 Automated blood eosinophils/100 leukocytes 5 % 0-10 Automated blood basophils/100 leukocytes 1 % 0-10 Blood neutrophils automated count (number/volume) 3.0 10*3 1.8-7.8 Blood lymphocytes automated count (number/volume) 1.0 10*3 1.0-4.0 Blood monocytes automated count (number/volume) 1.0 10*3 0.0-1.0 Automated eosinophil count 0.3 10*3/uL 0.0-0.3 Automated blood basophil count (count/volume) 0.1 10*3/uL 0.0-0.1 Comprehensive metabolic panel - 07/07/17 14:56 Serum or plasma sodium measurement (moles/volume) 138 mmol/L 135-145 Serum or plasma potassium measurement (moles/volume) 4.3 mmol/L 3.6-5.0 Serum or plasma chloride measurement (moles/volume) 101 mmol/L 98-107 Carbon dioxide 29 mmol/L 21-32 Serum or plasma anion gap determination (moles/volume) 8 mmol/L 5-14 Serum or plasma urea nitrogen measurement (mass/volume) 15 mg/dL 7-18 Serum or plasma creatinine measurement (mass/volume) 0.66 mg/dL 0.60-1.30 Serum or plasma urea nitrogen/creatinine mass ratio 23 NRG Serum or plasma creatinine measurement with calculation of estimated glomerular filtration rate > NRG Serum or plasma glucose measurement (mass/volume) 96 mg/dL 70-105 Serum or plasma calcium measurement (mass/volume) 9.5 mg/dL 8.5-10.1 Serum or plasma total bilirubin measurement (mass/volume) 0.6 mg/dL 0.1-1.0 Serum or plasma alkaline phosphatase measurement (enzymatic activity/volume) 120 U/L 40-136 Serum or plasma aspartate aminotransferase measurement (enzymatic activity/ volume) 17 U/L 5-34 Serum or plasma alanine aminotransferase measurement (enzymatic activity/volume ) 19 U/L 0-55 Serum or plasma protein measurement (mass/volume) 7.2 g/dL 6.4-8.2 Serum or plasma albumin measurement (mass/volume) 4.0 g/dL 3.2-4.5 Blood manual differential performed detection - 07/07/17 14:56 Blood monocytes/100 leukocytes 13 % NRG Manual blood segmented neutrophils/100 leukocytes 54 % NRG Blood band neutrophils/100 leukocytes 6 % NRG Manual blood lymphocytes/100 leukocytes 19 % NRG Manual eosinophils/100 leukocytes in nose 6 % NRG Manual blood basophils/100 leukocytes 2 % NRG Blood erythrocyte morphology finding identification NORMAL NRG Influenza virus A and B antigen detection - 07/07/17 15:04 FLU RESULT NEGATIVE FOR INFLUENZA A AND B ANTIGENS BY [place] [facility] [place] Capillary blood glucose measurement by glucometer (mass/volume) - 07/07/17 20: 39 Capillary blood glucose measurement by glucometer (mass/volume) 202 mg/dL 70-110 Complete blood count (CBC) with automated white blood cell (WBC) differential - 07/08/17 05:05 Blood leukocytes automated count (number/volume) 4.2 10*3/uL 4.3-11.0 Blood erythrocytes automated count (number/volume) 4.58 10*6/uL 4.35-5.85 Venous blood hemoglobin measurement (mass/volume) 13.4 g/dL 11.5-16.0 Blood hematocrit (volume fraction) 41 % 35-52 Automated erythrocyte mean corpuscular volume 89 [foz_us] 80-99 Automated erythrocyte mean corpuscular hemoglobin (mass per erythrocyte) 29 pg 25-34 Automated erythrocyte mean corpuscular hemoglobin concentration measurement ( mass/volume) 33 g/dL 32-36 Automated erythrocyte distribution width ratio 13.8 % 10.0-14.5 Automated blood platelet count (count/volume) 142 10*3/uL 130-400 Automated blood platelet mean volume measurement 10.3 [foz_us] 7.4-10.4 Automated blood neutrophils/100 leukocytes 88 % 42-75 Automated blood lymphocytes/100 leukocytes 8 % 12-44 Blood monocytes/100 leukocytes 4 % 0-12 Automated blood eosinophils/100 leukocytes 0 % 0-10 Automated blood basophils/100 leukocytes 0 % 0-10 Blood neutrophils automated count (number/volume) 3.7 10*3 1.8-7.8 Blood lymphocytes automated count (number/volume) 0.3 10*3 1.0-4.0 Blood monocytes automated count (number/volume) 0.2 10*3 0.0-1.0 Automated eosinophil count 0.0 10*3/uL 0.0-0.3 Automated blood basophil count (count/volume) 0.0 10*3/uL 0.0-0.1 Whole blood basic metabolic panel - 07/08/17 05:05 Serum or plasma sodium measurement (moles/volume) 139 mmol/L 135-145 Serum or plasma potassium measurement (moles/volume) 4.3 mmol/L 3.6-5.0 Serum or plasma chloride measurement (moles/volume) 105 mmol/L 98-107 Carbon dioxide 25 mmol/L 21-32 Serum or plasma anion gap determination (moles/volume) 9 mmol/L 5-14 Serum or plasma urea nitrogen measurement (mass/volume) 15 mg/dL 7-18 Serum or plasma creatinine measurement (mass/volume) 0.66 mg/dL 0.60-1.30 Serum or plasma urea nitrogen/creatinine mass ratio 23 NRG Serum or plasma creatinine measurement with calculation of estimated glomerular filtration rate > NRG Serum or plasma glucose measurement (mass/volume) 139 mg/dL 70-105 Serum or plasma calcium measurement (mass/volume) 9.3 mg/dL 8.5-10.1 Arterial blood gas measurement - 07/08/17 06:55 Blood pCO2 47 mm[Hg] 35-45 Blood pO2 78 mm[Hg] 79-93 Arterial blood bicarbonate measurement (moles/volume) 29 mmol/L 23-27 Arterial blood base excess by calculation 4.6 mmol/L -2.5 -2.5 Arterial blood oxygen saturation measurement 97 % 94-100 * Inhaled oxygen flow rate 55 NRG Arterial blood pH measurement with patient temperature correction 7.41 7.37-7.43 Arterial blood carbon dioxide, total measurement (moles/volume) 30.5 mmol/L 21.0-31.0 Body site RT RADIAL NRG Assessment of wrist artery patency prior to arterial puncture YES- POS NRG Setting of ventilation mode NO NRG Measurement of body temperature 98.1 NRG Blood lactic acid measurement (moles/volume) - 07/08/17 06:55 Blood lactic acid measurement (moles/volume) 0.96 mmol/L 0.50-2.00 Serum or plasma lithium measurement (moles/volume) - 07/08/17 06:55 BNP level 85.7 pg/mL <100.0 Bacterial blood culture - 07/08/17 06:55 Bacterial blood culture NG NRG Bacterial blood culture - 07/08/17 06:58 FREE TEXT EXTERNAL SEE COMMENT NRG QUANTITY OF GROWTH Isolated NRG Bacterial blood culture [id number] NRG Bacterial blood culture - 07/08/17 07:04 Bacterial blood culture NG NRG Sputum Gram stain - 07/08/17 08:35 Sputum Gram stain Few WBC's, and mixed bacterial sandy NRG Bacterial sputum culture - 07/08/17 08:35 Bacterial sputum culture NORMAL NRG Complete urinalysis with reflex to culture - 07/08/17 09:53 Urine color determination YELLOW NRG Urine clarity determination CLEAR NRG Urine pH measurement by test strip 8 5-9 Specific gravity of urine by test strip 1.015 1.016- 1.022 Urine protein assay by test strip, semi-quantitative NEGATIVE NEGATIVE Urine glucose detection by automated test strip NEGATIVE NEGATIVE Erythrocytes detection in urine sediment by light microscopy NEGATIVE NEGATIVE Urine ketones detection by automated test strip 2+ NEGATIVE Urine nitrite detection by test strip NEGATIVE NEGATIVE Urine total bilirubin detection by test strip NEGATIVE NEGATIVE Urine urobilinogen measurement by automated test strip (mass/volume) NORMAL NORMAL Urine leukocyte esterase detection by dipstick 1+ NEGATIVE Automated urine sediment erythrocyte count by microscopy (number/high power field) RARE NRG Automated urine sediment leukocyte count by microscopy (number/high power field ) [HPF] NRG Bacteria detection in urine sediment by light microscopy NEGATIVE NRG Squamous epithelial cells detection in urine sediment by light microscopy 2-5 NRG Crystals detection in urine sediment by light microscopy NONE NRG Casts detection in urine sediment by light microscopy NONE NRG Mucus detection in urine sediment by light microscopy NEGATIVE NRG Complete urinalysis with reflex to culture NO NRG Renal epithelial cells detection in urine sediment by light microscopy NONE NRG Complete blood count (CBC) with automated white blood cell (WBC) differential - 07/09/17 03:54 Blood leukocytes automated count (number/volume) 11.2 10*3/uL 4.3-11.0 Blood erythrocytes automated count (number/volume) 4.65 10*6/uL 4.35-5.85 Venous blood hemoglobin measurement (mass/volume) 13.7 g/dL 11.5-16.0 Blood hematocrit (volume fraction) 41 % 35-52 Automated erythrocyte mean corpuscular volume 89 [foz_us] 80-99 Automated erythrocyte mean corpuscular hemoglobin (mass per erythrocyte) 30 pg 25-34 Automated erythrocyte mean corpuscular hemoglobin concentration measurement ( mass/volume) 33 g/dL 32-36 Automated erythrocyte distribution width ratio 13.8 % 10.0-14.5 Automated blood platelet count (count/volume) 171 10*3/uL 130-400 Automated blood platelet mean volume measurement 11.0 [foz_us] 7.4-10.4 Automated blood neutrophils/100 leukocytes 90 % 42-75 Automated blood lymphocytes/100 leukocytes 5 % 12-44 Blood monocytes/100 leukocytes 5 % 0-12 Automated blood eosinophils/100 leukocytes 0 % 0-10 Automated blood basophils/100 leukocytes 0 % 0-10 Blood neutrophils automated count (number/volume) 10.0 10*3 1.8-7.8 Blood lymphocytes automated count (number/volume) 0.6 10*3 1.0-4.0 Blood monocytes automated count (number/volume) 0.6 10*3 0.0-1.0 Automated eosinophil count 0.0 10*3/uL 0.0-0.3 Automated blood basophil count (count/volume) 0.0 10*3/uL 0.0-0.1 Blood manual differential performed detection - 07/09/17 03:54 Blood monocytes/100 leukocytes 2 % NRG Manual blood segmented neutrophils/100 leukocytes 94 % NRG Blood band neutrophils/100 leukocytes 0 % NRG Manual blood lymphocytes/100 leukocytes 4 % NRG Manual eosinophils/100 leukocytes in nose 0 % NRG Manual blood basophils/100 leukocytes 0 % NRG Blood erythrocyte morphology finding identification NORMAL NR Whole blood basic metabolic panel - 07/09/17 03:54 Serum or plasma sodium measurement (moles/volume) 141 mmol/L 135-145 Serum or plasma potassium measurement (moles/volume) 4.0 mmol/L 3.6-5.0 Serum or plasma chloride measurement (moles/volume) 104 mmol/L 98-107 Carbon dioxide 25 mmol/L 21-32 Serum or plasma anion gap determination (moles/volume) 12 mmol/L 5-14 Serum or plasma urea nitrogen measurement (mass/volume) 17 mg/dL 7-18 Serum or plasma creatinine measurement (mass/volume) 0.66 mg/dL 0.60-1.30 Serum or plasma urea nitrogen/creatinine mass ratio 26 NRG Serum or plasma creatinine measurement with calculation of estimated glomerular filtration rate > NRG Serum or plasma glucose measurement (mass/volume) 141 mg/dL 70-105 Serum or plasma calcium measurement (mass/volume) 9.5 mg/dL 8.5-10.1 Magnesium - 07/09/17 03:54 Magnesium 2.3 mg/dL 1.8-2.4 Whole blood basic metabolic panel - 07/10/17 06:14 Serum or plasma sodium measurement (moles/volume) 145 mmol/L 135-145 Serum or plasma potassium measurement (moles/volume) 4.0 mmol/L 3.6-5.0 Serum or plasma chloride measurement (moles/volume) 107 mmol/L 98-107 Carbon dioxide 27 mmol/L 21-32 Serum or plasma anion gap determination (moles/volume) 11 mmol/L 5-14 Serum or plasma urea nitrogen measurement (mass/volume) 22 mg/dL 7-18 Serum or plasma creatinine measurement (mass/volume) 0.67 mg/dL 0.60-1.30 Serum or plasma urea nitrogen/creatinine mass ratio 33 NRG Serum or plasma creatinine measurement with calculation of estimated glomerular filtration rate > NRG Serum or plasma glucose measurement (mass/volume) 90 mg/dL 70-105 Serum or plasma calcium measurement (mass/volume) 9.2 mg/dL 8.5-10.1 Magnesium - 07/10/17 06:14 Magnesium 2.3 mg/dL 1.8-2.4 Complete blood count (CBC) with automated white blood cell (WBC) differential - 07/10/17 06:14 Blood leukocytes automated count (number/volume) 11.4 10*3/uL 4.3-11.0 Blood erythrocytes automated count (number/volume) 4.53 10*6/uL 4.35-5.85 Venous blood hemoglobin measurement (mass/volume) 13.3 g/dL 11.5-16.0 Blood hematocrit (volume fraction) 41 % 35-52 Automated erythrocyte mean corpuscular volume 90 [foz_us] 80-99 Automated erythrocyte mean corpuscular hemoglobin (mass per erythrocyte) 29 pg 25-34 Automated erythrocyte mean corpuscular hemoglobin concentration measurement ( mass/volume) 33 g/dL 32-36 Automated erythrocyte distribution width ratio 14.3 % 10.0-14.5 Automated blood platelet count (count/volume) 201 10*3/uL 130-400 Automated blood platelet mean volume measurement 10.7 [foz_us] 7.4-10.4 Automated blood neutrophils/100 leukocytes 76 % 42-75 Automated blood lymphocytes/100 leukocytes 14 % 12-44 Blood monocytes/100 leukocytes 10 % 0-12 Automated blood eosinophils/100 leukocytes 0 % 0-10 Automated blood basophils/100 leukocytes 0 % 0-10 Blood neutrophils automated count (number/volume) 8.6 10*3 1.8-7.8 Blood lymphocytes automated count (number/volume) 1.6 10*3 1.0-4.0 Blood monocytes automated count (number/volume) 1.2 10*3 0.0-1.0 Automated eosinophil count 0.0 10*3/uL 0.0-0.3 Automated blood basophil count (count/volume) 0.0 10*3/uL 0.0-0.1 Complete blood count (CBC) with automated white blood cell (WBC) differential - 03/20/18 18:28 Blood leukocytes automated count (number/volume) 7.7 10*3/uL 4.3-11.0 Blood erythrocytes automated count (number/volume) 4.79 10*6/uL 4.35-5.85 Venous blood hemoglobin measurement (mass/volume) 14.2 g/dL 11.5-16.0 Blood hematocrit (volume fraction) 42 % 35-52 Automated erythrocyte mean corpuscular volume 87 [foz_us] 80-99 Automated erythrocyte mean corpuscular hemoglobin (mass per erythrocyte) 30 pg 25-34 Automated erythrocyte mean corpuscular hemoglobin concentration measurement ( mass/volume) 34 g/dL 32-36 Automated erythrocyte distribution width ratio 14.0 % 10.0-14.5 Automated blood platelet count (count/volume) 203 10*3/uL 130-400 Automated blood platelet mean volume measurement 10.6 [foz_us] 7.4-10.4 Automated blood neutrophils/100 leukocytes 64 % 42-75 Automated blood lymphocytes/100 leukocytes 20 % 12-44 Blood monocytes/100 leukocytes 12 % 0-12 Automated blood eosinophils/100 leukocytes 3 % 0-10 Automated blood basophils/100 leukocytes 1 % 0-10 Blood neutrophils automated count (number/volume) 4.9 10*3 1.8-7.8 Blood lymphocytes automated count (number/volume) 1.6 10*3 1.0-4.0 Blood monocytes automated count (number/volume) 0.9 10*3 0.0-1.0 Automated eosinophil count 0.3 10*3/uL 0.0-0.3 Automated blood basophil count (count/volume) 0.1 10*3/uL 0.0-0.1 Blood lactic acid measurement (moles/volume) - 03/20/18 18:28 Blood lactic acid measurement (moles/volume) 0.52 mmol/L 0.50-2.00 Comprehensive metabolic panel - 03/20/18 18:28 Serum or plasma sodium measurement (moles/volume) 140 mmol/L 135-145 Serum or plasma potassium measurement (moles/volume) 4.0 mmol/L 3.6-5.0 Serum or plasma chloride measurement (moles/volume) 106 mmol/L 98-107 Carbon dioxide 24 mmol/L 21-32 Serum or plasma anion gap determination (moles/volume) 10 mmol/L 5-14 Serum or plasma urea nitrogen measurement (mass/volume) 16 mg/dL 7-18 Serum or plasma creatinine measurement (mass/volume) 0.78 mg/dL 0.60-1.30 Serum or plasma urea nitrogen/creatinine mass ratio 21 NRG Serum or plasma creatinine measurement with calculation of estimated glomerular filtration rate > NRG Serum or plasma glucose measurement (mass/volume) 93 mg/dL 70-105 Serum or plasma calcium measurement (mass/volume) 9.8 mg/dL 8.5-10.1 Serum or plasma total bilirubin measurement (mass/volume) 0.3 mg/dL 0.1-1.0 Serum or plasma alkaline phosphatase measurement (enzymatic activity/volume) 103 U/L 40-136 Serum or plasma aspartate aminotransferase measurement (enzymatic activity/ volume) 16 U/L 5-34 Serum or plasma alanine aminotransferase measurement (enzymatic activity/volume ) 16 U/L 0-55 Serum or plasma protein measurement (mass/volume) 7.3 g/dL 6.4-8.2 Serum or plasma albumin measurement (mass/volume) 4.0 g/dL 3.2-4.5 CALCIUM CORRECTED 9.8 mg/dL 8.5-10.1 Magnesium - 03/20/18 18:28 Magnesium 2.0 mg/dL 1.8-2.4 Serum or plasma creatine kinase measurement (enzymatic activity/volume) - 03/20 18:28 Serum or plasma creatine kinase measurement (enzymatic activity/volume) 43 U/L 29-168 Serum or plasma creatine kinase MB measurement (enzymatic activity/volume) - 18:28 Serum or plasma creatine kinase MB measurement (enzymatic activity/volume) 0.8 ng/mL <6.6 Serum or plasma troponin i.cardiac measurement (mass/volume) - 03/20/18 18:28 Serum or plasma troponin i.cardiac measurement (mass/volume) < ng/ mL <0.028 Myoglobin, serum - 03/20/18 18:28 Myoglobin, serum 26.7 ng/mL 10.0-92.0 Serum or plasma amylase measurement (enzymatic activity/volume) - 03/20/18 18: 28 Serum or plasma amylase measurement (enzymatic activity/volume) 39 U /L 25-125 Lipase - 03/20/18 18:28 Lipase 34 U/L 8-78 Serum or plasma lithium measurement (moles/volume) - 03/20/18 18:28 BNP level 51.7 pg/mL <100.0 Bacterial blood culture - 03/20/18 18:28 Bacterial blood culture NG NRG Influenza virus A and B antigen detection - 03/20/18 18:38 FLU RESULT NEGATIVE FOR INFLUENZA A AND B ANTIGENS BY IA NRG PT panel in platelet poor plasma by coagulation assay - 03/20/18 18:50 Prothrombin time (PT) in platelet poor plasma by coagulation assay 13.7 s 12.2-14.7 INR in platelet poor plasma or blood by coagulation assay 1.0 0.8-1.4 Activated partial thromboplastin time (aPTT) in platelet poor plasma bycoagulation assay - 03/20/18 18:50 Activated partial thromboplastin time (aPTT) in platelet poor plasma bycoagulation assay 31 s 24-35 Bacterial blood culture - 03/20/18 18:50 Bacterial blood culture NG NR Sputum Gram stain - 03/20/18 19:21 Sputum Gram stain Mixed Bacterial Sandy NRG Bacterial sputum culture - 03/20/18 19:21 QUANTITY OF GROWTH . NRG Bacterial sputum culture SEE COMMEN NRG Encounters ACCT No. Visit Date/Time Discharge Status Pt. Type Provider Facility Loc./Unit Complaint [id number] 06/07/2014 10:44:00 06/07/2014 23:59:59 CLS Outpatient EVA WAKEFIELD MD [id number] 06/02/2014 11:11:00 06/02/2014 23:59:59 CLS Outpatient ARANZA HENSLEY MD [id number] 12/01/2013 09:17:00 12/01/2013 23:59:59 CLS Outpatient ARANZA HENSLEY MD [id number] 03/18/2013 10:43:00 03/18/2013 23:59:59 CLS Outpatient MARIBEL BRAND DO [id number] 03/10/2013 15:28:00 03/10/2013 23:59:59 CLS Outpatient ARANZA HENSLEY MD [id number] 03/10/2013 15:28:00 03/10/2013 23:59:59 CLS Outpatient ARANZA HENSLEY MD [id number] 10/14/2012 10:21:00 10/14/2012 23:59:59 CLS Outpatient ARANZA HENSLEY MD [id number] 04/26/2012 14:06:00 04/26/2012 23:59:59 [place] [id number] 12/11/2011 16:34:00 12/11/2011 23:59:59 CLS Outpatient ARANZA HENSLEY MD [id number] 12/11/2011 16:34:00 12/11/2011 23:59:59 CLS Outpatient ARANZA HENSLEY MD [id number] 11/06/2014 12:34:48 ACT Document Registration [id number] 05/17/2018 12:30:00 05/17/2018 23:59:59 CLS Outpatient [facility] [id number] 05/04/2018 10:00:00 05/04/2018 23:59:59 CLS Outpatient LOIS SANDERS DO [facility] PULM CHRONIC RESPIRATORY FAILURE [id number] 04/22/2018 11:17:00 04/22/2018 12:05:00 DIS Outpatient LOIS SANDERS DO [facility] SDC ALPHA 1 ANTITRYPSIN DEFICIENCY [id number] 03/20/2018 18:12:00 03/20/2018 20:10:00 DIS Emergency TAMMY MINOR DO [facility] ER CHEST PAIN [id number] 01/12/2018 10:00:00 02/22/2018 00:01:00 DIS Outpatient LOIS SANDERS DO [facility] PULM CHRONIC RESPIRATORY FAILURE [id number] 12/17/2017 00:09:00 12/17/2017 23:59:59 CLS Preadmit ERNESTO CAMPBELL [facility] ONC [id number] 09/24/2017 08:57:00 12/16/2017 00:01:00 DIS Outpatient ERNESTO CAMPBELL [facility] ONC [id number] 11/16/2017 09:03:00 11/16/2017 23:59:59 CLS Outpatient TOMMY LOIS OCAMPO [facility] RAD R06.02 SOB [id number] 10/27/2017 10:00:00 11/08/2017 00:01:00 DIS Outpatient TOMMY LOIS OCAMPO [facility] PULM CHRONIC RESPIRATORY FAILURE [id number] 10/29/2017 10:13:00 10/29/2017 23:59:59 CLS Outpatient JUSTINMAI AMAROINE E ORDINARY SEAMAN [facility] RAD R06.02 [id number] 09/23/2017 13:00:00 09/23/2017 23:59:59 CLS Outpatient MARIO ANDERSON ORDINARY SEAMAN [facility] RT SOB, ASTHMA,CHRONIC RESPIRATORY FAILURE [id number] 09/16/2017 15:07:00 09/16/2017 23:59:59 CLS Preadmit ERNESTO CAMPBELL [facility] ONC [id number] 07/07/2017 17:42:00 07/10/2017 11:10:00 DIS Inpatient ARANZA HENSLEY MD [facility] 4TH COPD EXCACERBATION [id number] 05/26/2017 00:33:00 05/26/2017 23:59:59 CLS Preadmit MAI ANDERSONINE Harvey ORDINARY SEAMAN [facility] PUL ASTHMA,SOB [id number] 04/07/2017 13:00:00 05/25/2017 00:01:00 DIS Outpatient MAI ANDERSONINE Harvey ORDINARY SEAMAN [facility] PUL ASTHMA,SOB [id number] 02/03/2017 13:00:00 02/23/2017 00:01:00 DIS Outpatient MARIO ANDERSON ORDINARY SEAMAN [facility] PUL ASTHMA,SOB [id number] 10/28/2016 13:00:00 11/22/2016 00:01:00 DIS Outpatient MARIO ANDERSON ORDINARY SEAMAN [facility] PUL ASTHMA,SOB [id number] 09/17/2016 09:01:00 11/22/2016 00:01:00 DIS Outpatient ERNESTO CAMPBELL [facility] ONC [id number] 08/21/2016 13:00:00 09/03/2016 00:01:00 DIS Outpatient MARIO ANDERSON APRN [facility] PULM ASTHMA,SOB [id number] 08/05/2016 12:32:00 08/05/2016 23:59:59 CLS Outpatient MARIO ANDERSON ORDINARY SEAMAN [facility] RAD J40,J96.10 [id number] 06/19/2016 11:07:00 06/19/2016 23:59:59 CLS Preadmit ANKITA TAM DO [facility] RAD Z12.39 BREAST CA SCREENING [id number] 05/27/2016 13:00:00 05/27/2016 00:01:00 DIS Outpatient MARIO ANDERSON APRN [facility] PULM ASTHMA,SOB [id number] 04/30/2016 12:37:00 04/30/2016 23:59:59 CLS Outpatient LOIS SANDERS DO [facility] RAD ASTHMA,SOB,ANXIETY [id number] 04/29/2016 14:02:00 04/29/2016 23:59:59 CLS Outpatient LOIS SANDERS DO [facility] LAB HYPOXEMIA REQUIRING SUPPLEMENTAL OXYGEN [id number] 01/28/2016 20:19:00 01/28/2016 23:25:00 DIS Emergency DANIEL BRITTON DO [facility] ER CP [id number] 10/11/2015 10:41:00 10/11/2015 23:59:59 CLS Preadmit ARANZA HENSLEY MD [facility] REHAB UNSPECIFIED COPD [id number] 08/14/2015 12:44:00 08/14/2015 23:59:59 CLS Outpatient REMY TREVIZO [facility] ONC [id number] 05/07/2015 12:37:00 08/05/2015 00:01:00 DIS Outpatient ERNESTO CAMPBELL [facility] ONC [id number] 08/03/2015 14:08:00 08/03/2015 23:59:59 CLS Outpatient REMY TREVIZO [employer] [facility] IRON DEFICIENCY, ANEMIA [id number] 06/07/2015 12:38:00 06/07/2015 23:59:59 CLS Outpatient ANKITA TAM DO [facility] RAD SCREENING [id number] 06/05/2015 19:08:00 06/05/2015 23:59:59 CLS Outpatient ANKITA TAM DO [facility] AMENORAHEA [id number] 05/02/2015 13:45:00 05/02/2015 23:59:59 CLS Outpatient ERNESTO CAMPBELL [facility] IRON DEFICIENCY, ANEMIA [id number] 11/06/2014 12:34:00 11/06/2014 23:59:59 CLS Outpatient REMY TREVIZO [employer] SU[employer]ENT [facility] ONC [id number] 07/08/2014 15:20:00 07/11/2014 13:47:00 DIS Inpatient ARANZA HENSLEY MD [facility] 4TH BILAT PNEUMONIA,UTI, VOMITING,HYPOKALEMIA,VOLUME DE [id number] 06/28/2014 09:38:00 06/28/2014 23:59:59 CLS Outpatient ARANZA HENSLEY MD [facility] ELECTROLYTES, ALPHA 1 DEFICIENCY [id number] 05/13/2014 15:35:00 05/16/2014 13:37:00 DIS Inpatient ARANZA HENSLEY MD [facility] 4TH COPD EXACERBATION [id number] 03/03/2014 12:55:00 03/03/2014 23:59:59 CLS Outpatient LOIS SANDERS DO [facility] RT CHRONIC RES. FAILURE, SOB , [id number] 01/12/2014 00:10:00 01/12/2014 23:59:59 CLS Preadmit ERNESTO CAMPBELL [facility] ONC OV [id number] 10/13/2013 12:33:00 01/11/2014 00:01:00 DIS Outpatient ERNESTO CAMPBELL [facility] ONC OV [id number] 10/20/2013 12:43:00 10/20/2013 23:59:59 CLS Outpatient ANKITA TAM DO [facility] RAD SCREENING [id number] 06/14/2013 14:03:00 09/12/2013 00:01:00 DIS Outpatient ERNESTO CAMPBELL [facility] ONC OV [id number] 06/14/2013 15:43:00 06/14/2013 23:59:59 CLS Outpatient REMY TREVIZO [employer]ING SUPERINTENDENT [facility]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 [id number] 05/12/2013 13:30:00 05/12/2013 17:25:00 DIS Emergency LANRE HERRERA L [facility] ER PNEUMONIA [id number] 02/10/2013 14:06:00 03/14/2013 00:01:00 DIS Outpatient ERNESTO CAMPBELL [facility] ONC OV [id number] 03/01/2013 22:55:00 03/06/2013 14:30:00 DIS Inpatient ASHU GUZMAN, EVA Alves [facility] 4TH PNEUMONIA, BIBASILAR [id number] 02/15/2013 21:25:00 02/15/2013 23:53:00 DIS Emergency TOMA VICK MD [facility] ER SOA [id number] 02/09/2013 20:21:00 02/10/2013 06:25:00 DIS Outpatient LOIS SANDERS DO [facility] SLEEP SNORING,HTN,CHOKING AND GASPING DURING SLEEP [id number] 12/16/2012 12:37:00 12/16/2012 23:59:59 CLS Outpatient REMY TREVIZOP [facility] ONC [id number] 12/08/2012 13:49:00 12/08/2012 23:59:59 CLS Outpatient LOIS SANDERS DO [facility] RT COPD,ASTHMA,MORBID OBESITY [id number] 11/05/2012 10:17:00 12/06/2012 00:01:00 DIS Outpatient ERNESTO CAMPBELL [facility] ONC OV [id number] 10/12/2012 11:40:00 10/12/2012 17:01:00 DIS Emergency LANRE HERRERA [facility] ER RIGHT LEG PAIN/ SWELLING/REDNESS [id number] 10/07/2012 12:58:00 10/07/2012 23:59:59 CLS Outpatient [id number] 09/26/2012 20:02:00 09/26/2012 23:41:00 DIS Emergency ALESSIA CRANDALL MD [facility] ER FELL OFF PORCH HIT R KNEE [id number] 09/17/2012 16:08:00 09/17/2012 23:59:59 CLS Outpatient [id number] 09/09/2012 13:43:00 09/09/2012 23:59:59 CLS Outpatient REMY TREVIZO [employer] [facility] ONC [id number] 08/12/2012 14:16:00 09/01/2012 09:02:00 DIS Outpatient ERNESTO CAMPBELL [facility] ONC OV [id number] 07/08/2014 13:44:00 Document Registration [id number] 07/08/2014 13:44:00 Document Registration [id number] 07/08/2014 13:44:00 Document Registration [id number] 07/08/2014 13:44:00 Document Registration [id number] 07/08/2014 13:44:00 Document Registration [id number] 07/08/2014 13:44:00 Document Registration [id number] 07/08/2014 13:44:00 Document Registration [id number] 05/10/2014 21:27:00 Document Registration [id number] 05/05/2014 10:03:00 Document Registration [id number] 04/19/2014 12:26:00 Document Registration [id number] 04/22/2012 13:24:00 Document Registration [id number] 01/08/2012 13:52:00 Document Registration [id number] 11/06/2011 12:58:00 Document Registration [id number] 10/01/2011 14:38:00 Document Registration [id number] 04/17/2011 12:28:00 Document Registration [id number] 01/07/2011 10:02:00 Document Registration [id number] 11/07/2010 13:35:00 Document Registration [id number] 08/13/2010 14:01:00 Document Registration [id number] 07/06/2010 16:53:00 Document Registration [id number] 04/16/2010 16:13:00 Document Registration [id number] 04/15/2010 14:57:00 Document Registration [id number] 03/14/2010 19:44:00 Document Registration [id number] 01/29/2010 23:21:00 Document Registration [id number] 01/15/2010 20:13:00 Document Registration [id number] 08/28/2009 10:30:00 Document Registration [id number] 06/18/2009 09:06:00 Document Registration
[2018-05-27 11:16] LABS: ALANINE AMINOTRANSFERASE 19 U/L (0-55); ALBUMIN 4.3 GM/DL (3.2-4.5); ALKALINE PHOSPHATASE 133 U/L (40-136); BILIRUBIN,TOTAL 0.5 MG/DL (0.1-1.0); BUN/CREATININE RATIO 24; CALCIUM 10.4 MG/DL (8.5-10.1); CARBON DIOXIDE 29 MMOL/L (21-32); CHLORIDE 101 MMOL/L (98-107); CREATININE SERUM 0.83 MG/DL (0.60-1.30); GFR ESTIMATED > 60; GLUCOSE 102 MG/DL (70-105); MAGNESIUM 2.2 MG/DL (1.8-2.4); SODIUM 138 MMOL/L (135-145)
[2018-05-27] MEDS ORDERED: CEFU500T63 PO (11:51)
[2018-05-27 12:04] VITALS: BP 122/86
== END 2018-05-27 12:11 | disposition home or self-care (01) ==
LOC: ER 10:34 → EDUNIT# 10:34 → ER 12:11
DX: J44.9 Chronic obstructive pulmonary disease, unspecified (principal); R00.2 Palpitations; J18.9 Pneumonia, unspecified organism; E78.00 Pure hypercholesterolemia, unspecified; I10 Essential (primary) hypertension; E66.9 Obesity, unspecified; F41.9 Anxiety disorder, unspecified; F32.9 Major depressive disorder, single episode, unspecified; Z82.49 Family history of ischemic heart disease and other diseases of the circulatory system; Z88.0 Allergy status to penicillin; Z79.51 Long term (current) use of inhaled steroids; Z79.52 Long term (current) use of systemic steroids; Z87.891 Personal history of nicotine dependence; Z98.51 Tubal ligation status; Z98.890 Other specified postprocedural states; Z99.81 Dependence on supplemental oxygen
CPT/HCPCS: 36415; 71045; 80053; 83735; 83874; 83880; 84484; 85025; 85610; 85730; 93005; 93041

== ENCOUNTER 2018-06-03 10:00 | Outpatient (RCR) | payer MEDICAID ==
[2018-03-04 10:00] VITALS: BP 115/60
[2018-03-04 11:00] VITALS: BP 120/80
[2018-03-09 10:00] VITALS: BP 130/70
[2018-03-09 11:00] VITALS: BP 118/60
[2018-03-11 10:00] VITALS: BP 109/60
[2018-03-11 11:00] VITALS: BP 98/58
[2018-03-16 10:00] VITALS: BP 121/78
[2018-03-16 10:58] VITALS: BP 125/80
[2018-03-18 10:00] VITALS: BP 100/70
[2018-04-06 09:52] VITALS: BP 117/60
[2018-04-06 11:00] VITALS: BP 140/60
[2018-04-08 08:45] VITALS: BP 130/70
[2018-04-13 11:00] VITALS: BP 130/80
[2018-04-15 10:00] VITALS: BP 130/90
[2018-04-15 11:00] VITALS: BP 120/70
[2018-04-22 10:05] VITALS: BP 112/80
[2018-04-22 11:05] VITALS: BP 120/80
[2018-04-27 10:00] VITALS: BP 115/60
[2018-04-27 10:48] VITALS: BP 130/70
[2018-04-29 10:10] VITALS: BP 120/50
[2018-04-29 11:00] VITALS: BP 118/60
[2018-05-04 10:00] VITALS: BP 110/70
[2018-05-04 11:00] VITALS: BP 115/60
[2018-05-11 10:00] VITALS: BP 115/50
[2018-05-11 11:05] VITALS: BP 128/70
[2018-05-25 10:05] VITALS: BP 130/80
[2018-05-25 11:00] VITALS: BP 115/60
[2018-05-27 09:55] VITALS: BP 120/80
[2018-06-03 10:00] VITALS: BP 115/65
[~2018-06-03 10:00] MED LIST changes: +CEFU500T63 PO
[2018-06-03 11:00] VITALS: BP 100/50
[2018-06-08 10:00] VITALS: BP 122/70
[2018-06-08 11:07] VITALS: BP 100/60
== END 2018-06-07 | disposition home or self-care (01) ==
LOC: PULM 10:00
PROVIDERS: ATTEND Internal Medicine Critical Care Medicine
DX: J96.10 Chronic respiratory failure, unspecified whether with hypoxia or hypercapnia (principal); J45.909 Unspecified asthma, uncomplicated; E88.01 Alpha-1-antitrypsin deficiency; E66.01 Morbid (severe) obesity due to excess calories
CPT/HCPCS: 93005

== ENCOUNTER → 2018-07-01 | Outpatient (CLI) | payer MEDICAID | LOC: CARD 11:09 | PROVIDERS: ATTEND Internal Medicine Cardiovascular Disease | DX: E88.01 Alpha-1-antitrypsin deficiency (principal); J43.8 Other emphysema; I10 Essential (primary) hypertension; R09.02 Hypoxemia; R06.02 Shortness of breath; E78.5 Hyperlipidemia, unspecified; Z87.891 Personal history of nicotine dependence | CPT/HCPCS: 93306 ==

== ENCOUNTER → 2018-07-06 | Outpatient (CLI) | payer MEDICAID ==
[~2018-07-06] VITALS: Ht 165.1 cm; Wt 134.7 kg
[~2018-07-06] MED LIST changes: +CATHETER FLUSH 10 ML SYR IV PRN; +REGADENOSON 0.4 MG/5 ML SYR (LEXISCAN) IV ONE
[2018-07-06 12:46] VITALS: BP 157/97
--- NOTE | 2018-07-12 21:59 | STRESS TEST ---
DATE OF SERVICE: 07/06/2018 RESTING AND POST REGADENOSON TECHNETIUM-99M TETROFOSMIN SPECT CT IMAGING RDERING PHYSICIAN: Dr. Carter. PRIMARY PHYSICIAN: Dr. Nino. CLINICAL DIAGNOSIS: Shortness of breath, hypertension, hypoxemia. Baseline images were carried out after injection of 10.22 mCi technetium-99m Tetrofosmin. This was followed by 0.4 mg regadenoson and 28.7 mCi of technetium-99m Tetrofosmin for stress imaging. The electrocardiogram showed sinus rhythm at baseline. There was incomplete right bundle-branch block. The electrocardiogram did not change significantly with the regadenoson infusion. A few isolated premature ventricular contractions were seen. The patient tolerated the procedure well. Review of images at rest and following stress does not indicate any significant perfusion defects consistent with significant myocardial ischemia or infarction. Gated images show normal global left ventricular systolic function with normal regional wall motion. Left ventricular ejection fraction is calculated to be 68%. Left ventricular end diastolic volume is 57 mL. TID is absent (1.06). CONCLUSIONS: 1. No evidence of significant myocardial ischemia or infarction on this study. 2. Normal regional wall motion. 3. Normal global left ventricular systolic function with a calculated ejection fraction of 68%. Job ID: [id number] DocumentID: [id number] Dictated Date: 07/12/2018 17:38:52 [employer] Senior Manager Date: 07/12/2018 21:59:08 Dictated By: JACKSON CARTER MD, MA, FACP, FACC,
== END ==
LOC: CARD 10:21
PROVIDERS: ATTEND Internal Medicine Cardiovascular Disease
DX: E88.01 Alpha-1-antitrypsin deficiency (principal); J44.9 Chronic obstructive pulmonary disease, unspecified; I10 Essential (primary) hypertension; R09.02 Hypoxemia; R06.02 Shortness of breath; E78.5 Hyperlipidemia, unspecified; Z87.891 Personal history of nicotine dependence
CPT/HCPCS: 78452; 93017; 93225; 93226

== ENCOUNTER 2018-07-22 09:00 | Outpatient (RCR) | payer MEDICAID ==
[2018-06-24 10:00] VITALS: BP 130/82
[2018-06-24 11:03] VITALS: BP 116/70
[2018-06-29 10:00] VITALS: BP 100/53
[2018-06-29 10:58] VITALS: BP 100/50
[2018-07-01 10:00] VITALS: BP 120/60
[2018-07-01 10:59] VITALS: BP 115/60
[2018-07-08 10:05] VITALS: BP 112/78
[2018-07-08 11:02] VITALS: BP 108/80
[2018-07-20 09:50] VITALS: BP 130/80
[2018-07-20 10:00] VITALS: BP 130/80
[2018-07-20 11:00] VITALS: BP 120/60
[~2018-07-22 09:00] MED LIST changes: -CATHETER FLUSH 10 ML SYR IV PRN; -REGADENOSON 0.4 MG/5 ML SYR (LEXISCAN) IV ONE
[2018-07-22 10:00] VITALS: BP 130/60
[2018-07-22 11:00] VITALS: BP 122/84
== END 2018-09-22 ==
LOC: PULM 09:00
PROVIDERS: ATTEND Internal Medicine Critical Care Medicine
DX: J96.10 Chronic respiratory failure, unspecified whether with hypoxia or hypercapnia (principal); J45.909 Unspecified asthma, uncomplicated; E88.01 Alpha-1-antitrypsin deficiency; E66.01 Morbid (severe) obesity due to excess calories

== ENCOUNTER → 2018-07-27 | Outpatient (CLI) | payer MEDICAID ==
--- NOTE | 2018-07-27 22:19 | Diagnostic Imaging Report ---
INDICATION: Routine screening. Comparison is made with prior mammogram from 06/07/2015 and 10/20/2013. 2-D and 3-D bilateral screening mammography was performed with CAD. The current study was also evaluated with a Computer Aided Detection (CAD) system. 3-D tomosynthesis was also performed and reviewed. Scattered fibroglandular densities are identified bilaterally. Intraparenchymal lymph node in the upper outer right breast is stable. No new mass or malignant appearing microcalcifications are seen. Axillae are unremarkable apart from Ymdrkl-p-Otie hub in the left axilla. IMPRESSION: No mammographic features suspicious for malignancy are identified. ACR BI-RADS Category 2: Benign findings. Result letter will be mailed to the patient. Note: At least 10% of breast cancer is not imaged by mammography. Dictated by: Dictated on workstation # [id number]
== END ==
LOC: RAD 10:37
PROVIDERS: ATTEND Nurse Practitioner
DX: Z12.31 Encounter for screening mammogram for malignant neoplasm of breast (principal)
CPT/HCPCS: 77067

== ENCOUNTER → 2018-09-16 | Outpatient (CLI) | payer MEDICAID | LOC: LAB 11:38 | PROVIDERS: ATTEND Nurse Practitioner Family | DX: E88.01 Alpha-1-antitrypsin deficiency (principal); J43.9 Emphysema, unspecified | CPT/HCPCS: 36415; 82103 ==

== ENCOUNTER 2018-10-04 13:29 | Outpatient (RCR) | payer MEDICAID ==
[2018-09-28 10:46] LABS: BASOPHILS # (AUTO) 0.1 10^3/uL (0.0-0.1); BASOPHILS % (AUTO) 1 % (0-10); EOSINOPHILS # (AUTO) 0.2 10^3/uL (0.0-0.3); EOSINOPHILS % (AUTO) 4 % (0-10); HEMATOCRIT 43 % (35-52); HEMOGLOBIN 14.3 G/DL (11.5-16.0); LYMPHOCYTES # (AUTO) 1.3 X 10^3 (1.0-4.0); LYMPHOCYTES % (AUTO) 20 % (12-44); MEAN CORPUSCULAR HEMOGLOBIN 29 PG (25-34); MEAN CORPUSCULAR HGB CONC 33 G/DL (32-36); MEAN CORPUSCULAR VOLUME 89 FL (80-99); MEAN PLATELET VOLUME 10.8 FL (7.4-10.4); MONOCYTES # (AUTO) 0.7 X 10^3 (0.0-1.0); MONOCYTES % (AUTO) 11 % (0-12); NEUTROPHILS % (AUTO) 64 % (42-75); PLATELET COUNT 176 10^3/uL (130-400); RED CELL DISTRIBUTION WIDTH 13.4 % (10.0-14.5); WHITE BLOOD COUNT 6.2 10^3/uL (4.3-11.0)
[2018-09-28 10:53] LABS: ALANINE AMINOTRANSFERASE 21 U/L (0-55); ALBUMIN 4.2 GM/DL (3.2-4.5); ALKALINE PHOSPHATASE 135 U/L (40-136); BILIRUBIN,TOTAL 0.3 MG/DL (0.1-1.0); BUN/CREATININE RATIO 21; CARBON DIOXIDE 25 MMOL/L (21-32); CHLORIDE 104 MMOL/L (98-107); CREATININE SERUM 0.76 MG/DL (0.60-1.30); GFR ESTIMATED > 60; GLUCOSE 93 MG/DL (70-105); POTASSIUM 4.5 MMOL/L (3.6-5.0); SODIUM 137 MMOL/L (135-145); TOTAL PROTEIN 7.6 GM/DL (6.4-8.2)
[~2018-10-04 13:29] MED LIST changes: -ACLI400A2 IH; +ACLI400A3 IH
== END 2018-12-27 | disposition home or self-care (01) ==
LOC: ONC 13:29
PROVIDERS: ATTEND Internal Medicine Hematology & Oncology
DX: D50.9 Iron deficiency anemia, unspecified (principal); E88.01 Alpha-1-antitrypsin deficiency; J43.9 Emphysema, unspecified; E66.9 Obesity, unspecified; F41.9 Anxiety disorder, unspecified; F30.9 Manic episode, unspecified; I10 Essential (primary) hypertension
CPT/HCPCS: 36415; 80053; 82728; 85025; 99213

== ENCOUNTER 2018-11-29 20:36 | Outpatient (CLI) | payer MEDICAID | END 2018-11-30 06:10 | disposition home or self-care (01) | LOC: SLEEP 20:36 | PROVIDERS: ATTEND Nurse Practitioner Family | DX: G47.10 Hypersomnia, unspecified (principal); J96.10 Chronic respiratory failure, unspecified whether with hypoxia or hypercapnia; J45.909 Unspecified asthma, uncomplicated; E66.01 Morbid (severe) obesity due to excess calories; E88.01 Alpha-1-antitrypsin deficiency ==

== ENCOUNTER → 2020-01-27 | Outpatient (CLI) | payer MEDICAID ==
[~2020-01-27] MED LIST changes: +ALPR.25T PO; -MONT10TA24 PO; +MONT10TA97 PO; -TRAZ-190 PO; +TRAZ-227 PO
--- NOTE | 2020-01-27 13:57 | Diagnostic Imaging Report ---
CT Lung Screening INDICATION:44 pack year smoking history for low dose CT screening. CORRELATION made with CT angio protocol chest performed 11/16/2017. TECHNIQUE: Noncontrast, low-dose CT imaging performed according to the lung cancer screening protocol. Auto Exposure Controls were utilize during the CT exam to meet ALARA standards for radiation dose reduction. FINDINGS:There is a new irregular nodule in the right upper lobe at the apex laterally with its nodular component measuring 1.5 x 0.8 cm showing somewhat spiculated borders. Anteriorly there is a thin linear component extending to the pleural surface and the nodular element abuts the pleura at the apex more superolaterally. While its morphology favors scarring, its development from the comparison of 11/16/2017 is such that short-term follow-up is indicated. Linear areas of scarring in the lingula and right middle lobe, stable. There is infrahilar and perihilar cylindrical bronchiectasis, mildly increased, with a few areas of airway mucoid impaction but no significant postobstructive disease. No effusion. No pneumothorax. IMPRESSION: 1. New irregular nodule right apex with bandlike curvilinear components extending to abut the pleura anteriorly and laterally favored morphologically to be scar but new from a study of 2018. Given solid component of 1.5 cm, further workup is needed for this suspicious finding. Metabolic PET CT recommended. LUNG-RADS CATEGORY:4B OTHER SIGNIFICANT FINDINGS:Centrilobular emphysema and chronic bronchiectasis Dictated by: Dictated on workstation # [id number]
== END ==
LOC: RAD 13:15
PROVIDERS: ATTEND Nurse Practitioner Family
DX: Z12.2 Encounter for screening for malignant neoplasm of respiratory organs (principal); R91.1 Solitary pulmonary nodule; Z87.891 Personal history of nicotine dependence

== ENCOUNTER → 2020-02-28 | Outpatient (CLI) | payer MEDICAID ==
--- NOTE | 2020-02-28 13:50 | Diagnostic Imaging Report ---
INDICATION: Right lung mass. TECHNIQUE: Serum blood glucose level at the time of injection is 98 mg/dL. Patient was administered 16.2 mCi F-18 FDG intravenously in right hand and PET imaging was performed from the top of the skull to mid thighs. Noncontrast CT was also performed for attenuation correction and anatomic correlation. COMPARISON: No prior PET/CT studies are available for comparison. Comparison is made with CT screening chest study from 01/27/2020. FINDINGS: There is symmetric activity throughout the brain. Soft tissues of the neck are unremarkable. The area of irregular curvilinear opacity in the right lung apex does not demonstrate FDG avidity. This appears less prominent on today's study when compared with recent exam from one month earlier. This could represent an area of minimal infiltrate or atelectasis. No other regions of pulmonary parenchymal hypermetabolism are seen. The mediastinum and héctor are unremarkable. There is physiologic activity throughout the GI and tracts. No suspicious hypermetabolism is identified. IMPRESSION: Unremarkable PET/CT study. The area of irregular curvilinear density in the right lung apex does not demonstrate FDG avidity. This is actually less prominent on today's conventional CT chest and may have represented an area of minimal infiltrate or atelectasis. Dictated by: Dictated on workstation # [id number]
== END ==
LOC: RAD 08:50
PROVIDERS: ATTEND Nurse Practitioner Family
DX: J44.9 Chronic obstructive pulmonary disease, unspecified (principal); R91.8 Other nonspecific abnormal finding of lung field
CPT/HCPCS: 78815; A9552